=== PATIENT | male | born 1945 | race Asian ===

== ENCOUNTER → 2016-10-04 | Outpatient (CLI) | payer BC ==
[~2016-10-04] MED LIST: LEVO100T PO
== END | disposition home or self-care (01) ==
LOC: C.LABSPEC 12:26
PROVIDERS: ATTEND Urology
DX: R97.20 Elevated prostate specific antigen [PSA] (principal)

== ENCOUNTER → 2016-11-20 | Outpatient (CLI) | payer BC ==
[2016-11-20 10:50] LABS: COMPLETE YES; EOS % 4.5 %; HEMATOCRIT 41.1 % (42-52); IG% 0.2 %; LYMPH % 24.4 %; LYMPH ABS # 1.09 K/uL (1.2-3.4); MEAN CELL VOLUME 78.6 fL (80-100); MEAN CORPUSCULAR HEMOGLOBIN 25.6 pg (25-34); MEAN CORPUSCULAR HGB CONC 32.6 g/dl (32-36); MEAN PLATELET VOLUME 9.7 fL (7.4-10.4); MONO % 7.8 %; NEUT % 63.1 %; PLATELET COUNT 228 K/uL (130-400); RED BLOOD COUNT 5.23 M/uL (4.7-6.1); WHITE BLOOD COUNT 4.47 K/uL (4.8-10.8)
[2016-11-20 11:37] LABS: ALB/GLOB RATIO 1.3 (0.9-2); ALKALINE PHOSPHATASE 62 U/L (45-117); ALT/SGPT 27 U/L (12-78); AST/SGOT 13 U/L (15-37); BLOOD UREA NITROGEN 10 mg/dl (7-18); BUN/CREATININE RATIO 9.2 (10-20); CALCIUM 9.2 mg/dl (8.5-10.1); CARBON DIOXIDE 28 mmol/L (21-32); CHLORIDE 101 mmol/L (98-107); CHOLESTEROL 173 mg/dl (0-200); GLUCOSE 95 mg/dl (70-99); POTASSIUM 4.4 mmol/L (3.5-5.1); SODIUM 136 mmol/L (136-145)
[2016-11-20 11:51] LABS: CHOLESTEROL/HDL RATIO 3.2; HDL CHOLESTEROL 54 mg/dl; LDL CHOLESTEROL CALCULATED 105 mg/dl; THYROID STIMULATING HORMONE 0.821 uIu/ml (0.300-4.500); TRIGLYCERIDES 71 mg/dl (0-150); VERY LOW DENSITY LIPOPROT CALC 14 mg/dl
== END ==
LOC: C.LABBC 08:28
PROVIDERS: ATTEND Physician Assistant
DX: D64.9 Anemia, unspecified (principal); E78.5 Hyperlipidemia, unspecified; E03.9 Hypothyroidism, unspecified

== ENCOUNTER → 2017-08-07 | Outpatient (CLI) | payer OTHER | END | disposition home or self-care (01) | LOC: C.LAB 11:32 | PROVIDERS: ATTEND Urology | DX: R97.20 Elevated prostate specific antigen [PSA] (principal) ==

== ENCOUNTER 2022-11-08 20:44 | Inpatient (IN) ==
[2022-11-08] MEDS ORDERED: CLOPIDOGREL BISULFATE 300 MG TAB PO STA (20:53)
[2022-11-08] MEDS ORDERED: Heparin IV Adult Wt-Based Low-Dose WITH Bolus Protocol STA ×2 (20:53→21:09)
[2022-11-08] MEDS ORDERED: ATROPINE SO4 1 MG/ML 1ML VIAL ONE (20:58)
[2022-11-08] MEDS ORDERED: SODIUM CHLORIDE 0.9% 500 ML IV SCH (21:00)
--- NOTE | 2022-11-08 21:00 | Emergency Department Note ---
Impression & Plan ST elevation (STEMI) myocardial infarction ED Provider Note NAME: GORDON VERAS AGE: 77 SEX: M : 1945 ARRIVES VIA: Ambulance INFORMANT: Patient, ED PROVIDER(S): Haresh Wilkinson MD CHIEF COMPLAINT: Jaw pain MEDICAL DECISION MAKING: Patient presents due to concern for jaw pain which is exertional in nature with concerning dynamic EKG changes via EMS. Given this concern I did initiate a heart alert upon entering the patient's room. Patient was ordered IV heparin, Plavix 300 mg p.o. as the patient had already received aspirin. Given concern for possible inferior UT nitro was held and the patient does not have active chest pains. IV was established blood work was initiated. The patient was bradycardic in the 40s and 50s with pacer pads were placed. The patient's blood work shows a normal white count hemoglobin of 12 mild anemia. Platelet count is unremarkable. Patient's anemia is chronic and stable from comparison. Kidney function is unremarkable. Lab glucose 172. Electrolytes are unremarkable. COVID-negative. Chest x-ray is unremarkable. Dr. Brooks did evaluate the patient at the bedside. We did discuss the patient's care and the patient was immediately taken to [facility]. I did speak the on- call hospitalist service Dr. Winters for admission post catheterization. Troponin of 11. 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 Critical Care: I have personally spent 45 minutes of critical care time in direct management of this patient. This includes bedside care, interpretation of diagnostic studies, and testing, discussion with consultants, patient, and family members, and other require inpatient management activities. This 45 minutes is in excess of all separately billable procedures. Prior /Outside records reviewed: I did review the patient's nephrology visit with Dr. Tovar from September 28, 2022. Differential diagnosis: Cardiac ischemia, aortic dissection, pulmonary embolism, pneumothorax, pneumonia, pericarditis, myocarditis, esophageal rupture, GERD, cholecystitis, pancreatitis, musculoskeletal, as well as other pathologies. Diagnostics, as interpreted by me: ECG: EMS EKG #1 sinus bradycardia with first-degree AV block, rate of 41, normal QRS normal axis no obvious ST elevations possible slight depressions in the lateral leads. Second EMS EKG interpreted by me Sinus, rate of 68, normal QRS, normal axis, T wave inversion in the high lateral leads no obvious ST elevation. Repeat EMS EKG #3 interpreted by me Sinus rhythm with second-degree AV block, rate of 47, normal QRS duration, normal axis, ST depressions anteriorly and laterally deeper depressions in the high lateral leads. Cardiac monitoring: An order was placed for continuous cardiac monitoring. The monitor shows a rate of 44 with 2-1 heart block rhythm. Patient was placed on pulse oximetry Medical decision rules: None Imaging studies: See below I did inform the interpreted the patient's chest x-ray which shows no obvious pneumonia or pneumothorax. HPI: Patient presents via EMS due to concern for jaw pain. Patient states that he developed symptoms earlier in the afternoon and noticed that the left side of his jaw and neck. Patient denies any chest pains or shortness of breath no leg swelling or calf pain. Patient denies any cough or fevers. The patient does have a known history of hypertension and hyperlipidemia. The patient does take medications and takes them regularly. Patient denies any falls or trauma. The patient did try a baby aspirin as well as a Pepcid which she thought may be mildly improved his symptoms. The patient did notice that he had exertional jaw pain today. EMS did receive the patient they did send EKGs. Patient did receive full dose aspirin in route but no nitro. PAST MEDICAL HISTORY: See Below PAST SURGICAL HISTORY: See Below SOCIAL HISTORY: See Below HOME MEDICATIONS: See Below ALLERGIES: See Below VITALS: See Below PHYSICAL EXAMINATION: GENERAL: NAD, wearing a mask, non-toxic. EYE EXAM: Normal conjunctiva. PERRL, no anisocoria and EOM's grossly intact w/o pain. NECK: Supple, no nuchal rigidity, no adenopathy, non-tender. No signs of meningismus. FROM of the neck with good chin to chest and neck extension. No stridor. LUNGS: Clear to auscultation. Normal chest wall mechanics. HEART: Bradycardic, no MRG. ABDOMEN: Abdomen soft, non-tender, no masses, no rebound or guarding. BACK: No CVA TTP. SKIN: No rashes and no bruising. UPPER EXTREMITIES: Upper extremities are grossly normal. LOWER EXTREMITIES: Grossly normal, no edema. Negative Homans' sign bilaterally NEURO EXAM: A&O x3, cranial nerves II-XII grossly intact, normal speech, moves all 4 extremities. Past Med/Surg History Medical History Anemia Benign prostatic hyperplasia with urinary obstruction Hyperlipidemia Hypertension Hypothyroidism Nephrolithiasis Non Hodgkin's lymphoma Surgical History History of colonoscopy History of lithotripsy History of lymph node biopsy lymphadenectomy History of repair of rotator cuff History of tonsillectomy Status post biopsy of skin excisional node biopsy left neck area Status post cataract extraction Family History Father , age 70 Stroke syndrome Stroke Mother , age 55 Hypertension Family history of cervical cancer Ovarian cancer Sister Hypertension Aunt Breast cancer Other Cancer Heart disease Denies family history of Prostate cancer Myocardial infarction Lung cancer Colorectal cancer Social History Smoking Status: Never smoker Second Hand Exposure: No; Do You Dip or Chew Tobacco: No; Hx Alcohol Use: No Hx Substance Use: No Preferred Language: Samoan Communication Ability: Effective Visual Impairment: Limited Hearing Ability: Normal Per Diem Nurse Required: No Beliefs That Will Affect Care: None marital status: Current Living Situation: Spouse Current Living Situation Comment: home with current occupational status: employed 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 [employer] How many Children do You have: 1 Other Information That Helps Us Care for You: No Feels Safe at Home: Yes Safety Concerns: Feels Safe At This Time Childhood Exposure to Second-Hand Smoke: Yes (father smoked ) caffeine: Yes (drinks 2-3 cups coffee daily ) Dental Care, Regularly: Yes Physical Activity Frequency: 5-6 Times per Week Seatbelt Use: always Sunscreen Use: No Assistive Devices: None Allergies Allergies Allergy/AdvReac Type Severity Reaction Status Date / Time No Known Allergies Allergy Unknown Verified 11/08/22 21:15 Home Meds Home Medications Medication Instructions Recorded Confirmed biotin 5 mg capsule 5 mg PO DAILY 11/10/19 11/08/22 cholecalciferol (vitamin D3) 125 125 mcg PO DAILY 11/10/19 11/08/22 mcg (5,000 unit) capsule krill oil 500 mg capsule 500 mg PO DAILY 02/17/21 11/08/22 multivitamin 1 tab PO DAILY 11/08/22 11/08/22 Previous Rx's Medication Instructions Recorded lisinopril 10 mg tablet 10 mg PO DAILY #90 tabs 01/23/22 pravastatin 20 mg tablet 20 mg PO DAILY #90 tabs 01/23/22 levothyroxine 75 mcg tablet 75 mcg PO DAILY #90 tabs 08/03/22 Results & Data (ED) Vital Signs Vital Signs - 24 hr 11/08/22 20:47 11/08/22 20:47 11/08/22 20:47 Temperature 36.5 C 36.5 C Temperature Source Oral Pulse Rate 46 L 43 L Pulse Rate from SpO2 Sensor Pulse Rhythm Regular Pulse Strength Normal Respiratory Rate 20 20 20 Respiratory Effort / Characteristics Non-Labored Spontaneous Non-Labored Spontaneous Respiratory Depth Normal Normal Respiratory Pattern Regular Blood Pressure 116/58 L Blood Pressure [Right Arm] 120/55 L Blood Pressure Mean 77 Blood Pressure Mean [Right Arm] 76 Pulse Oximetry 100 98 99 Oxygen Delivery Method Room Air Room Air Room Air Sepsis Recent Fever Within 48 Hours No Sepsis New/Unexplained Change in Mental Status No Sepsis Action Taken by Nursing No Action Required 11/08/22 20:49 11/08/22 20:53 11/08/22 20:53 Temperature Temperature Source Pulse Rate 51 L Pulse Rate from SpO2 Sensor Pulse Rhythm Pulse Strength Respiratory Rate Respiratory Effort / Characteristics Respiratory Depth Respiratory Pattern Blood Pressure Blood Pressure [Right Arm] Blood Pressure Mean Blood Pressure Mean [Right Arm] Pulse Oximetry 98 98 Oxygen Delivery Method Room Air Room Air Sepsis Recent Fever Within 48 Hours Sepsis New/Unexplained Change in Mental Status Sepsis Action Taken by Nursing 11/08/22 20:50 11/08/22 20:54 11/08/22 20:54 Temperature Temperature Source Pulse Rate 50 L 42 L Pulse Rate from SpO2 Sensor 49 L Pulse Rhythm Pulse Strength Respiratory Rate 21 22 Respiratory Effort / Characteristics Respiratory Depth Respiratory Pattern Blood Pressure 116/58 L 120/55 L Blood Pressure [Right Arm] Blood Pressure Mean 77 76 Blood Pressure Mean [Right Arm] Pulse Oximetry 97 Oxygen Delivery Method Sepsis Recent Fever Within 48 Hours Sepsis New/Unexplained Change in Mental Status Sepsis Action Taken by Nursing 11/08/22 20:55 11/08/22 21:00 11/08/22 21:00 Temperature Temperature Source Pulse Rate 44 L 48 L Pulse Rate from SpO2 Sensor 41 L 46 L Pulse Rhythm Pulse Strength Respiratory Rate 22 24 Respiratory Effort / Characteristics Respiratory Depth Respiratory Pattern Blood Pressure 128/60 Blood Pressure [Right Arm] Blood Pressure Mean 82 Blood Pressure Mean [Right Arm] Pulse Oximetry 98 97 Oxygen Delivery Method Sepsis Recent Fever Within 48 Hours Sepsis New/Unexplained Change in Mental Status Sepsis Action Taken by Nursing 11/08/22 22:34 11/08/22 22:35 11/08/22 22:35 Temperature Temperature Source Pulse Rate 100 H 98 H Pulse Rate from SpO2 Sensor 100 H Pulse Rhythm Pulse Strength Respiratory Rate 18 17 Respiratory Effort / Characteristics Respiratory Depth Respiratory Pattern Blood Pressure 120/73 Blood Pressure [Right Arm] Blood Pressure Mean 78 Blood Pressure Mean [Right Arm] Pulse Oximetry 97 Oxygen Delivery Method Sepsis Recent Fever Within 48 Hours Sepsis New/Unexplained Change in Mental Status Sepsis Action Taken by Prison Medications Current Medication List: was personally reviewed by me Laboratory Data Attestation: I reviewed the patient's lab results. 11/08/22 20:55 11/08/22 20:55 Lab Results 11/08/22 11/08/22 11/08/22 Range/Units 20:50 20:55 20:55 WBC 7.88 (4.8-10.8) K/ul RBC 4.38 L (4.70-6.10) M/uL Hgb 12.0 L (14.0-18.0) g/dl POC Hgb (14.0-18.0) g/dl Hct 36.3 L (42.0-52.0) % POC Hct (42-52) % MCV 82.9 (80.0-100.0) fL MCH 27.4 (25.0-34.0) pg MCHC 33.1 (32.0-36.0) g/dL RDW Std Deviation 36.0 L (36.4-46.3) fL RDW Coeff of John 11.9 (11.5-14.5) % Plt Count 239 (130-400) K/uL MPV 10.0 (9.4-12.4) fL Immature Gran % (Auto) 0.4 % Neut % (Auto) 55.8 % Lymph % (Auto) 32.4 % [place] % (Auto) 7.5 % Eos % (Auto) 3.6 % Baso % (Auto) 0.3 % Neut # (Auto) 4.41 (1.40-6.50) K/uL Lymph # (Auto) 2.55 (1.2-3.4) K/uL [place] # (Auto) 0.59 (0.11-0.59) K/uL Eos # (Auto) 0.28 (0-0.50) K/uL Baso # (Auto) 0.02 (0-0.2) K/uL Immature Gran # (Auto) 0.03 (0.01-0.20) K/uL PT 10.6 (9.0-12.0) Seconds INR 1.0 (0.9-1.1) APTT 25.6 (21.0-31.0) Seconds PTT Ratio 0.9 Activ Coag Time Kaolin (94-140) SECONDS POC Sodium (135-144) mmol/L Sodium (136-145) mmol/L POC Potassium (3.3-5.0) mmol/L Potassium (3.5-5.1) mmol/L POC Chloride (101-112) mmol/L Chloride (98-107) mmol/L Carbon Dioxide (21-32) mmol/L POC Total CO2 (24-31) mmol/L Anion Gap (3-11) POC Anion Gap (16-25) mmol/L POC BUN (7-18) mg/dl BUN (6-23) mg/dl Creatinine (0.6-1.4) mg/dl POC Creatinine (0.6-1.3) mg/dl Est Cr Clr Drug Dosing ml/min Est GFR ( Amer) ml/min Est GFR (Non-Af Amer) ml/min BUN/Creatinine Ratio (10-20) Glucose (70-99(Fasting)) mg/dl POC Glucose (other) (70-99) mg/dl Calcium (8.6-10.3) mg/dl POC Ioniz Calcium Mandy (1.12-1.32) mmol/l Magnesium (1.7-2.4) mg/dl Total Bilirubin (0.2-1.0) mg/dl AST (13-39) U/L ALT (7-52) U/L Alkaline Phosphatase (34-104) U/L Total Creatine Kinase (30-223) U/L Troponin I High Sens (0-20) pg/ml B-Natriuretic Peptide (0-100) pg/ml Total Protein (6.0-8.3) gm/dl Albumin (3.4-5.0) gm/dl Globulin (2.5-4.0) gm/dl Albumin/Globulin Ratio (0.9-2) Lipase (11-82) U/L TSH (0.300-4.500) uIu/ml SARS-CoV-2, RNA, NAAT NEGATIVE (NEGATIVE) 11/08/22 11/08/22 11/08/22 Range/Units 20:55 20:55 20:55 WBC (4.8-10.8) K/ul RBC (4.70-6.10) M/uL Hgb (14.0-18.0) g/dl POC Hgb (14.0-18.0) g/dl Hct (42.0-52.0) % POC Hct (42-52) % MCV (80.0-100.0) fL MCH (25.0-34.0) pg MCHC (32.0-36.0) g/dL RDW Std Deviation (36.4-46.3) fL RDW Coeff of John (11.5-14.5) % Plt Count (130-400) K/uL MPV (9.4-12.4) fL Immature Gran % (Auto) % Neut % (Auto) % Lymph % (Auto) % [place] % (Auto) % Eos % (Auto) % Baso % (Auto) % Neut # (Auto) (1.40-6.50) K/uL Lymph # (Auto) (1.2-3.4) K/uL [place] # (Auto) (0.11-0.59) K/uL Eos # (Auto) (0-0.50) K/uL Baso # (Auto) (0-0.2) K/uL Immature Gran # (Auto) (0.01-0.20) K/uL PT (9.0-12.0) Seconds INR (0.9-1.1) APTT (21.0-31.0) Seconds PTT Ratio Activ Coag Time Kaolin (94-140) SECONDS POC Sodium (135-144) mmol/L Sodium 137 (136-145) mmol/L POC Potassium (3.3-5.0) mmol/L Potassium 3.9 (3.5-5.1) mmol/L POC Chloride (101-112) mmol/L Chloride 104 (98-107) mmol/L Carbon Dioxide 28 (21-32) mmol/L POC Total CO2 (24-31) mmol/L Anion Gap 5 (3-11) POC Anion Gap (16-25) mmol/L POC BUN (7-18) mg/dl BUN 16 (6-23) mg/dl Creatinine 1.12 (0.6-1.4) mg/dl POC Creatinine (0.6-1.3) mg/dl Est Cr Clr Drug Dosing 55.3 ml/min Est GFR ( Amer) 72.5 ml/min Est GFR (Non-Af Amer) 62.6 ml/min BUN/Creatinine Ratio 14.3 (10-20) Glucose 172 H (70-99(Fasting)) mg/dl POC Glucose (other) (70-99) mg/dl Calcium 9.1 (8.6-10.3) mg/dl POC Ioniz Calcium Mandy (1.12-1.32) mmol/l Magnesium 1.9 (1.7-2.4) mg/dl Total Bilirubin 0.3 (0.2-1.0) mg/dl AST 15 (13-39) U/L ALT 15 (7-52) U/L Alkaline Phosphatase 56 (34-104) U/L Total Creatine Kinase 71 (30-223) U/L Troponin I High Sens 11.7 (0-20) pg/ml B-Natriuretic Peptide 23 (0-100) pg/ml Total Protein 6.2 (6.0-8.3) gm/dl Albumin 4.1 (3.4-5.0) gm/dl Globulin 2.1 L (2.5-4.0) gm/dl Albumin/Globulin Ratio 2.0 (0.9-2) Lipase 31 (11-82) U/L TSH 1.583 (0.300-4.500) uIu/ml SARS-CoV-2, RNA, NAAT (NEGATIVE) 11/08/22 11/08/22 Range/Units 21:02 21:53 WBC (4.8-10.8) K/ul RBC (4.70-6.10) M/uL Hgb (14.0-18.0) g/dl POC Hgb 12.2 L (14.0-18.0) g/dl Hct (42.0-52.0) % POC Hct 36 L (42-52) % MCV (80.0-100.0) fL MCH (25.0-34.0) pg MCHC (32.0-36.0) g/dL RDW Std Deviation (36.4-46.3) fL RDW Coeff of John (11.5-14.5) % Plt Count (130-400) K/uL MPV (9.4-12.4) fL Immature Gran % (Auto) % Neut % (Auto) % Lymph % (Auto) % [place] % (Auto) % Eos % (Auto) % Baso % (Auto) % Neut # (Auto) (1.40-6.50) K/uL Lymph # (Auto) (1.2-3.4) K/uL [place] # (Auto) (0.11-0.59) K/uL Eos # (Auto) (0-0.50) K/uL Baso # (Auto) (0-0.2) K/uL Immature Gran # (Auto) (0.01-0.20) K/uL PT (9.0-12.0) Seconds INR (0.9-1.1) APTT (21.0-31.0) Seconds PTT Ratio Activ Coag Time Kaolin 299 H (94-140) SECONDS POC Sodium 139 (135-144) mmol/L Sodium (136-145) mmol/L POC Potassium 3.7 (3.3-5.0) mmol/L Potassium (3.5-5.1) mmol/L POC Chloride 101 (101-112) mmol/L Chloride (98-107) mmol/L Carbon Dioxide (21-32) mmol/L POC Total CO2 25 (24-31) mmol/L Anion Gap (3-11) POC Anion Gap 17.0 (16-25) mmol/L POC BUN 15 (7-18) mg/dl BUN (6-23) mg/dl Creatinine (0.6-1.4) mg/dl POC Creatinine 1.2 (0.6-1.3) mg/dl Est Cr Clr Drug Dosing ml/min Est GFR ( Amer) ml/min Est GFR (Non-Af Amer) ml/min BUN/Creatinine Ratio (10-20) Glucose (70-99(Fasting)) mg/dl POC Glucose (other) 164 H (70-99) mg/dl Calcium (8.6-10.3) mg/dl POC Ioniz Calcium Mandy 1.22 (1.12-1.32) mmol/l Magnesium (1.7-2.4) mg/dl Total Bilirubin (0.2-1.0) mg/dl AST (13-39) U/L ALT (7-52) U/L Alkaline Phosphatase (34-104) U/L Total Creatine Kinase (30-223) U/L Troponin I High Sens (0-20) pg/ml B-Natriuretic Peptide (0-100) pg/ml Total Protein (6.0-8.3) gm/dl Albumin (3.4-5.0) gm/dl Globulin (2.5-4.0) gm/dl Albumin/Globulin Ratio (0.9-2) Lipase (11-82) U/L TSH (0.300-4.500) uIu/ml SARS-CoV-2, RNA, NAAT (NEGATIVE) Administered Medications Sodium Chloride (Nss 1000ml) 1,000 mls @ 100 mls/hr IV .Q10H NAHUM Stop: 11/09/22 03:44 Last Admin: 11/08/22 23:09 Dose: 100 mls/hr Documented By: TIGIST Discontinued Medications Atropine Sulfate (Atropine So4 1 Mg/Ml 1ml Vial) Confirm Administered Dose 1 mg .ROUTE .STK-MED ONE Stop: 11/08/22 20:59 Last Admin: 11/08/22 21:54 Dose: 1 mg Documented By: JAYLA Clopidogrel Bisulfate (Clopidogrel Bisulfate 300 Mg Tab) 300 mg PO NOW STA Stop: 11/08/22 20:54 Last Admin: 11/08/22 20:59 Dose: 300 mg Documented By: HUMBERTO Dopamine HCl/Dextrose (Dopamine 400mg / 250ml D5w ([facility] Use Only)) Confirm Administered Dose 400 mg IV .STK-MED ONE Stop: 11/08/22 21:47 Last Admin: 11/08/22 21:56 Dose: 5 mcg Documented By: JAYLA Fentanyl Citrate (Fentanyl Citrate Pf 100 Mcg/2 Ml Vial) Confirm Administered Dose 100 mcg .ROUTE .STK-MED ONE Stop: 11/08/22 21:09 Last Increment: 11/08/22 22:05 Dose: 50 mcg Documented By: JAYLA Heparin Sodium (Porcine) (Heparin (Porcine) 1000 Unit/Ml 10 Ml ([facility] Use Only)) Confirm Administered Dose 10,000 units .ROUTE .STK-MED ONE Stop: 11/08/22 21:08 Last Admin: 11/08/22 22:05 Dose: 5,000 units Documented By: JAYLA Heparin Sodium (Porcine) (Heparin Sod (Porcine) 1000 Unit/Ml) Confirm Administered Dose 1,000 units .ROUTE .STK-MED ONE Stop: 11/08/22 21:19 Last Admin: 11/08/22 21:22 Dose: 4,000 units Documented By: MICK Co-signed By: HUMBERTO Heparin Sodium/Dextrose (Heparin 29678 Unit/500 Ml D5w) Confirm Administered Dose 25,000 units IV .STK-MED ONE Stop: 11/08/22 21:14 Last Admin: 11/08/22 21:24 Dose: 3,000 units Documented By: MICK Co-signed By: MATTIE Heparin Sodium/Sodium Chloride (Heparin In Nss Infusion 1000 Unit/500 Ml (2 U/Ml ) Bag) Confirm Administered Dose 3,000 units IV .STK-MED ONE Stop: 11/08/22 21:09 Last Admin: 11/08/22 23:08 Dose: Not Given Documented By: TIGIST Sodium Chloride (Nss) 500 mls @ 999 mls/hr IV .Q31M [facility] Stop: 11/08/22 21:30 Last Infusion: 11/08/22 23:10 Dose: 0 mls/hr Documented By: Admin: 11/08/22 21:00 Dose: 999 mls/hr Documented By: HUMBERTO Midazolam HCl (Midazolam Hcl 1 Mg/Ml 2ml Vial) Confirm Administered Dose 2 mg .ROUTE .STK-MED ONE Stop: 11/08/22 21:08 Last Admin: 11/08/22 21:54 Dose: 2 mg Documented By: JAYLA Nicardipine HCl (Nicardipine Hcl Inj 2.5 Mg/Ml 10 Ml Amp) Confirm Administered Dose 25 mg .ROUTE .STK-MED ONE Stop: 11/08/22 21:08 Last Admin: 11/08/22 21:54 Dose: 25 mg Documented By: GABBY Nitroglycerin/Dextrose (Nitroglycerin/D5w 100mcg/Ml 20ml Syr) Confirm Administered Dose 2,000 mcg .ROUTE .STK-MED ONE Stop: 11/08/22 21:09 Last Admin: 11/08/22 21:55 Dose: 2,000 mcg Documented By: GABBY Ondansetron HCl (Ondansetron Inj 2 Mg/Ml 2 Ml Vial) Confirm Administered Dose 4 mg .ROUTE .STK-MED ONE Stop: 11/08/22 21:31 Last Admin: 11/08/22 23:08 Dose: Not Given Documented By: TIGIST Imaging Data Radiologist's Impression: Chest X-Ray 11/08/22 20:53 SINGLE VIEW CHEST CLINICAL HISTORY: Atypical chest pain. FINDINGS: An AP, portable, upright chest radiograph is compared to chest x-ray and chest CT dated 01/08/2016. The cardiomediastinal silhouette is unremarkable. Chronic interstitial thickening is similar to previous. The lungs and pleural spaces are clear. No pneumothorax is seen. The skeletal structures are osteopenic. The bony thorax is grossly intact. IMPRESSION: No active disease in the chest. ACT 112: Negative or not required by law. Electronically signed by: Kevin Jiménez M.D. 11/08/2022 9:17 PM Discharge Plan Visit Data Chief Complaint: Cardiac Assessment Stated Complaint: Jaw Pain, Diaphoresis, Dizziness ED Provider: Haresh Wilkinson Discharge Problem: ST elevation (STEMI) myocardial infarction Patient Disposition: Admitted As Inpatient Discharge Instructions Interventions: ED Discharge Assessment Last Done: 11/08/22 21:24
[2022-11-08] MEDS ORDERED: niCARdipine HCL INJ 2.5 MG/ML 10 ML AMP ONE (21:07)
[2022-11-08] MEDS ORDERED: MIDAZOLAM HCL 1 MG/ML 2ML VIAL ONE (21:07)
[2022-11-08] MEDS ORDERED: HEPARIN (PORCINE) 1000 UNIT/ML 10 ML (CATH LAB USE ONLY) ONE (21:07)
[2022-11-08] MEDS ORDERED: NITROGLYCERIN/D5W 100MCG/ML 20ML SYR ONE (21:08)
[2022-11-08] MEDS ORDERED: fentaNYL citrate PF 100 MCG/2 ML VIAL ONE (21:08)
[2022-11-08 21:10] LABS: Basophils # (auto) 0.02 K/uL (0-0.2); Basophils % (auto) 0.3 %; Eosinophils # (auto) 0.28 K/uL (0-0.50); Eosinophils % (auto) 3.6 %; Hematocrit (blood only) 36.3 % (42.0-52.0); Immature Granulocytes # (auto) 0.03 K/uL (0.01-0.20); Immature Granulocytes % (auto) 0.4 %; Lymphocytes # (auto) 2.55 K/uL (1.2-3.4); Lymphocytes % (auto) 32.4 %; Mean Corpuscular Hemoglobin 27.4 pg (25.0-34.0); Mean Corpuscular Hgb Conc 33.1 g/dL (32.0-36.0); Mean Corpuscular Volume 82.9 fL (80.0-100.0); Monocytes # (auto) 0.59 K/uL (0.11-0.59); Monocytes % (auto) 7.5 %; Neutrophils # (auto) 4.41 K/uL (1.40-6.50); Neutrophils % (auto) 55.8 %; Platelet Count 239 K/uL (130-400); RDW Coefficient of Variation 11.9 % (11.5-14.5); Red Blood Count 4.38 M/uL (4.70-6.10); White Blood Count 7.88 K/ul (4.8-10.8)
[2022-11-08] MEDS ORDERED: HEPARIN 25000 UNIT/500 ML D5W IV ONE (21:13)
[2022-11-08 21:16] LABS: iSTAT Creatinine 1.2 mg/dl (0.6-1.3); iSTAT Hemoglobin 12.2 g/dl (14.0-18.0); iSTAT Ionized Calcium 1.22 mmol/l (1.12-1.32); iSTAT Potassium 3.7 mmol/L (3.3-5.0)
[2022-11-08] MEDS ORDERED: HEPARIN SOD (PORCINE) 1000 UNIT/ML ONE (21:18)
--- NOTE | 2022-11-08 21:19 | XRay Report ---
SINGLE VIEW CHEST CLINICAL HISTORY: Atypical chest pain. FINDINGS: An AP, portable, upright chest radiograph is compared to chest x-ray and chest CT dated 12/28. The cardiomediastinal silhouette is unremarkable. Chronic interstitial thickening is similar to previous. The lungs and pleural spaces are clear. No pneumothorax is seen. The skeletal structures are osteopenic. The bony thorax is grossly intact. IMPRESSION: No active disease in the chest. ACT 112: Negative or not required by law. Electronically signed by: Kevin Jiménez M.D. 11/08/2022 9:17 PM
--- NOTE | 2022-11-08 21:28 | Pre Anesthesia Assessment ---
Date of Service November 08, 2022 Pre Sedation Assessment Vital Signs Temp Pulse Resp BP BP Pulse Ox O2 Del Method 11/08/22 21:00 48 L 24 97 11/08/22 21:00 128/60 11/08/22 20:55 44 L 22 98 11/08/22 20:54 120/55 L 11/08/22 20:54 42 L 22 11/08/22 20:50 50 L 21 116/58 L 97 11/08/22 20:53 98 Room Air 11/08/22 20:53 98 Room Air 11/08/22 20:49 51 L 11/08/22 20:47 20 120/55 L 99 Room Air 11/08/22 20:47 97.7 F 43 L 20 98 Room Air 11/08/22 20:47 97.7 F 46 L 20 116/58 L 100 Room Air Cardiovascular RRR, no murmur, no edema Respiratory normal respiratory effort, lungs clear to auscultation Pre-Sedation Airway Assessment Smoking Status: Never smoker Thyromental Distance: > or= 3.5 Finger Breadths Oral Cavity: + WNL Mallampati Class: III Procedure Planning Contraindications for Sedation: none Current Medications Reviewed: Yes Notes The planned sedation has been discussed with the patient. Informed Consent was obtained. I have identified the patient, determined the appropriateness of sedation and have assessed the patient immediately prior to the procedure. All medicine(s) and interventions are by my order.
[2022-11-08] MEDS ORDERED: ONDANSETRON INJ 2 MG/ML 2 ML VIAL ONE (21:30)
--- NOTE | 2022-11-08 21:33 | Cardiology Consultation ---
Date of Consultation November 08, 2022 Assessment & Plan (1) STEMI (ST elevation myocardial infarction): Plan Presentation consistent with inferior STEMI and recommend proceeding with emergent cardiac catheterization and likely primary PCI. No apparent contraindications to procedure. Discussed risks, benefits, alternatives of procedure with patient and they are willing to proceed. Given IV heparin and clopidogrel 300 mg in the ED. Further recommendations pending findings of coronary angiography. History of Present Illness History of Present Illness 77-year-old man here with acute chest pain and ECG concerning for acute UT. Patient seen emergently in the ED after heart alert activated on arrival. No prior cardiac history. Cardiac risk factors include hypertension, dyslipidemia. 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 Recurrent jaw/neck discomfort and minimal chest pain later this evening while out at dinner. Took aspirin, Pepcid without significant relief. EMS contacted At time of arrival still with 4 out of 10 jaw/neck discomfort and nausea. Bradycardic to 40s with 2-1 AV block. Serial ECGs showed transient inferior ST elevations. 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 Allergies Allergy/AdvReac Type Severity Reaction Status Date / Time No Known Allergies Allergy Unknown Verified 11/08/22 21:15 Home Medications Medication Instructions Recorded Confirmed Type biotin 5 mg capsule 5 mg PO DAILY 11/10/19 11/08/22 History cholecalciferol (vitamin D3) 125 125 mcg PO DAILY 11/10/19 11/08/22 History mcg (5,000 unit) capsule krill oil 500 mg capsule 500 mg PO DAILY 02/17/21 11/08/22 History lisinopril 10 mg tablet 10 mg PO DAILY #90 tabs 01/23/22 11/08/22 Rx pravastatin 20 mg tablet 20 mg PO DAILY #90 tabs 01/23/22 11/08/22 Rx levothyroxine 75 mcg tablet 75 mcg PO DAILY #90 tabs 08/03/22 11/08/22 Rx multivitamin 1 tab PO DAILY 11/08/22 11/08/22 History Patient History Medical History Anemia Benign prostatic hyperplasia with urinary obstruction Hyperlipidemia Hypertension Hypothyroidism Nephrolithiasis Non Hodgkin's lymphoma Surgical History History of colonoscopy History of lithotripsy History of lymph node biopsy History of repair of rotator cuff History of tonsillectomy Status post biopsy of skin Status post cataract extraction Family History Father Stroke syndrome Stroke Mother Hypertension Family history of cervical cancer Ovarian cancer Sister Hypertension Aunt Breast cancer Other Cancer Heart disease Denies family history of Prostate cancer Myocardial infarction Lung cancer Colorectal cancer Social History Smoking Status: Never smoker Second Hand Exposure: No; Hx Alcohol Use: Yes Alcohol type: wine and hard liquor Alcohol type Comment: maybe gin Alcohol Intake Frequency: Monthly or Less Hx Substance Use: No Preferred Language: Hebrew Communication Ability: Effective Visual Impairment: Limited Hearing Ability: Normal Flight Communications Operator Required: No marital status: Current Living Situation: Spouse current occupational status: employed 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 [employer] How many Children do You have: 1 Feels Safe at Home: Yes Childhood Exposure to Second-Hand Smoke: Yes (father smoked ) caffeine: Yes (drinks 2-3 cups coffee daily ) Dental Care, Regularly: Yes Physical Activity Frequency: 5-6 Times per Week Seatbelt Use: always Sunscreen Use: No Review of Systems Review of Systems: Not completed in the setting of emergent situation Physical Exam Physical Exam: General: Uncomfortable HEENT: Sclerae anicteric Lungs: Clear anteriorly Cardiac: Bradycardic, regular Vascular: 2+ radial Abdomen: Soft, nontender Extremities: Well perfused, no peripheral edema Neuro: Nonfocal Psych: Alert orient x3, normal affect and mood Results & Data Vital Signs (Past 12 Hours) Vital Signs Temp Pulse Resp BP BP Pulse Ox O2 Del Method 11/08/22 21:00 48 L 24 97 11/08/22 21:00 128/60 11/08/22 20:55 44 L 22 98 11/08/22 20:54 120/55 L 11/08/22 20:54 42 L 22 11/08/22 20:50 50 L 21 116/58 L 97 11/08/22 20:53 98 Room Air 04/12/23 20:53 98 Room Air 11/08/22 20:49 51 L 11/08/22 20:47 20 120/55 L 99 Room Air 11/08/22 20:47 97.7 F 43 L 20 98 Room Air 11/08/22 20:47 97.7 F 46 L 20 116/58 L 100 Room Air PG Care Time/CCT Total # of Minutes Spent Total Time Spent with Patient: Total time spent is greater than 50% in coordination of care (as documented) at patient's floor/unit and/or counseling patient: Coding Level of Care Code 80007 ER DEPT VISIT MOD LVL 4 Diagnoses STEMI (ST elevation myocardial infarction) I21.3
[2022-11-08 21:39] LABS: Albumin Level 4.1 gm/dl (3.4-5.0); BUN Creatinine Ratio 14.3 (10-20); Bilirubin,Total 0.3 mg/dl (0.2-1.0); Calcium 9.1 mg/dl (8.6-10.3); Creatinine Clr Calc Pharmacy 55.3 ml/min; Est GFR (African American) 72.5 ml/min; Est GFR (Non-African American) 62.6 ml/min; Globulin 2.1 gm/dl (2.5-4.0); Magnesium 1.9 mg/dl (1.7-2.4); Potassium 3.9 mmol/L (3.5-5.1); Total Protein 6.2 gm/dl (6.0-8.3)
[2022-11-08] MEDS ORDERED: DOPamine 400MG / 250ML D5W (Cath Lab Use ONLY) IV ONE (21:46)
[2022-11-08 21:49] LABS: Partial Thromboplastin Ratio 0.9; Partial Thromboplastin Time 25.6 Seconds (21.0-31.0); Prothrombin Time 10.6 Seconds (9.0-12.0)
[2022-11-08 22:12] LABS: Troponin I High Sensitivity 11.7 pg/ml (0-20)
[2022-11-08] MEDS ORDERED: ACETAMINOPHEN 325 MG TAB PO PRN (22:32)
[2022-11-08] MEDS ORDERED: ONDANSETRON INJ 2 MG/ML 2 ML VIAL IV PRN (22:32)
[2022-11-08] MEDS ORDERED: SODIUM CHLORIDE 0.9% 1000ML 1,000 ML IV SCH (22:45)
--- NOTE | 2022-11-08 23:00 | Cardiac Catheterization ---
[facility] Data: Java Mobile Developer Cardiac Status Clinical evaluation leading to the procedure CAD Presenation: STEMI Anginal Classification: CCS IV Diagnostic Physicians Name: Chirag Brooks MD Closure Device Recommendations: PCI without planned CABG Cardiac Cath Procedure Full Procedure Date November 08, 2022 Pre-Procedure Diagnosis Pre-Procedure Diagnosis: STEMI AUC Score AUC Score: 9 Post-Procedure Diagnosis Post-Procedure Diagnosis: Severe CAD, Successful PCI and Elevated Intracardiac Pressures Procedure(s) Performed Procedure(s) Performed: Coronary Angiography, Left Heart Cath, Drug Eluting Stent and IVUS Train Operations Manager Chirag Brooks MD Cut Off Saw Operator(s) Gricel Estimated Blood Loss Estimated Blood Loss: 10 Medication(s) Medication(s): Clopidogrel, Fentanyl, Heparin, Lidocaine 1%, Nicardipine, Nitroglycerin and Versed Summary of Findings Indication: STEMI/Heart Alert Access: 6 Fr right radial artery Catheters: [place], JR4 guide, pigtail Findings: LM -normal caliber, 20% distal LAD -medium caliber vessel, 90% ostial, angulated proximal segment with diffuse 70 to 80% extending into mid segment. Remainder of vessel without significant disease. Small to medium D1 40% ostial Circumflex -medium caliber, 20 to 30% proximal stenosis, 95% focal mid segment. OM1, left PLB without significant disease. RCA -dominant, large caliber, 100% acute mid occlusion. After flow reestablished 30 to 40% distal stenosis prior to PDA. LVEDP -18 -- PCI -- Antithrombotic therapy: Heparin, clopidogrel Procedure: RCA cannulated with JR4 guide BMW wire passed across lesion into distal vessel Mid RCA lesion predilated with 2.5 compliant balloon [place] IVUS catheter placed into latemid RCA. Pullback revealed severe, diffuse disease extending back to proximal segment. Vessel with circumferential calcium at site of initial occlusion. Dilated lesion stented with 3.5 x 38 mm [place] drug-eluting stent Stent post-dilated with 4.0 noncompliant balloon IC vasodilators administered for spasm Repeat IVUS revealed well-expanded, well apposed stent with no apparent edge complications. Post procedure CHARLY 3 flow, stent well expanded with minimal residual stenosis and no apparent cardiac complications. Intraprocedure course complicated by bradycardia and hypotension following flow being reestablished in RCA. Responded to IV fluids, atropine and dopamine. Dopamine weaned off prior to completion of procedure. Arterial Closure: TR band Summary: 1. Inferior STEMI/acute 100% mid RCA occlusion 2. Severe non-culprit coronary artery disease -90% ostial/75% proximal to mid LAD Focal 95% mid circumflex 3. Borderline intracardiac filling pressure 4. Successful PCI of proximal to mid RCA with single drug-eluting stent (3.5 x 38 mm [place]; postdilated with 4.0 NC). Recommendations: Admit to ICU for continued monitoring Loaded with clopidogrel 600 mg in Java Mobile Developer Continue dual-antiplatelet therapy for at least 1 year. Trend troponins until peak, Check Echo Uptitrate beta-heena/RONALD as BP allows High-dose statin Consult cardiac Rehab Further discuss revascularization options of residual LAD, circumflex disease in morning. Hemodynamics Rest Ao:: 124/63/86 Final Ao: 110/50/75 LV: 114/18 Recommendations Recommendations: PCI without planned CABG Specimens Specimens: None Radiation Exposure (mGy) 679 Contrast (mls) 65 Anesthesia Moderate 3013-1781 Procedural Complication(s) None Disposition ICU I attest to the content of the Intraoperative Record and any orders documented therein. Any exceptions are noted below. [facility] Card Cath Procedure Codes Cardiac Catheterization Procedure 1: Cardiovascular Cath Procedures: 44944 Coronaries and LHC (+/-LV) Therapeutic Services & Ancillary Procedure 1: Cardiovascular Tx and Anc Procedures: 84194 IV Ultrasound (Coronary or Graft) Moderate Sedation Procedure 1: Sedation/Anesthesia: 57468 Mod Sedation by the same physician;Init15 Min Child Age 5 & Up Procedure 2: Sedation/Anesthesia: 99154 Mod Sedation by the same physician; Ea [id number] Minutes Stenting Procedure 1: Cardiovascular Stent Procedures: 94536 Perc transluminal revascularization of acute sub/total occl, aMI PG Care Time/CCT Total # of Minutes Spent Total Time Spent with Patient: Total time spent is greater than 50% in coordination of care (as documented) at patient's floor/unit and/or counseling patient:
--- NOTE | 2022-11-08 23:14 | Critical Care Consultation ---
Date of Consultation November 08, 2022 Assessment & Plan (1) STEMI (ST elevation myocardial infarction): Patient with inferior ST elevation on EKG on initial presentation and heart alert was initiated. In the ER patient was given IV heparin and 300 Plavix. He now presents to the ICU status post PCI with VICTOR HUGO x1 to the RCA. No further ST elevation on repeat EKG. NSR on monitor. Future plan for patient to undergo additional stent to the LAD. -Trend troponin for peak - Follow-up echo in a.m. - Maximize electrolytes and monitor with routine BMP - Continue ASA, Brilinta, MTP, lisinopril, Statin -Strict I's and O's, daily weights -Heart healthy diet - Continuous monitoring on telemetry (2) Hypothyroidism: Continue Synthroid (3) Hyperlipidemia: Follow-up lipid panel, continue statin (4) Hypertension: Continue lisinopril, MTP added to patient's home regimen History of Present Illness Attending Physician: Chirag Brooks MD History of Present Illness Patient is a 77-year-old male with past medical history of hypertension, hyperlipidemia, and hypothyroidism who presented to the emergency department with complaints of jaw plane, diaphoresis, and nausea. Patient was noted to have ECG changes in route via EMS and heart alert was initiated. On arrival to the emergency department patient was noted to be in second-degree AV block with bradycardia and transient ST elevation. Patient was taken to the Electrical Intern, The patient was found to have 100% stenosis of the RCA and significant stenosis of the LAD. He received 1 VICTOR HUGO to the RCA with plans for future intervention to the LAD. Patient is now admitted to the ICU for further management at this time. On arrival to the ICU the patient is alert and oriented and without acute distress. He is hemodynamically stable and maintaining oxygen saturations on room air. Patient reports previous jaw pain, nausea, and diaphoresis earlier this afternoon which is now subsided. He denies any recent illness, fevers, cough or congestion, headache or dizziness, shortness of breath, chest pain or palpitations, abdominal pain, vomiting or diarrhea, swelling in hands or feet, or changes in gait. Patient denies any previous history of DC or cardiac disease. Allergies Allergy/AdvReac Type Severity Reaction Status Date / Time No Known Allergies Allergy Unknown Verified 11/08/22 21:15 Home Medications Medication Instructions Recorded Confirmed Type biotin 5 mg capsule 5 mg PO DAILY 11/10/19 11/08/22 History cholecalciferol (vitamin D3) 125 125 mcg PO DAILY 11/10/19 11/08/22 History mcg (5,000 unit) capsule krill oil 500 mg capsule 500 mg PO DAILY 02/17/21 11/08/22 History lisinopril 10 mg tablet 10 mg PO DAILY #90 tabs 01/23/22 11/08/22 Rx pravastatin 20 mg tablet 20 mg PO DAILY #90 tabs 01/23/22 11/08/22 Rx levothyroxine 75 mcg tablet 75 mcg PO DAILY #90 tabs 08/03/22 11/08/22 Rx multivitamin 1 tab PO DAILY 11/08/22 11/08/22 History Patient History Medical History Anemia Benign prostatic hyperplasia with urinary obstruction Hyperlipidemia Hypertension Hypothyroidism Nephrolithiasis Non Hodgkin's lymphoma Surgical History History of colonoscopy History of lithotripsy History of lymph node biopsy lymphadenectomy History of repair of rotator cuff History of tonsillectomy Status post biopsy of skin excisional node biopsy left neck area Status post cataract extraction Family History Father , age 70 Stroke syndrome Stroke Mother , age 55 Hypertension Family history of cervical cancer Ovarian cancer Sister Hypertension Aunt Breast cancer Other Cancer Heart disease Denies family history of Prostate cancer Myocardial infarction Lung cancer Colorectal cancer Social History Smoking Status: Never smoker Second Hand Exposure: No; Do You Dip or Chew Tobacco: No; Hx Alcohol Use: No Hx Substance Use: No Preferred Language: Lao Communication Ability: Effective Visual Impairment: Limited Hearing Ability: Normal Program Review Director Required: No Beliefs That Will Affect Care: None marital status: Current Living Situation: Spouse Current Living Situation Comment: home with current occupational status: employed 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 How many Children do You have: 1 Other Information That Helps Us Care for You: No Feels Safe at Home: Yes Safety Concerns: Feels Safe At This Time Childhood Exposure to Second-Hand Smoke: Yes (father smoked ) caffeine: Yes (drinks 2-3 cups coffee daily ) Dental Care, Regularly: Yes Physical Activity Frequency: 5-6 Times per Week Seatbelt Use: always Sunscreen Use: No Assistive Devices: None Review of Systems Review of Systems: All systems reviewed & are unremarkable except as noted in HPI & below Physical Exam Constitutional: cooperative and comfortable; no acute distress Eyes: PERRL, conjunctivae normal, anicteric sclerae ENMT: external ear and nose normal, oropharynx normal Neck: trachea midline, no thyromegaly Respiratory: normal respiratory effort, lungs clear to auscultation Cardiovascular: RRR, no murmur, no edema Heart Sounds: normal S1 and normal S2 Vessels: no JVD Extremities: no edema Gastrointestinal (Abdomen): normal bowel sounds, soft, nontender, no hepatosplenomegaly Musculoskeletal: no cyanosis or clubbing, extremities motor strength 5/5 Skin: no rashes, warm and dry Neurologic: PERRL, EOMI, accommodation nl, no face palsy, no dysarthria Psychiatric: A+Ox3, euthymic affect Results & Data Results & Data Vital Signs (Past 12 Hours) Vital Signs Temp Pulse Resp BP BP Pulse Ox O2 Del Method 11/08/22 21:00 48 L 24 97 11/08/22 21:00 128/60 11/08/22 20:55 44 L 22 98 11/08/22 20:54 120/55 L 11/08/22 20:54 42 L 22 11/08/22 20:50 50 L 21 116/58 L 97 11/08/22 20:53 98 Room Air 11/08/22 20:53 98 Room Air 11/08/22 20:49 51 L 11/08/22 20:47 20 120/55 L 99 Room Air 11/08/22 20:47 36.5 C 43 L 20 98 Room Air 11/08/22 20:47 36.5 C 46 L 20 116/58 L 100 Room Air Coding Level of Care Code 80442 IN/OBS CONSULT LVL 2,35M Diagnoses STEMI (ST elevation myocardial infarction) I21.3 Hypothyroidism E03.9 Hyperlipidemia E78.5 Hypertension I10 Time Spent (min) 35
--- NOTE | 2022-11-09 04:42 | History & Physical Report ---
Date of Service November 09, 2022 The patient was seen and examined on 11/08/2022 Assessment & Plan (1) STEMI (ST elevation myocardial infarction): (2) Hypothyroidism: (3) Non Hodgkin's lymphoma: (4) Hyperlipidemia: (5) Benign prostatic hyperplasia with urinary obstruction: (6) Hypertension: Plan STEMI/hypertension- Heart alert taken to the cardiac catheterization lab with interventions as noted per Dr. Brooks note All cardiology orders per Dr. Brooks Consults to Dr. Winn, administrative support assoc team Hyperlipidemia- If tolerated, will change pravastatin 20 mg daily to high-dose atorvastatin Check a fasting lipid panel Hold krill oil for Hypothyroidism- Continue levothyroxine 75 mcg daily Admission and Anticipated Discharge Date Admission Date: November 08, 2022 History of Present Illness Chief Complaint: The patient presented to the emergency department with complaint of jaw pain that occurred with exertion, with initial EKG showing an acute STEMI, and patient was placed on a heart alert protocol in the ED. The patient has already received aspirin in route, and was immediately started on heparin IV and gave her Plavix 200 mg loading dose Primary Care Provider: Ellis Martell MD The patient is a 77-year-old male with a past medical history including hyperlipidemia, hypertension, hypothyroidism and vitamin D deficiency, who presented to the emergency department with signs and symptoms suggestive of an inferior STEMI. He was placed in a heart alert protocol, and was immediately taken to cardiac catheterization lab by Dr. Chirag Brooks. He was then admitted to the ICU for follow-up care Allergies Allergy/AdvReac Type Severity Reaction Status Date / Time No Known Allergies Allergy Unknown Verified 11/08/22 21:15 Home Medications Medication Instructions Recorded Confirmed Type biotin 5 mg capsule 5 mg PO DAILY 11/10/19 11/08/22 History cholecalciferol (vitamin D3) 125 125 mcg PO DAILY 11/10/19 11/08/22 History mcg (5,000 unit) capsule krill oil 500 mg capsule 500 mg PO DAILY 02/17/21 11/08/22 History lisinopril 10 mg tablet 10 mg PO DAILY #90 tabs 01/23/22 11/08/22 Rx pravastatin 20 mg tablet 20 mg PO DAILY #90 tabs 01/23/22 11/08/22 Rx levothyroxine 75 mcg tablet 75 mcg PO DAILY #90 tabs 08/03/22 11/08/22 Rx multivitamin 1 tab PO DAILY 11/08/22 11/08/22 History Past Med/Surg History Medical History Anemia Benign prostatic hyperplasia with urinary obstruction Hyperlipidemia Hypertension Hypothyroidism Nephrolithiasis Non Hodgkin's lymphoma Surgical History History of colonoscopy History of lithotripsy History of lymph node biopsy lymphadenectomy History of repair of rotator cuff History of tonsillectomy Status post biopsy of skin excisional node biopsy left neck area Status post cataract extraction Family History Father , age 70 Stroke syndrome Stroke Mother , age 55 Hypertension Family history of cervical cancer Ovarian cancer Sister Hypertension Aunt Breast cancer Other Cancer Heart disease Denies family history of Prostate cancer Myocardial infarction Lung cancer Colorectal cancer Social History Smoking Status: Never smoker Second Hand Exposure: No; Do You Dip or Chew Tobacco: No; Hx Alcohol Use: No Hx Substance Use: No Preferred Language: Danish Communication Ability: Effective Visual Impairment: Limited Hearing Ability: Normal [employer] Professional Required: No Beliefs That Will Affect Care: None marital status: Current Living Situation: Spouse Current Living Situation Comment: home with current occupational status: employed 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 [employer] How many Children do You have: 1 Other Information That Helps Us Care for You: No Feels Safe at Home: Yes Safety Concerns: Feels Safe At This Time Childhood Exposure to Second-Hand Smoke: Yes (father smoked ) caffeine: Yes (drinks 2-3 cups coffee daily ) Dental Care, Regularly: Yes Physical Activity Frequency: 5-6 Times per Week Seatbelt Use: always Sunscreen Use: No Assistive Devices: None Review of Systems Review of Systems: The patient denies chest pain, palpitations, cough, lower extremity swelling, sore throat, fevers, chills, sweats, weight change, fatigue, nausea, vomiting, diarrhea , constipation, abdominal pain, pelvic pain, blood in urine or stool, dysuria, urinary frequency or urgency, lightheadedness, dizziness, headache, memory loss, loss of consciousness, rash, abnormal bruising or bleeding, imbalance, focal or generalized weakness, numbness or tingling in arms or legs, generalized arthralgias or myalgias, or night sweats. The review of systems is otherwise negative other than for that already noted above, and at least 10 systems have been reviewed. Physical Exam Physical Exam: The patient is awake, alert and oriented 3, well developed and well nourished, normocephalic and atraumatic, lying in bed and in no acute distress. HEENT--PERRL, EOMI, mucous membranes and oropharynx normal Neck--supple. No JVD. No bruits. Thyroid normal, trachea midline, no adenopathy. Heart--bradycardia, otherwise normal S1 and S2. No murmurs, rubs or gallops. Lungs--clear bilaterally, no respiratory distress, no accessory muscle use. Abdomen--normal bowel sounds and soft. Nontender. Nondistended, no hernias or masses, no organomegaly. Extremities--no cyanosis or clubbing. No edema. There are good distal pulses b/l. Dermatologic--normal skin turgor, normal color, no abnormal lymph nodes, no rash. Neurologic--cranial nerves II through XII grossly intact. Rheumatologic--normal range of motion. Psychiatric--normal affect. Results & Data Results & Data Vital Signs (Past 12 Hours) Vital Signs Temp Pulse Pulse Resp BP BP Pulse Ox 11/09/22 03:30 72 13 99 11/09/22 03:30 123/66 11/09/22 03:15 67 16 100 11/09/22 03:15 131/62 11/09/22 03:00 71 15 99 11/09/22 03:00 114/66 11/09/22 02:45 77 17 99 11/09/22 02:45 127/65 11/09/22 02:30 70 11 L 99 11/09/22 02:30 124/72 11/09/22 02:15 68 15 99 11/09/22 02:15 115/59 L 11/09/22 02:00 69 15 98 11/09/22 02:00 122/64 11/09/22 01:45 75 15 98 11/09/22 01:45 118/61 11/09/22 01:30 80 12 98 11/09/22 01:30 114/65 11/09/22 01:15 71 12 99 11/09/22 01:15 102/60 11/09/22 01:00 71 12 99 11/09/22 01:00 106/53 L 11/09/22 00:45 72 15 98 11/09/22 00:45 107/59 L 11/09/22 00:30 77 14 100 11/09/22 00:30 120/58 L 11/09/22 00:16 89 12 11/09/22 00:16 121/79 11/09/22 00:15 97 H 19 97 11/09/22 00:00 77 14 98 11/09/22 00:00 118/67 11/08/22 23:45 80 21 97 11/08/22 23:45 122/67 11/08/22 23:30 85 14 99 11/08/22 23:30 117/83 11/08/22 23:15 88 17 98 11/08/22 23:15 114/67 11/08/22 23:05 116/69 11/08/22 23:05 91 H 17 99 11/09/22 00:00 99 H 11/08/22 22:38 99 H 11/08/22 23:00 95 H 21 98 11/08/22 23:00 116/66 11/08/22 22:55 121/69 11/08/22 22:55 94 H 22 11/08/22 22:45 102 H 17 96 11/08/22 22:35 98 H 17 97 11/08/22 22:35 120/73 11/08/22 22:34 100 H 18 11/08/22 23:03 36.4 C 96 H 16 116/66 99 11/08/22 22:38 97 H 16 116/66 98 11/08/22 21:00 48 L 24 97 11/08/22 21:00 128/60 11/08/22 20:55 44 L 22 98 11/08/22 20:54 120/55 L 11/08/22 20:54 42 L 22 11/08/22 20:50 50 L 21 116/58 L 97 11/08/22 20:53 98 11/08/22 20:53 98 11/08/22 20:49 51 L 11/08/22 20:47 20 120/55 L 99 11/08/22 20:47 36.5 C 43 L 20 98 11/08/22 20:47 36.5 C 46 L 20 116/58 L 100 O2 Del Method 11/09/22 03:30 11/09/22 03:30 11/09/22 03:15 11/09/22 03:15 11/09/22 03:00 11/09/22 03:00 11/09/22 02:45 11/09/22 02:45 11/09/22 02:30 11/09/22 02:30 11/09/22 02:15 11/09/22 02:15 11/09/22 02:00 11/09/22 02:00 11/09/22 01:45 11/09/22 01:45 11/09/22 01:30 11/09/22 01:30 11/09/22 01:15 11/09/22 01:15 11/09/22 01:00 11/09/22 01:00 11/09/22 00:45 11/09/22 00:45 11/09/22 00:30 11/09/22 00:30 11/09/22 00:16 11/09/22 00:16 11/09/22 00:15 11/09/22 00:00 11/09/22 00:00 11/08/22 23:45 11/08/22 23:45 11/08/22 23:30 11/08/22 23:30 11/08/22 23:15 11/08/22 23:15 11/08/22 23:05 11/08/22 23:05 11/09/22 00:00 11/08/22 22:38 11/08/22 23:00 11/08/22 23:00 11/08/22 22:55 11/08/22 22:55 11/08/22 22:45 11/08/22 22:35 11/08/22 22:35 11/08/22 22:34 11/08/22 23:03 Room Air 11/08/22 22:38 Room Air 11/08/22 21:00 11/08/22 21:00 11/08/22 20:55 11/08/22 20:54 11/08/22 20:54 11/08/22 20:50 11/08/22 20:53 Room Air 11/08/22 20:53 Room Air 11/08/22 20:49 11/08/22 20:47 Room Air 11/08/22 20:47 Room Air 11/08/22 20:47 Room Air Laboratory Results Laboratory Results WBC 7.88 K/ul (4.8-10.8) 11/08/22 20:55 RBC 4.38 M/uL (4.70-6.10) L 11/08/22 20:55 Hgb 12.0 g/dl (14.0-18.0) L 11/08/22 20:55 POC Hgb 12.2 g/dl (14.0-18.0) L 11/08/22 21:02 Hct 36.3 % (42.0-52.0) L 11/08/22 20: POC Hct 36 % (42-52) L 11/08/22 21:02 MCV 82.9 fL (80.0-100.0) 11/08/22 20:55 MCH 27.4 pg (25.0-34.0) 11/08/22 20: MCHC 33.1 g/dL (32.0-36.0) 11/08/22 20:55 RDW Std Deviation 36.0 fL (36.4-46.3) L 11/08/22 20:55 RDW Coeff of John 11.9 % (11.5-14.5) 11/08/22 20:55 Plt Count 239 K/uL (130-400) 11/08/22 20:55 MPV 10.0 fL (9.4-12.4) 11/08/22 20:55 Immature Gran % (Auto) 0.4 % 11/08/22 20:55 Neut % (Auto) 55.8 % 11/08/22 20:55 Lymph % (Auto) 32.4 % 11/08/22 20:55 Foard % (Auto) 7.5 % 11/08/22 20:55 Eos % (Auto) 3.6 % 11/08/22 20:55 Baso % (Auto) 0.3 % 11/08/22 20:55 Neut # (Auto) 4.41 K/uL (1.40-6.50) 11/08/22 20:55 Lymph # (Auto) 2.55 K/uL (1.2-3.4) 11/08/22 20:55 Foard # (Auto) 0.59 K/uL (0.11-0.59) 11/08/22 20:55 Eos # (Auto) 0.28 K/uL (0-0.50) 11/08/22 20:55 Baso # (Auto) 0.02 K/uL (0-0.2) 11/08/22 20:55 Immature Gran # (Auto) 0.03 K/uL (0.01-0.20) 11/08/22 20:55 PT 10.6 Seconds (9.0-12.0) 11/08/22 20:55 INR 1.0 (0.9-1.1) 11/08/22 20:55 APTT 25.6 Seconds (21.0-31.0) 11/08/22 20:55 PTT Ratio 0.9 11/08/22 20:55 Activ Coag Time Kaolin 299 SECONDS (94-140) H 11/08/22 21:53 POC Sodium 139 mmol/L (135-144) 11/08/22 21:02 Sodium 137 mmol/L (136-145) 11/08/22 20:55 POC Potassium 3.7 mmol/L (3.3-5.0) 11/08/22 21:02 Potassium 3.9 mmol/L (3.5-5.1) 11/08/22 20:55 POC Chloride 101 mmol/L (101-112) 11/08/22 21:02 Chloride 104 mmol/L (98-107) 11/08/22 20:55 Carbon Dioxide 28 mmol/L (21-32) 11/08/22 20:55 POC Total CO2 25 mmol/L (24-31) 11/08/22 21:02 Anion Gap 5 (3-11) 11/08/22 20:55 POC Anion Gap 17.0 mmol/L (16-25) 11/08/22 21:02 POC BUN 15 mg/dl (7-18) 11/08/22 21:02 BUN 16 mg/dl (6-23) 11/08/22 20:55 Creatinine 1.12 mg/dl (0.6-1.4) 11/08/22 20:55 POC Creatinine 1.2 mg/dl (0.6-1.3) 11/08/22 21:02 Est Cr Clr Drug Dosing 55.3 ml/min 11/08/22 20:55 Est GFR ( Amer) 72.5 ml/min 11/08/22 20:55 Est GFR (Non-Af Amer) 62.6 ml/min 11/08/22 20:55 BUN/Creatinine Ratio 14.3 (10-20) 11/08/22 20:55 Glucose 172 mg/dl (70-99(Fasting)) H 11/08/22 20:55 POC Glucose (other) 164 mg/dl (70-99) H 11/08/22 21:02 Calcium 9.1 mg/dl (8.6-10.3) 11/08/22 20:55 POC Ioniz Calcium Mandy 1.22 mmol/l (1.12-1.32) 11/08/22 21:02 Magnesium 1.9 mg/dl (1.7-2.4) 11/08/22 20:55 Total Bilirubin 0.3 mg/dl (0.2-1.0) 11/08/22 20:55 AST 15 U/L (13-39) 11/08/22 20:55 ALT 15 U/L (7-52) 11/08/22 20:55 Alkaline Phosphatase 56 U/L (34-104) 11/08/22 20:55 Total Creatine Kinase 71 U/L (30-223) 11/08/22 20:55 Troponin I High Sens 11.7 pg/ml (0-20) 11/08/22 20:55 B-Natriuretic Peptide 23 pg/ml (0-100) 11/08/22 20:55 Total Protein 6.2 gm/dl (6.0-8.3) 11/08/22 20:55 Albumin 4.1 gm/dl (3.4-5.0) 11/08/22 20:55 Globulin 2.1 gm/dl (2.5-4.0) L 11/08/22 20:55 Albumin/Globulin Ratio 2.0 (0.9-2) 11/08/22 20:55 Lipase 31 U/L (11-82) 11/08/22 20:55 TSH 1.583 uIu/ml (0.300-4.500) 11/08/22 20:55 Nasal Screen MRSA (PCR) Negative (Negative) 11/08/22 22:48 SARS-CoV-2, RNA, NAAT NEGATIVE (NEGATIVE) 11/08/22 20:50 Impressions Chest X-Ray 11/08/22 20:53 SINGLE VIEW CHEST CLINICAL HISTORY: Atypical chest pain. FINDINGS: An AP, portable, upright chest radiograph is compared to chest x-ray and chest CT dated 01/08/2016. The cardiomediastinal silhouette is unremarkable. Chronic interstitial thickening is similar to previous. The lungs and pleural s paces are clear. No pneumothorax is seen. The skeletal structures are osteopenic. The bony thorax is grossly intact. IMPRESSION: No active disease in the chest. ACT 112: Negative or not required by law. Electronically signed by: Kevin Jiménez M.D. 11/08/2022 9:17 PM Code Status & VTE Plan Code Status Full code VTE Prophylaxis Plan VTE Prophylaxis will be ordered: Yes PG Care Time/CCT Total # of Minutes Spent Total Time Spent with Patient: Total time spent is greater than 50% in coordination of care (as documented) at patient's floor/unit and/or counseling patient: Coding Level of Care Code 80837 INT INP/OBS CARE 3/75MIN Diagnoses STEMI (ST elevation myocardial infarction) I21.3 Hypothyroidism E03.9 Non Hodgkin's lymphoma C85.90 Hyperlipidemia E78.5 Benign prostatic hyperplasia with urinary obstruction N40.1; N13.8 Hypertension I10
[2022-11-09 05:04] LABS: Calcium 8.6 mg/dl (8.6-10.3); Chol HDL Ratio 4.2 (0-5); Creatinine Clr Calc Pharmacy 60.6 ml/min; Est GFR (African American) 89.6 ml/min; Est GFR (Non-African American) 77.3 ml/min; Magnesium 1.9 mg/dl (1.7-2.4); Phosphorus 3.2 mg/dl (2.5-4.9); Potassium 4.3 mmol/L (3.5-5.1)
[2022-11-09 05:10] LABS: Basophils # (auto) 0.02 K/uL (0-0.2); Basophils % (auto) 0.2 %; Eosinophils # (auto) 0.08 K/uL (0-0.50); Eosinophils % (auto) 0.8 %; Hematocrit (blood only) 35.8 % (42.0-52.0); Hemoglobin 11.7 g/dl (14.0-18.0); Immature Granulocytes # (auto) 0.04 K/uL (0.01-0.20); Immature Granulocytes % (auto) 0.4 %; Lymphocytes # (auto) 1.78 K/uL (1.2-3.4); Lymphocytes % (auto) 18.3 %; Mean Corpuscular Hemoglobin 26.6 pg (25.0-34.0); Mean Corpuscular Hgb Conc 32.7 g/dL (32.0-36.0); Mean Corpuscular Volume 81.4 fL (80.0-100.0); Mean Platelet Volume 10.1 fL (9.4-12.4); Monocytes # (auto) 0.62 K/uL (0.11-0.59); Monocytes % (auto) 6.4 %; Neutrophils # (auto) 7.21 K/uL (1.40-6.50); Neutrophils % (auto) 73.9 %; Platelet Count 223 K/uL (130-400); RDW Coefficient of Variation 11.9 % (11.5-14.5); RDW Standard Deviation 34.9 fL (36.4-46.3); White Blood Count 9.75 K/ul (4.8-10.8)
--- NOTE | 2022-11-09 07:26 | Critical Care Progress Note ---
Date of Service November 09, 2022 Assessment & Plan (1) STEMI (ST elevation myocardial infarction): (2) Hypothyroidism: (3) Hyperlipidemia: (4) Hypertension: Plan -- STEMI Inferior ST elevation on EKG on initial presentation Status post PCI with VICTOR HUGO x1 to the RCA. No further ST elevation on repeat EKG. NSR on monitor. Future plan for patient to undergo additional stent to the LAD. -Trend troponin for peak - Continue ASA, Brilinta, MTP, lisinopril, Statin -Heart healthy diet -- HTN Continue lisinopril, MTP added to patient's home regimen -- DLP continue statin -- Hypothyroidism Continue Synthroid TSH 1.58 -- Prophylaxis VTE: IPC GI: Pantoprazole Lines: Peripheral Diet: NPO Plan: In/Out: + 1 L. No good urine measurement Trops in the 34K post cath. Will discuss with cardiology regarding plans of another cath for LAD disease. Keep NPO for the time being. Trend EKG and troponin Please note the above document was generated using voice recognition software. It may contain grammatical, syntax or spelling errors.Any formal questions or concerns about the content, text or information contained within the body of this dictation should be directly addressed to the provider for clarification. Admission and Anticipated Discharge Date Admission Date: November 08, 2022 Subjective Patient seen and examined at bedside. NAD Feeling better. No CP, No SOB, No DALE or dizziness. Sinus rhythm on the monitor. Saturating well on RA. No N or V. Review of Systems Review of Systems: All systems reviewed & are unremarkable except as noted in Subjective Physical Exam Physical Exam: Constitutional: No acute distress HEENT: EOMI, PERRLA Respiratory system: Good air entry bilaterally, no wheeze, no rhonchi, no crackles CVS: S1-S2 positive, no murmurs or gallops Abdomen: Soft, nontender, nondistended, positive bowel sounds x4 Extremities: +2 pulses bilaterally radialis/ dorsalis pedis, no cyanosis, no edema Neuro: Awake alert oriented x3 Psych: Normal mood and affect G/U: No Brunson Skin: no rashes, warm and dry Lymphatic: no cervical or axillary lymphadenopathy Results & Data Results & Data Vital Signs (Past 12 Hours) Vital Signs Temp Pulse Pulse Resp BP BP Pulse Ox 11/09/22 06:15 130/63 11/09/22 06:15 66 18 99 11/09/22 06:00 70 22 100 11/09/22 06:00 135/72 11/09/22 05:30 86 13 11/09/22 05:15 130/68 11/09/22 05:15 79 20 99 11/09/22 05:00 66 18 98 11/09/22 05:00 123/67 11/09/22 04:45 66 16 98 11/09/22 04:45 121/65 11/09/22 04:30 70 18 100 11/09/22 04:30 127/67 11/09/22 04:15 79 14 98 11/09/22 04:15 124/69 11/09/22 04:00 76 21 100 11/09/22 04:00 123/73 11/09/22 03:45 131/72 11/09/22 03:45 73 15 99 11/09/22 03:30 72 13 99 11/09/22 03:30 123/66 11/09/22 03:15 67 16 100 11/09/22 03:15 131/62 11/09/22 03:00 71 15 99 11/09/22 03:00 114/66 11/09/22 02:45 77 17 99 11/09/22 02:45 127/65 11/09/22 02:30 70 11 L 99 11/09/22 02:30 124/72 11/09/22 02:15 68 15 99 11/09/22 02:15 115/59 L 11/09/22 02:00 69 15 98 11/09/22 02:00 122/64 11/09/22 01:45 75 15 98 11/09/22 01:45 118/61 11/09/22 01:30 80 12 98 11/09/22 01:30 114/65 11/09/22 01:15 71 12 99 11/09/22 01:15 102/60 11/09/22 01:00 71 12 99 11/09/22 01:00 106/53 L 11/09/22 00:45 72 15 98 11/09/22 00:45 107/59 L 11/09/22 00:30 77 14 100 11/09/22 00:30 120/58 L 11/09/22 00:16 89 12 11/09/22 00:16 121/79 0413/23 00:15 97 H 19 97 11/09/22 00:00 77 14 98 11/09/22 00:00 118/67 11/08/22 23:45 80 21 97 11/08/22 23:45 122/67 11/08/22 23:30 85 14 99 11/08/22 23:30 117/83 11/08/22 23:15 88 17 98 11/08/22 23:15 114/67 11/08/22 23:05 116/69 11/08/22 23:05 91 H 17 99 11/09/22 00:00 99 H 11/08/22 22:38 99 H 11/08/22 23:00 95 H 21 98 11/08/22 23:00 116/66 11/08/22 22:55 121/69 11/08/22 22:55 94 H 22 11/08/22 22:45 102 H 17 96 11/08/22 22:35 98 H 17 97 11/08/22 22:35 120/73 11/08/22 22:34 100 H 18 11/08/22 23:03 36.4 C 96 H 16 116/66 99 11/08/22 22:38 97 H 16 116/66 98 11/08/22 21:00 48 L 24 97 11/08/22 21:00 128/60 11/08/22 20:55 44 L 22 98 11/08/22 20:54 120/55 L 11/08/22 20:54 42 L 22 11/08/22 20:50 50 L 21 116/58 L 97 11/08/22 20:53 98 11/08/22 20:53 98 11/08/22 20:49 51 L 11/08/22 20:47 20 120/55 L 99 11/08/22 20:47 36.5 C 43 L 20 98 11/08/22 20:47 36.5 C 46 L 20 116/58 L 100 O2 Del Method 11/09/22 06:15 11/09/22 06:15 11/09/22 06:00 11/09/22 06:00 11/09/22 05:30 11/09/22 05:15 11/09/22 05:15 11/09/22 05:00 11/09/22 05:00 11/09/22 04:45 11/09/22 04:45 11/09/22 04:30 11/09/22 04:30 11/09/22 04:15 11/09/22 04:15 11/09/22 04:00 11/09/22 04:00 11/09/22 03:45 11/09/22 03:45 11/09/22 03:30 11/09/22 03:30 11/09/22 03:15 11/09/22 03:15 11/09/22 03:00 11/09/22 03:00 11/09/22 02:45 11/09/22 02:45 11/09/22 02:30 11/09/22 02:30 11/09/22 02:15 11/09/22 02:15 11/09/22 02:00 11/09/22 02:00 11/09/22 01:45 11/09/22 01:45 11/09/22 01:30 11/09/22 01:30 11/09/22 01:15 11/09/22 01:15 11/09/22 01:00 11/09/22 01:00 11/09/22 00:45 11/09/22 00:45 11/09/22 00:30 11/09/22 00:30 11/09/22 00:16 11/09/22 00:16 11/09/22 00:15 11/09/22 00:00 11/09/22 00:00 11/08/22 23:45 11/08/22 23:45 11/08/22 23:30 11/08/22 23:30 11/08/22 23:15 11/08/22 23:15 11/08/22 23:05 11/08/22 23:05 11/09/22 00:00 11/08/22 22:38 11/08/22 23:00 11/08/22 23:00 11/08/22 22:55 11/08/22 22:55 11/08/22 22:45 11/08/22 22:35 11/08/22 22:35 11/08/22 22:34 11/08/22 23:03 Room Air 11/08/22 22:38 Room Air 11/08/22 21:00 11/08/22 21:00 11/08/22 20:55 11/08/22 20:54 11/08/22 20:54 11/08/22 20:50 11/08/22 20:53 Room Air 11/08/22 20:53 Room Air 11/08/22 20:49 11/08/22 20:47 Room Air 11/08/22 20:47 Room Air 11/08/22 20:47 Room Air Laboratory Results 11/09/22 04:36 11/09/22 04:36 Coding Level of Care Code 17966 SUB INP/OBS CARE 3/50MIN Diagnoses STEMI (ST elevation myocardial infarction) I21.3 Hypothyroidism E03.9 Hyperlipidemia E78.5 Hypertension I10
[2022-11-09] MEDS: ICU Protocol for HYPERglycemia SCH ×4 (07:32→20:38)
[2022-11-09] MEDS ORDERED: TICAGRELOR 90 MG TAB PO ONE (09:00)
[2022-11-09] MEDS: PANTOprazole 40 MG TAB PO SCH (09:02)
[2022-11-09] MEDS: ASPIRIN 81 MG ECTAB PO SCH (09:02)
[2022-11-09] MEDS: lisinopril 5 MG TAB PO SCH (09:02)
[2022-11-09] MEDS: METOPROLOL TARTRATE 25 MG TAB PO SCH ×2 (09:02→20:23)
[2022-11-09] MEDS: ATORVASTATIN 40 MG TAB PO SCH (09:02)
[2022-11-09 09:37] LABS: Estimated Average Glucose 128 mg/dl; Hemoglobin A1C 6.1 % (4.5-5.6)
[2022-11-09] MEDS: LEVOTHYROXINE SODIUM 75 MCG TABLET PO SCH (10:47)
--- NOTE | 2022-11-09 11:38 | Cardiology Progress Note ---
Date of Service November 09, 2022 Assessment & Plan (1) STEMI (ST elevation myocardial infarction): Plan: Post PCI with VICTOR HUGO to mid RCA 2. Severe nonculprit artery CAD90% LAD, 95% small distal circumflex 3. Preserved LV functionEF 50% with inferior wall motion abnormality 4. Mild MR, mild AI 5. Anemia 6. Dyslipidemia 7. Hypertension Patient chest pain-free. Hemodynamically and electrically stable. Overall LV function preserved on echo. No signs of heart failure. No access site complications. Discussion today with patient and family regarding revascularization options. We talked about staged PCI of LAD/circumflex versus outpatient referral for C ABG. We discussed risk, benefits of both approaches. At this point preference is for PCI. In nondiabetic with preserved LV function feel this is reasonable approach. Tentatively plan on staged PCI tomorrow morning. -- Trend trop until peak Continue DAPT with aspirin, ticagrelor Continue current RONALD, beta-heena. Continue statin From a cardiac standpoint okay to transition to telemetry today. NPO past midnight. Admission and Anticipated Discharge Date Admission Date: November 08, 2022 Subjective Feeling well this morning. No additional chest, neck/jaw pain. Telemetry reviewedno events Review of Systems Review of Systems: All systems reviewed & are unremarkable except as noted in HPI & below Physical Exam Physical Exam: General: Comfortable HEENT: Sclerae anicteric Lungs: Clear anteriorly Cardiac: Regular Vascular: 2+ radial Abdomen: Soft, nontender Extremities: Well perfused, no peripheral edema Neuro: Nonfocal Psych: Alert orient x3, normal affect and mood Results & Data Vital Signs (Past 12 Hours) Vital Signs Temp Pulse Resp BP Pulse Ox O2 Del Method 11/09/22 11:29 98.6 F 11/09/22 09:00 63 18 100 11/09/22 09:00 118/59 L 11/09/22 08:45 120/57 L 11/09/22 08:45 64 15 99 11/09/22 08:30 65 27 H 99 11/09/22 08:30 127/61 11/09/22 08:15 69 16 99 11/09/22 08:15 132/65 11/09/22 08:00 71 15 98 11/09/22 08:00 140/68 11/09/22 07:45 127/58 L 11/09/22 07:45 68 19 98 Room Air 11/09/22 07:30 66 18 98 11/09/22 07:30 122/61 11/09/22 07:15 68 22 98 11/09/22 07:15 128/65 11/09/22 07:00 77 20 98 11/09/22 07:00 124/73 11/09/22 06:15 130/63 11/09/22 06:15 66 18 99 11/09/22 06:00 70 22 100 11/09/22 06:00 135/72 11/09/22 05:30 86 13 11/09/22 05:15 130/68 11/09/22 05:15 79 20 99 11/09/22 05:00 66 18 98 11/09/22 05:00 123/67 11/09/22 04:45 66 16 98 11/09/22 04:45 121/65 11/09/22 04:30 70 18 100 11/09/22 04:30 127/67 11/09/22 04:15 79 14 98 11/09/22 04:15 124/69 11/09/22 04:00 76 21 100 11/09/22 04:00 123/73 11/09/22 03:45 131/72 11/09/22 03:45 73 15 99 11/09/22 03:30 72 13 99 11/09/22 03:30 123/66 11/09/22 03:15 67 16 100 11/09/22 03:15 131/62 11/09/22 03:00 71 15 99 11/09/22 03:00 114/66 11/09/22 02:45 77 17 99 11/09/22 02:45 127/65 11/09/22 02:30 70 11 L 99 11/09/22 02:30 124/72 11/09/22 02:15 68 15 99 11/09/22 02:15 115/59 L 11/09/22 02:00 69 15 98 11/09/22 02:00 122/64 11/09/22 01:45 75 15 98 11/09/22 01:45 118/61 11/09/22 01:30 80 12 98 11/09/22 01:30 114/65 11/09/22 01:15 71 12 99 11/09/22 01:15 102/60 11/09/22 01:00 71 12 99 11/09/22 01:00 106/53 L 11/09/22 00:45 72 15 98 11/09/22 00:45 107/59 L 11/09/22 00:30 77 14 100 11/09/22 00:30 120/58 L 11/09/22 00:16 89 12 11/09/22 00:16 121/79 11/09/22 00:15 97 H 19 97 11/09/22 00:00 77 14 98 11/09/22 00:00 118/67 11/08/22 23:45 80 21 97 11/08/22 23:45 122/67 11/08/22 23:30 85 14 99 11/08/22 23:30 117/83 11/09/22 00:00 99 H PG Care Time/CCT Total # of Minutes Spent Total Time Spent with Patient: Total time spent is greater than 50% in coordination of care (as documented) at patient's floor/unit and/or counseling patient: Coding Level of Care Code 01529 SUB INP/OBS CARE 3/50MIN Diagnoses STEMI (ST elevation myocardial infarction) I21.3
--- NOTE | 2022-11-09 17:56 | XCELERA ---
[id number] \\[id number]\[id number]
[2022-11-09] MEDS: TICAGRELOR 90 MG TAB PO SCH (20:23)
[2022-11-10] MEDS: LEVOTHYROXINE SODIUM 75 MCG TABLET PO SCH (06:31)
[2022-11-10] MEDS: ICU Protocol for HYPERglycemia SCH ×3 (07:53→18:18)
[2022-11-10 08:25] LABS: Basophils # (auto) 0.02 K/uL (0-0.2); Basophils % (auto) 0.3 %; Eosinophils # (auto) 0.18 K/uL (0-0.50); Eosinophils % (auto) 2.6 %; Hematocrit (blood only) 35.5 % (42.0-52.0); Immature Granulocytes # (auto) 0.02 K/uL (0.01-0.20); Immature Granulocytes % (auto) 0.3 %; Lymphocytes # (auto) 1.44 K/uL (1.2-3.4); Lymphocytes % (auto) 20.5 %; Mean Corpuscular Hemoglobin 26.8 pg (25.0-34.0); Mean Corpuscular Hgb Conc 33.8 g/dL (32.0-36.0); Mean Corpuscular Volume 79.2 fL (80.0-100.0); Monocytes % (auto) 8.5 %; Neutrophils # (auto) 4.78 K/uL (1.40-6.50); Neutrophils % (auto) 67.8 %; Platelet Count 205 K/uL (130-400); RDW Coefficient of Variation 11.8 % (11.5-14.5); RDW Standard Deviation 33.8 fL (36.4-46.3); Red Blood Count 4.48 M/uL (4.70-6.10); White Blood Count 7.04 K/ul (4.8-10.8)
[2022-11-10 08:41] LABS: BUN Creatinine Ratio 14.3 (10-20); Calcium 8.8 mg/dl (8.6-10.3); Creatinine Clr Calc Pharmacy 54.3 ml/min; Est GFR (African American) 85.2 ml/min; Est GFR (Non-African American) 73.6 ml/min
[2022-11-10] MEDS: PANTOprazole 40 MG TAB PO SCH (08:49)
[2022-11-10] MEDS: lisinopril 5 MG TAB PO SCH (08:49)
[2022-11-10] MEDS: ATORVASTATIN 40 MG TAB PO SCH (08:50)
[2022-11-10] MEDS: TICAGRELOR 90 MG TAB PO SCH ×2 (08:50→21:04)
[2022-11-10] MEDS: METOPROLOL TARTRATE 25 MG TAB PO SCH ×2 (08:50→20:43)
[2022-11-10] MEDS: ASPIRIN 81 MG ECTAB PO SCH (08:50)
[2022-11-10] MEDS ORDERED: SODIUM CHLORIDE 0.9% 1000ML 1,000 ML IV SCH (10:30)
[2022-11-10 11:06] LABS: Ferritin 135.8 ng/ml (8-388)
[2022-11-10 11:10] LABS: Vitamin B12 > 1500 pg/ml (180-914)
[2022-11-10] MEDS ORDERED: niCARdipine HCL INJ 2.5 MG/ML 10 ML AMP ONE (11:24)
[2022-11-10] MEDS ORDERED: HEPARIN (PORCINE) 1000 UNIT/ML 10 ML (CATH LAB USE ONLY) ONE (11:24)
[2022-11-10] MEDS ORDERED: MIDAZOLAM HCL 1 MG/ML 2ML VIAL ONE (11:25)
[2022-11-10] MEDS ORDERED: fentaNYL citrate PF 100 MCG/2 ML VIAL ONE (11:25)
[2022-11-10] MEDS ORDERED: NITROGLYCERIN/D5W 100MCG/ML 20ML SYR ONE ×2 (11:25→12:13)
--- NOTE | 2022-11-10 12:54 | Post Anesthesia Assessment ---
Date of Service November 10, 2022 Post Sedation Assessment Vital Signs Temp Pulse Pulse Resp BP BP BP 11/10/22 08:00 69 11/10/22 07:00 98.2 F 65 20 127/55 L 11/10/22 03:07 98.6 F 71 20 113/66 11/09/22 22:54 98.8 F 67 18 106/55 L 11/09/22 19:32 97.9 F 62 20 128/66 11/09/22 15:18 67 11/09/22 15:00 97.9 F 68 18 134/69 11/09/22 14:00 63 19 11/09/22 14:00 120/60 11/09/22 13:00 60 21 11/09/22 13:00 119/58 L Pulse Ox O2 Del Method 11/10/22 08:00 11/10/22 07:00 97 Room Air 11/10/22 03:07 97 Room Air 11/09/22 22:54 95 Room Air 11/09/22 19:32 95 Room Air 11/09/22 15:18 11/09/22 15:00 96 Room Air 11/09/22 14:00 99 Room Air 11/09/22 14:00 11/09/22 13:00 97 11/09/22 13:00 Recovery Score Activity: Moves 4 extremities Respiration: Deep Breath/Cough Circulation: +/-20% PreAnes Value Consciousness: Fully Awake Oxygen Saturation: O2 needed for >90% Discharge Sedation Level of Care: Fast Track Phase II Post Sedation Plan On clinical assessment, the patient appears to have tolerated the sedation without complications. Patient is recovering as anticipated. Patient will continue to be monitored by nursing and may be discharged when sedation discharge criteria are met per below protocol. Upon Completions of procedure up to 15 minutes continue every 5 minute vital signs and the P.A.R. score; then discharge to a Phase I or Fast Track to Phase II per the following guidelines: * Discharge Patient to appropriate Phase II area if PAR is 8 or greater or return to pre- procedure baseline. The post - procedure orders will be as directed. * If PAR score is less than 8 or not return to pre-procedure baseline then patient will follow Phase I monitoring till PAR is reached for Phase II. The Phase I may be done in procedure room or may call to secure a Phase I area. * If naloxone or flumazenil are used for reversal, hold in Phase I for continued monitoring from when last reversal dose was given for a minimum of 60 minutes or longer pending the nurse and/or physician discretion of patient condition before discharge to Phase II. Please call the Sedation Physician to re-evaluate and complete post-note for discharge to Phase II area. Do NOT discharge from procedure sedation or Phase 1 until post- sedation evaluation note is complete by procedure /sedation MD Sedation Discharge Instructions to be given to the patient at discharge to home.
--- NOTE | 2022-11-10 13:16 | Cardiac Catheterization ---
[facility] Data: Guest Experience Captain Cardiac Status Clinical evaluation leading to the procedure CAD Presenation: STEMI Diagnostic Physicians Name: Chirag Brooks MD Closure Device Recommendations: PCI without planned CABG Cardiac Cath Procedure Full Procedure Date November 10, 2022 Pre-Procedure Diagnosis Pre-Procedure Diagnosis: CAD AUC Score AUC Score: 7 Post-Procedure Diagnosis Post-Procedure Diagnosis: Severe CAD and Normal Intracardiac Pressures Procedure(s) Performed Procedure(s) Performed: Coronary Angiography, Left Heart Cath, Drug Eluting Stent and IVUS Dental Treatment Coordinator Chirag Brooks MD Principal Developer(s) Vonnie Estimated Blood Loss Estimated Blood Loss: 10 Medication(s) Medication(s): Fentanyl, Heparin, Lidocaine 1%, Nicardipine, Nitroglycerin and Versed Summary of Findings Indication: Coronary artery disease - Previously underwent Primary PCI of mid RCA with single VICTOR HUGO for Inferior MO 11/08/2022. Here today for further evaluation of LMCA and consideration of staged PCI. Access: 6 Fr right radial artery Catheters: EBU 3.5 guide, pigtail Findings: LM -normal caliber, 40-50% distal (IVUS - calcified distal segment at bifurcation with 55-60% stenosis (MLA 4.9 mm2) LAD -medium caliber vessel, 90% ostial, angulated proximal segment with diffuse 70 to 80% extending into mid segment. Remainder of vessel without significant disease. Small to medium D1 40% ostial Circumflex -medium caliber, 30% ostial, 30% proximal stenosis, 95% focal mid segment. OM1, left PLB without significant disease. RCA -Not visualized. LVEDP - 5 -- IVUS of LM -- Antithrombotic therapy: Heparin Procedure: Left main cannulated with EBU 3.5 guide Speech And Hearing Director 50 wire navigated into OM 1 Perkins IVUS catheter placed to proximal circumflex Pullback revealed 20-30% ostial stenosis and calcified distal circumflex at bifurcation (MLA 4.9 mm). Eccentric mild calcium in proximal aspect of left main. Wire and catheter removed, no apparent complications. Arterial Closure: TR band Summary: 1. Multivessel coronary artery disease Calcified, moderate to severe distal left main disease (55-60%, MLA 4.9 mm by IVUS). -90% ostial/75% proximal to mid LAD Focal 95% mid circumflex 2. Normal intracardiac filling pressure Recommendations: With calcified, distal left main disease recommend outpatient CABG evaluation. In the interim continue DAPT and current ASCVD risk factor modification. Hemodynamics Rest Ao:: 129/75/99 Final Ao: 122/69/93 LV: 104/5 Recommendations Recommendations: PCI without planned CABG Specimens Specimens: None Radiation Exposure (mGy) 398 Contrast (mls) 30 Anesthesia Moderate [id number] Procedural Complication(s) None Disposition PCU I attest to the content of the Intraoperative Record and any orders documented therein. Any exceptions are noted below. [facility] Card Cath Procedure Codes Cardiac Catheterization Procedure 1: Cardiovascular Cath Procedures: 79027 Left Heart Cath (+/-LV) Therapeutic Services & Ancillary Procedure 1: Cardiovascular Tx and Anc Procedures: 44715 IV Ultrasound (Coronary or Graft) Moderate Sedation Procedure 1: Sedation/Anesthesia: 62305 Mod Sedation by the same physician;Init15 Min Child Age 5 & Up PG Care Time/CCT Total # of Minutes Spent Total Time Spent with Patient: Total time spent is greater than 50% in coordination of care (as documented) at patient's floor/unit and/or counseling patient:
--- NOTE | 2022-11-10 13:35 | Cardiology Progress Note ---
Date of Service November 10, 2022 Assessment & Plan (1) STEMI (ST elevation myocardial infarction): Plan: Post PCI with VICTOR HUGO to mid RCA 2. Severe nonculprit artery CAD90% LAD, 95% small distal circumflex --> 50% calcified distal LM 3. Preserved LV functionEF 50% with inferior wall motion abnormality 4. Mild MR, mild AI 5. Anemia 6. Dyslipidemia 7. Hypertension Patient underwent repeat coronary angiography today with IVUS of left main. He has calcified moderate to severe distal left main disease in addition to his ostial/proximal LAD and circumflex disease. With left main disease staged PCI deferred and recommend outpatient evaluation for CABG. Him and his family will discuss options, considering [facility]. In the interim continue to monitor today and overnight. Likely home tomorrow. Continue DAPT with aspirin, ticagrelor Increase metoprolol to 25 mg twice daily. Home on Toprol XL 50 mg Continue current lisinopril, statin. Admission and Anticipated Discharge Date Admission Date: November 08, 2022 Subjective Feeling well this morning. No additional chest, neck/jaw pain. Telemetry reviewedno events Review of Systems Review of Systems: All systems reviewed & are unremarkable except as noted in HPI & below Physical Exam Physical Exam: General: Comfortable HEENT: Sclerae anicteric Lungs: Clear anteriorly Cardiac: Regular Vascular: 2+ radial Abdomen: Soft, nontender Extremities: Well perfused, no peripheral edema Neuro: Nonfocal Psych: Alert orient x3, normal affect and mood Results & Data Vital Signs (Past 12 Hours) Vital Signs Temp Pulse Pulse Resp BP BP Pulse Ox 11/10/22 13:08 97.9 F 72 20 138/74 97 11/10/22 08:00 69 11/10/22 07:00 98.2 F 65 20 127/55 L 97 11/10/22 03:07 98.6 F 71 20 113/66 97 O2 Del Method 11/10/22 13:08 Room Air 11/10/22 08:00 11/10/22 07:00 Room Air 11/10/22 03:07 Room Air PG Care Time/CCT Total # of Minutes Spent Total Time Spent with Patient: Total time spent is greater than 50% in coordination of care (as documented) at patient's floor/unit and/or counseling patient: Coding Level of Care Code 61395 SUB INP/OBS CARE 3/50MIN Diagnoses STEMI (ST elevation myocardial infarction) I21.3
--- NOTE | 2022-11-10 19:15 | Electrocardiogram Report ---
Test Reason : Blood Pressure : / mmHG Vent. Rate : 047 BPM Atrial Rate : 075 BPM P-R Int : 000 ms QRS Dur : 092 ms QT Int : 426 ms P-R-T Axes : 027 045 089 degrees QTc Int : 377 ms Poor data quality, interpretation may be adversely affected Sinus rhythm with 2nd degree A-V block (Mobitz I) Abnormal ECG When compared with ECG of 08-JAN-2016 11:37, Sinus rhythm is now with 2nd degree A-V block (Mobitz I) Vent. rate has decreased BY [address] now depressed in Anterolateral leads T wave inversion now evident in Anterolateral leads Confirmed by Tayo Edgar ([id number]) on 11/10/2022 7:14:59 PM Referred By: REFERRED SELF Confirmed By:Tayo Edgar
--- NOTE | 2022-11-10 19:17 | Electrocardiogram Report ---
Test Reason : Blood Pressure : / mmHG Vent. Rate : 096 BPM Atrial Rate : 096 BPM P-R Int : 188 ms QRS Dur : 092 ms QT Int : 366 ms P-R-T Axes : 044 030 069 degrees QTc Int : 462 ms Normal sinus rhythm Nonspecific ST abnormality Abnormal ECG When compared with ECG of 08-NOV-2022 20:50, Sinus rhythm is no longer with 2nd degree A-V block (Mobitz I) Vent. rate has increased BY 49 BPM T wave inversion no longer evident in Anterolateral leads Confirmed by Tayo Edgar ([id number]) on 11/10/2022 7:17:28 PM Referred By: REFERRED SELF Confirmed By:Tayo Edgar
[2022-11-10] MEDS ORDERED: Nursing to Pharmacy Communication SCH (19:45)
--- NOTE | 2022-11-10 21:36 | Electrocardiogram Report ---
Test Reason : Blood Pressure : / mmHG Vent. Rate : 065 BPM Atrial Rate : 065 BPM P-R Int : 168 ms QRS Dur : 092 ms QT Int : 390 ms P-R-T Axes : 061 020 060 degrees QTc Int : 405 ms Sinus rhythm with Premature atrial complexes Otherwise normal ECG When compared with ECG of 08-NOV-2022 22:37, Premature atrial complexes are now Present ST no longer depressed in Anterior leads QT has shortened Confirmed by Tayo Edgar ([id number]) on 11/10/2022 9:35:53 PM Referred By: REFERRED SELF Confirmed By:Tayo Edgar
--- NOTE | 2022-11-10 22:30 | Hospitalist Progress Note ---
Date of Service November 10, 2022 Assessment & Plan (1) STEMI (ST elevation myocardial infarction): Plan: presented with inferior STEMI 2nd to 100% occluded RCA s/p heart cath late PM of 11/08/22 with VICTOR HUGO x 1 to the RCA started on Brilenta 90mg BID, asa 81mg daily, lipitor 80mg daily, metoprolol tartrate 12.5mg BID lisinopril dose reduced from 10mg/day to 5mg/day to allow a little more BP room for the metoprolol see #2 below re: today's cath (2) CAD (coronary artery disease): Plan: s/p heart cath 11/08 with occluded RCA s/p VICTOR HUGO x 1 s/p heart cath today to reassess his LAD & L Cx lesions --> Severe nonculprit artery CAD with 90% LAD, 95% small distal circumflex, and 50% calcified distal LM due to Left Main disease Dr Brooks advising referral for consideration of CABG cont meds as listed in #1 above (3) Hypertension: Plan: controlled (4) Hypothyroidism: Plan: TSH 1.5 cont synthroid (5) Non Hodgkin's lymphoma: Plan: initial dx - 2010 treated with Rituxan in remission last office visit with [facility] - 06/2022 (6) Hyperlipidemia: Plan: pravastatin changed to high-dose lipitor 80mg daily lipid parameters - HDL - 39 LDL - 81 trigs - 225 (7) Benign prostatic hyperplasia with urinary obstruction: Plan: not on meds for such (8) Microcytic anemia: Plan: Iron studies wnl Heme/onc documentation from [facility] from late 2021 reference the microcytic anemia and states this is chronic and "not due to Fe deficiency" suspect he has thalaseemia I asked him if he was ever told he had such and he is not aware of having thalaseemia either way the H/H are acceptable (9) Hyponatremia: Plan: Na 134 today this issue is chronic dating back several years low-grade SIADH? reset osmostat? other? not on meds that would cause such simply cont usual surveillance for stability Plan updated at bedside hopefully home tomorrow on 11/11 care d/w Dr Brooks Admission and Anticipated Discharge Date Admission Date: November 08, 2022 Subjective telemetry overnight wnl I saw patient post-cath #2 today he is aware of findings and the recommendation from Dr Brooks for outpatient eval for potential CABG he is resting comfortably denies any chest pain, dyspnea or orthopnea some minor bleeding from his right radial artery with TR band in place at bedside Review of Systems Review of Systems: gen - feels well, eating normally cv - no orthopnea; no chest pain pulm - no FOOTE GI - no abd pain/nausea/emesis Physical Exam Physical Exam: gen - NAD, pleasant, laying flat in bed comfortably neck - no JVD mouth - MMM heart - RRR, s1 s2, no murmur lungs - CTA B/l abd - soft NT ND BS+ ext - no edema, foot pulses 2+ b/l vascular - right radial region - TR band in place, still minor bleeding from artery -- nursing made aware and adjustments to band made psych - a/o x 3 Results & Data Results & Data Vital Signs (Past 12 Hours) Vital Signs Temp Pulse Pulse Resp BP Pulse Ox O2 Del Method 11/10/22 19:19 36.6 C 73 18 120/66 96 Room Air 11/10/22 17:20 36.6 C 77 18 133/75 98 Room Air 11/10/22 16:16 36.7 C 71 18 125/71 98 Room Air 11/10/22 15:50 36.4 C L 73 18 110/68 95 Room Air 11/10/22 15:11 37.1 C 68 18 122/78 97 Room Air 11/10/22 15:21 80 11/10/22 14:30 74 18 118/65 11/10/22 14:11 36.8 C 71 16 138/76 94 Room Air 11/10/22 13:47 76 18 156/80 H 97 Room Air 11/10/22 13:25 65 18 142/72 H 98 Room Air 11/10/22 13:08 36.6 C 72 20 138/74 97 Room Air Laboratory Results Laboratory Results - last 24 hr 11/10/22 11/10/22 11/10/22 08:01 08:01 09:59 WBC 7.04 RBC 4.48 L Hgb 12.0 L Hct 35.5 L MCV 79.2 L MCH 26.8 MCHC 33.8 RDW Std Deviation 33.8 L RDW Coeff of John 11.8 Plt Count 205 MPV 10.0 Immature Gran % (Auto) 0.3 Neut % (Auto) 67.8 Lymph % (Auto) 20.5 [place] % (Auto) 8.5 Eos % (Auto) 2.6 Baso % (Auto) 0.3 Neut # (Auto) 4.78 Lymph # (Auto) 1.44 [place] # (Auto) 0.60 H Eos # (Auto) 0.18 Baso # (Auto) 0.02 Immature Gran # (Auto) 0.02 Sodium 134 L Potassium 4.0 Chloride 103 Carbon Dioxide 25 Anion Gap 6 BUN 14 Creatinine 0.98 Est Cr Clr Drug Dosing 54.3 Est GFR ( Amer) 85.2 Est GFR (Non-Af Amer) 73.6 BUN/Creatinine Ratio 14.3 Glucose 101 H Calcium 8.8 Iron 101 TIBC 257 Unsaturated IBC 156 Transferrin % Sat 39 Ferritin 135.8 Vitamin B12 Folate 11/10/22 09:59 WBC RBC Hgb Hct MCV MCH MCHC RDW Std Deviation RDW Coeff of John Plt Count MPV Immature Gran % (Auto) Neut % (Auto) Lymph % (Auto) [place] % (Auto) Eos % (Auto) Baso % (Auto) Neut # (Auto) Lymph # (Auto) [place] # (Auto) Eos # (Auto) Baso # (Auto) Immature Gran # (Auto) Sodium Potassium Chloride Carbon Dioxide Anion Gap BUN Creatinine Est Cr Clr Drug Dosing Est GFR ( Amer) Est GFR (Non-Af Amer) BUN/Creatinine Ratio Glucose Calcium Iron TIBC Unsaturated IBC Transferrin % Sat Ferritin Vitamin B12 > 1500 H Folate > 22.30 PG Care Time/CCT Total # of Minutes Spent Total Time Spent with Patient: Total time spent is greater than 50% in coordination of care (as documented) at patient's floor/unit and/or counseling patient: Coding Level of Care Code 31519 SUB INP/OBS CARE 235MIN Diagnoses STEMI (ST elevation myocardial infarction) I21.3 CAD (coronary artery disease) I25.10 Hypertension I10 Hypothyroidism E03.9 Non Hodgkin's lymphoma C85.90 Hyperlipidemia E78.5 Benign prostatic hyperplasia with urinary obstruction N40.1; N13.8 Microcytic anemia D50.9 Hyponatremia E87.1
[2022-11-11] MEDS: LEVOTHYROXINE SODIUM 75 MCG TABLET PO SCH (06:40)
[2022-11-11 07:40] LABS: Hematocrit (blood only) 34.6 % (42.0-52.0); Hemoglobin 11.8 g/dl (14.0-18.0); Mean Corpuscular Hemoglobin 26.7 pg (25.0-34.0); Mean Corpuscular Hgb Conc 34.1 g/dL (32.0-36.0); Mean Corpuscular Volume 78.3 fL (80.0-100.0); Mean Platelet Volume 9.8 fL (9.4-12.4); Platelet Count 195 K/uL (130-400); RDW Coefficient of Variation 11.8 % (11.5-14.5); RDW Standard Deviation 33.2 fL (36.4-46.3); Red Blood Count 4.42 M/uL (4.70-6.10)
[2022-11-11 07:58] LABS: BUN Creatinine Ratio 13.9 (10-20); Calcium 8.7 mg/dl (8.6-10.3); Creatinine Clr Calc Pharmacy 54.8 ml/min; Est GFR (African American) 82.2 ml/min; Est GFR (Non-African American) 70.9 ml/min
[2022-11-11] MEDS: ASPIRIN 81 MG ECTAB PO SCH (08:25)
[2022-11-11] MEDS: lisinopril 5 MG TAB PO SCH (08:25)
[2022-11-11] MEDS: PANTOprazole 40 MG TAB PO SCH (08:25)
[2022-11-11] MEDS: ATORVASTATIN 40 MG TAB PO SCH (08:25)
[2022-11-11] MEDS: METOPROLOL TARTRATE 25 MG TAB PO SCH (08:25)
[2022-11-11] MEDS: TICAGRELOR 90 MG TAB PO SCH (08:31)
--- NOTE | 2022-11-11 10:02 | Cardiology Progress Note ---
Date of Service November 11, 2022 Assessment & Plan (1) STEMI (ST elevation myocardial infarction): Plan: Post PCI with VICTOR HUGO to mid RCA 2. Severe nonculprit artery CAD90% LAD, 95% small distal circumflex --> 50% calcified distal LM 3. Preserved LV functionEF 50% with inferior wall motion abnormality 4. Mild MR, mild AI 5. Anemia 6. Dyslipidemia 7. Hypertension Stable from a cardiac standpoint okay for discharge today. Family has made an appointment for him to have CABG/complex PCI evaluation at [facility] on DAPT with aspirin, ticagrelor, Toprol-XL, lisinopril and current statin. Follow-up with me in 1 to 2 weeks. Admission and Anticipated Discharge Date Admission Date: November 08, 2022 Subjective Feeling well. No chest pain. No new concerns. Telemetry reviewed -- no events. Review of Systems Review of Systems: All systems reviewed & are unremarkable except as noted in HPI & below Physical Exam Physical Exam: General: Comfortable HEENT: Sclerae anicteric Lungs: Clear anteriorly Cardiac: Regular Vascular: 2+ radial Abdomen: Soft, nontender Extremities: Well perfused, no peripheral edema Neuro: Nonfocal Psych: Alert orient x3, normal affect and mood Results & Data Vital Signs (Past 12 Hours) Vital Signs Temp Pulse Pulse Resp BP Pulse Ox O2 Del Method 11/11/22 08:26 97.9 F 71 18 116/69 97 Room Air 11/11/22 08:00 93 H 11/11/22 03:00 98.4 F 75 21 132/69 97 Room Air PG Care Time/CCT Total # of Minutes Spent Total Time Spent with Patient: Total time spent is greater than 50% in coordination of care (as documented) at patient's floor/unit and/or counseling patient: Coding Level of Care Code 89627 SUB INP/OBS CARE 2/35MIN Diagnoses STEMI (ST elevation myocardial infarction) I21.3
--- NOTE | 2022-11-11 12:48 | Discharge Summary ---
Date of Service November 11, 2022 Admission HPI Per Admitting Provider The patient is a 77-year-old male with a past medical history including hyperlipidemia, hypertension, hypothyroidism and vitamin D deficiency, who presented to the emergency department with signs and symptoms suggestive of an inferior STEMI. He was placed in a heart alert protocol, and was immediately taken to cardiac catheterization lab by Dr. Chirag Brooks. He was then admitted to the ICU for follow-up care Discharge Exam gen - NAD, pleasant, laying flat in bed comfortably neck - no JVD mouth - MMM heart - RRR, s1 s2, no murmur lungs - CTA B/l abd - soft NT ND BS+ ext - no edema, foot pulses 2+ b/l vascular - right radial region - TR band in place, still minor bleeding from artery -- nursing made aware and adjustments to band made psych - a/o x 3 Discharge Data Allergies Allergy/AdvReac Type Severity Reaction Status Date / Time No Known Allergies Allergy Unknown Verified 11/08/22 21:15 Consultations 11/08/22 21:03 ED Decision to Admit Stat 11/08/22 22:37 Consult Cardiac Rehabilitation Routine 11/08/22 22:38 Consult Marine Equipment Test Engineer Routine Procedures Performed Operation Date: 11/10/22 13:00 Actual Procedures s Cineradiography w/Routine Exam - Neftali Brooks MD s IVUS Coronary Single Vessel - Neftali Brooks MD p Cath, Left with Cors and Vent - Neftali Brooks MD Ordered Studies 11/08/22 21:06 CL Cath Imgs for PACS use only Stat 11/08/22 22:23 CL IVUS Coronary Single Vessel Stat 11/10/22 06:41 CL Cath Imgs for PACS use only Routine 11/10/22 13:01 CL IVUS Coronary Single Vessel Routine Hospital Course (1) STEMI (ST elevation myocardial infarction): presented with inferior STEMI 2nd to 100% occluded RCA s/p heart cath late PM of 11/08/22 with VICTOR HUGO x 1 to the RCA started on Brilenta 90mg BID, asa 81mg daily, lipitor 80mg daily, metoprolol tartrate 12.5mg BID lisinopril dose reduced from 10mg/day to 5mg/day to allow a little more BP room for the metoprolol see #2 below re: today's cath (2) CAD (coronary artery disease): s/p heart cath 11/08 with occluded RCA s/p VICTOR HUGO x 1 s/p heart cath today to reassess his LAD & L Cx lesions --> Severe nonculprit artery CAD with 90% LAD, 95% small distal circumflex, and 50% calcified distal LM due to Left Main disease Dr Brooks advising referral for consideration of CABG cont meds as listed in #1 above (3) Hypertension: controlled (4) Hypothyroidism: TSH 1.5 cont synthroid (5) Non Hodgkin's lymphoma: initial dx - 2010 treated with Rituxan in remission [place] [facility] [place] (6) Hyperlipidemia: pravastatin changed to high-dose lipitor 80mg daily lipid parameters - HDL - 39 LDL - 81 trigs - 225 (7) Benign prostatic hyperplasia with urinary obstruction: not on meds for such (8) Microcytic anemia: Iron studies wnl Heme[place]onc [place] [facility] [place] reference the microcytic anemia and states this is chronic and "not due to Fe deficiency" suspect he has thalaseemia I asked him if he was ever told he had such and he is not aware of having thalaseemia either way the H/H are acceptable (9) Hyponatremia: Na 134 today this issue is chronic dating back several years low-grade SIADH? reset osmostat? other? not on meds that would cause such simply cont usual surveillance for stability Plan updated at bedside hopefully home tomorrow on 11/11 care d/w Dr Brooks Discharge Plan Discharge Items Patient Disposition: Home - Self-Care Reason For Visit: STEMI Discharge Diagnosis: 1. Acute myocardial infarction with placement of stent by Dr Chirag Brooks in the right coronary artery (RCA) 2. Severe coronary artery disease 3. Hyperlipidemia (high cholesterol) 4. Hypertension 5. Hypothyroidism 6. Prediabetes with hemoglobin a1c of 6.1% Activity: Per Instructions section Sexual Activity: Wait until after follow-up appointment Exercise/Sports: Wait until after follow-up appointment Driving/Machine Use: Resume 3 days after discharge Non-emergency contact: Primary Care Provider and Histology Assistant Call non-emergency contact if: you have any medication questions, your symptoms worsen, your pain is not controlled and your pain is worsening Follow-up/Referrals: Ellis Martell MD [Primary Care Provider] - (1 week) Neftali Brooks MD [Physician] - (2 weeks) Diet: Heart Healthy [facility] Attending Provider Instructions: Dr Bowser, You were hospitalized after having had a heart attack. Dr Chirag Brooks took you immediately to the cardiac catheterization lab and found that your right coronary artery was 100% blocked. He placed a stent into this artery to open up the blockage. On 11/10/22 he performed a 2nd heart catheterization. Following this procedure he determined that it would be best for you to see a cardiothoracic surgeon for consideration of open heart surgery to fix the remaining blockages in the other coronary arteries. You have remained stable throughout your stay with normal vital signs and stable lab studies. Your echocardiogram (heart ultrasound) showed that your heart is still strong despite the heart attack. The heart pumping ability, also known as "ejection fraction," was 50-55%. Down to ~50% is considered normal. The ejection fraction may improve into the 60s with heart medicines, time, and fixing the other blocked arteries. You have been started on typical heart medications for your heart and for your stent. These medications are as follows - * aspirin 81mg daily * Brilinta 90mg twice daily (to keep your stent open) * metoprolol 12.5mg twice daily * lisinopril 5mg daily * note that you were previously taking 10mg of lisinopril * lipitor (atorvastatin) 80mg once daily -- this is your cholesterol medication * common side effect - muscle aches * this medication takes the place of your pravastatin We have also provided you a bottle of nitroglycerin tablets. These are for emergency purposes. If you ever have chest pain or any other symptom that is similar to what you had with your heart attack please take a nitroglycerin by placing it under your tongue. You can take up to 3 tablets in 15 minutes for persistent symptoms. If you have to take any number of nitroglycerin tablets please seek medical attention right away. Finally, we checked a hemoglobin a1c test which is a screening test for diabetes. Your a1c was 6.1% which places you in the "pre-diabetic" range. There is nothing to do for this at this moment except to have it followed by Dr Martell over time. Please see handouts on the "hemoglobin a1c test" and "prediabetes." Follow-up - * Dr Brooks in 2 weeks * Dr Martell in 1 week * Cardiothoracic surgery - [facility] or the institution of your choosing - as soon as possible to determine if you are a candidate for open heart surgery [facility] if - * you have any concerns about your catheterization site on your right wrist * you have recurrent chest pains * you have to take nitroglycerin tablets * you have shortness of breath * any other concerns It was our pleasure to care for you! -Dr Dylan Toledotl [employer]ke Production Heater Provider Instructions: Home Care: * Take your medications exactly as directed. Don't skip doses. * Remember that recovery after a heart attack takes time. Plan to rest for at lease 4-8 weeks while you recover. Then return to normal activity when your doctor says it's okay. * Ask your doctor about joining a heart rehabilitation program. * Tell your doctor if you are feeling depressed. Feelings of sadness are common after a heart attack, but it is important that you speak to someone if you are feeling overwhelmed by these feelings. * If you are having chest pain, call 911 for an ambulance. Do NOT drive yourself to the hospital. * Ask your family members to learn CPR. * Learn to take your own blood pressure and pulse. Keep a record of your results. Ask your doctor when you should seek emergency medical attention. He or she will tell you which blood pressure reading is dangerous. Lifestyle Changes: * Maintain a healthy weight. Get help to lose any extra pounds. * Cut back on salt. Limit salt to no more than 2000mg in a 24 hour period. * Limit canned, dried, packaged, and fast foods. * Don't add salt to your food. * Season foods with herbs instead of salt when you cook. * Break the smoking habit. Enroll in a stop-smoking program to improve your chances of success. * Limit fatty foods. * Ask your doctor about having your lipid levels checked regularly. * Build up your activity according to your doctor's recommendation. * Ask your doctor when it's okay to resume sexual activity. * Tell your doctor about any erectile dysfunction (ED) medication you are taking. Some ED medications are not safe if you take certain heart medications. * Try to manage stress. Instructions following your heart catheterization - ACTIVITY RECOMMENDATIONS: * Do not drive or operate any motorized equipment for the next three days. * Limit stair usage (2 or 3 trips a day only) for the next three days. * Do not lift anything heavier than 10 pounds for the next three days especially with your right arm. * Do not engage in vigorous exercise or any sports unless Dr Brooks gives you clearance to do so. * You may shower at this time, but do not immerse the RIGHT WRIST area for three days. In other words - do not take a bath or wash dishes for 3 days. Cleanse the site gently with soap and water. SPECIAL CARE INSTRUCTIONS: * You may replace the pressure dressing on your right wrist TOMORROW afternoon, 11/12/22. * After your procedure, it is normal to have a small bruise or small lump at the site. Examine your site daily for any change in the bruise or lump, redness, swelling, drainage or numbness. Notify your doctor if any change. BLEEDING: * If there is a small amount of bleeding at the site, lie down and apply firm pressure with a clean cloth for ten minutes. When the bleeding stops, lie quietly keeping the procedure limb straight for six hours. Notify your doctor as soon as possible. * If the bleeding does not stop after ten minutes or if there is a large amount of bleeding or spurting, call 911 immediately. Continue to lie down and hold firm pressure until help arrives. SKIN IRRITATION: * You may experience some redness and/or swelling in the area where radiation was administered. If any skin irritation occurs, please contact your family physician. Pending Studies at Discharge: No Stand-Alone Forms: My [facility] [place], Smoking Cessation Medications and DC Order Prescriptions: New Brilinta 90 mg Tablet 90 mg PO BID Qty: 60 2RF atorvastatin [Lipitor] 80 mg tablet 80 mg PO DAILY Qty: 30 2RF aspirin 81 mg Tablet,Delayed Release (Dr/Ec) 81 mg PO QAM Qty: 30 5RF Rx Instructions: purchase [id number] metoprolol tartrate 25 mg Tablet 12.5 mg PO BID Qty: 60 2RF nitroglycerin 0.4 mg tablet, sublingual 0.4 mg sublingual Q5M PRN (Reason: chest pain) Qty: 1 0RF Rx Instructions: maximum 3 doses in 15 minutes. Continued levothyroxine 75 mcg tablet 75 mcg PO DAILY Qty: 90 3RF biotin 5 mg capsule 5 mg PO DAILY cholecalciferol (vitamin D3) 125 mcg (5,000 unit) capsule 125 mcg PO DAILY krill oil 500 mg capsule 500 mg PO DAILY multivitamin Tablet 1 tab PO DAILY Changed lisinopril 5 mg tablet 5 mg PO DAILY Qty: 30 2RF Discontinued pravastatin 20 mg tablet 20 mg PO DAILY Qty: 90 3RF Discharge Orders: Discharge Order (Routine); Ordered 11/11/22 Ordered By: Emmanuel Lagunas/Other Patient Handouts: A1C, Prediabetes, CAD Admission Data Admit Date/Time: 11/08/22 22:38 Attending Provider: Emmanuel Richardson Admit Provider: Neftali Brooks Primary Care Provider: Ellis Martell Other Providers: Emigdio Wright ; Dionna Winn Coding Diagnoses STEMI (ST elevation myocardial infarction) I21.3 CAD (coronary artery disease) I25.10 Hypertension I10 Hypothyroidism E03.9 Non Hodgkin's lymphoma C85.90 Hyperlipidemia E78.5 Benign prostatic hyperplasia with urinary obstruction N40.1; N13.8 Microcytic anemia D50.9 Hyponatremia E87.1
== END 2022-11-11 13:45 | disposition home or self-care (01) | DRG 247 ==
LOC: ED 20:44 → CC 21:24 → SUATTDRO 22:38 → 1E 22:38 → 2S 11-09 14:37

== ENCOUNTER 2024-05-18 19:09 | Inpatient (IN) ==
[2024-05-18 20:31] LABS: Basophils # (auto) 0.01 K/uL (0.00-0.20); Basophils % (auto) 0.1 %; Eosinophils # (auto) 0.05 K/uL (0.00-0.50); Eosinophils % (auto) 0.7 %; Hematocrit (blood only) 37.5 % (42.0-52.0); Hemoglobin 13.1 g/dl (14.0-18.0); Immature Granulocytes # (auto) 0.03 K/uL (0.01-0.20); Immature Granulocytes % (auto) 0.4 %; Lymphocytes # (auto) 1.66 K/uL (1.20-3.40); Lymphocytes % (auto) 21.9 %; Mean Corpuscular Hemoglobin 26.3 pg (25.0-34.0); Mean Corpuscular Hgb Conc 34.9 g/dL (32.0-36.0); Mean Corpuscular Volume 75.3 fL (80.0-100.0); Mean Platelet Volume 9.2 fL (9.4-12.4); Monocytes # (auto) 0.79 K/uL (0.11-0.59); Monocytes % (auto) 10.4 %; Neutrophils # (auto) 5.05 K/uL (1.40-6.50); Neutrophils % (auto) 66.5 %; Platelet Count 232 K/uL (130-400); RDW Coefficient of Variation 11.9 % (11.5-14.5); RDW Standard Deviation 32.4 fL (36.4-46.3); Red Blood Count 4.98 M/uL (4.70-6.10); White Blood Count 7.59 K/ul (4.8-10.8)
[2024-05-18 21:09] LABS: Influenza A virus by PCR Negative (Neg); Influenza B virus by PCR Negative (Neg); RSV by PCR Negative (Neg); SARS CoV2 RNA(COVID-19) Ceph NEGATIVE (Negative)
[2024-05-18 21:11] LABS: Partial Thromboplastin Ratio 1.1; Partial Thromboplastin Time 30 Seconds (21-31); Prothrombin Time 10.8 Seconds (9.0-12.0)
[2024-05-18 21:25] LABS: Albumin Globulin Ratio 1.8 (0.9-2); Albumin Level 4.4 gm/dl (3.4-5.0); BUN Creatinine Ratio 20.3 (10-20); Bilirubin,Total 0.9 mg/dl (0.2-1.0); Calcium 8.6 mg/dl (8.6-10.3); Creatinine Clr Calc Pharmacy 69.7 ml/min; Globulin 2.4 gm/dl (2.5-4.0); Total Protein 6.8 gm/dl (6.0-8.3)
--- NOTE | 2024-05-18 21:52 | Emergency Department Note ---
Impression & Plan Hyponatremia, Herpes zoster virus infection of face and ear nerves ED Provider Note Provider: Patrick Boyle MD DATE OF SERVICE: 05/18/2024 CHIEF COMPLAINT: Weak, nauseous, shingles HISTORY OF PRESENT ILLNESS: Patient is a 79-year-old gentleman history of CAD, hypothyroidism, BPH, and glaucoma presenting here today with . Has had 6 days of what appears to be shingles according to them. Initially thought it might have an ear infection had some left ear pain. Seen in primary care and put on high-dose amoxicillin. Patient became nauseous with this and then developed a rash overlying the left upper face eye nose back towards the temporal region. This has begun to scab over. No history of shingles in the past. Did see their eye doctor by report and started prednisone drops. Does have a history of glaucoma continues with those. Patient did become nauseous experience pain. Unable to really keep down the Tylenol at home. Patient was started on valacyclovir by report. states he has not had much to eat or drink and she did try to give him some Zofran for nausea. This evidently made him sleep for more than a day and is quite fatigued. Patient planing some headache and pain in the neck. No other rashes. No other falls. No other fevers. Denies difficulty swallowing or pain with swallowing. Patient does states he may have a bit discomfort with swallowing a day or 2 ago. No abdominal pain specifically reported. Denies acute visual issue. 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 PAST MEDICAL HISTORY: As noted above MEDICATIONS: Reviewed home medication list SOCIAL HISTORY: PHYSICAL EXAM: GENERAL: alert and oriented in no acute distress on stretcher generally weak however, at bedside Head: Patient with vesicular type rash partially scabbed over extending from left temporal region from the ear to the left forehead left eye and to the left part of the nose. Does not extend to the left jawline. No severe confluent erythema in these area. EYES: No mild injection but no significant discharge or icterus of the eyes. PERRL, EOMI. NECK: Trachea midline. Supple. ENT: Mucous membranes pink however appear tacky and dry. No vesicles noted in the oropharynx. Pharynx without erythema or exudate. Left TM clear and intact. No clear vesicles here. LUNGS: Airway patent. No retractions or tachypnea HEART: Regular rate and rhythm. ABDOMEN: Soft and non-tender, without guarding or rebound. SKIN: Acyanotic, warm, dry, without rashes EXTREMITIES: Without swelling, tenderness or deformity NEUROLOGICAL: No focal deficits. No aphasia. No facial droop or slurred speech. EK bpm normal sinus rhythm. No PVC or PAC. No acute ST segment elevation or depression with QTc of 431. CONTINUOUS CARDIAC MONITORING: was ordered and showed a heart rate of 50s to 60s bpm in normal sinus rhythm to sinus bradycardia Patient's laboratory studies and imaging reviewed. Differential includes Infection/shingles, encephalitis, meningitis,, dehydration, metabolic abnormality, hypo/hyperglycemia, electrolyte disturbance, anemia, hypoxia, cardiac sources, neurologic, as well as other pathologies. IMPRESSION/MEDICAL DECISION MAKING: Patient with what appears to be scabbing over shingles. No evidence of otitis media or obvious mastoiditis. Patient does not appear meningitic or encephalopathic. Able to move his neck and did not appear meningitic and does not have a fever or leukocytosis. Blood work obtained here. Benign abdomen dye significant GI symptoms. Has been on valacyclovir although difficult to say how much she has been able to keep down. Given the decreased intake appears to have suffered significant hyponatremia. Sodium 116 on blood work today. Chronic hyponatremia in the 130s but now significantly worse. No other severe electrolyte abnormality noted. EKG without severe abnormality. Will start gentle hydration discussed with hospitalist with normal saline. DuoNeb given avoid quick overcorrection. Will give some small mount of Zofran given prior reaction as well as some Tylenol to help with symptoms. Given his significant hyponatremia and his weakness and dehydration we will bring into the hospital. Discussion with pharmacy IV dose of acyclovir for antiviral effect ordered. Luckily no acute renal dysfunction. Urine sample pending collection. DIAGNOSIS: Acute hyponatremia, ophthalmic shingles, nausea, weakness DISPOSITION: Hospitalist will evaluate Patient was agreeable with this plan. Past Med/Surg History Problem List (Updated 05/18/24 @ 23:47 by Patrick Boyle M.D.) Herpes zoster virus infection of face and ear nerves (Acute) Erectile dysfunction Prediabetes Microcytic anemia CAD (coronary artery disease) Hyponatremia (Acute) Chronic prostatitis BPH (benign prostatic hyperplasia) Hypothyroidism (Acute) Non Hodgkin's lymphoma (Chronic) Nephrolithiasis (Chronic) Hyperlipidemia (Chronic) Benign prostatic hyperplasia with urinary obstruction (Chronic) Hypertension (Chronic) Anemia (Chronic) Elevated prostate specific antigen (PSA) (Chronic) Glaucoma (Chronic) Leukopenia (Chronic) Multiple nevi (Chronic) Medical History Gross hematuria Cloudy urine ST elevation (STEMI) myocardial infarction STEMI (ST elevation myocardial infarction) Surgical History Status post cataract extraction History of tonsillectomy History of repair of rotator cuff History of lithotripsy History of colonoscopy Status post biopsy of skin History of lymph node biopsy Family History Father Stroke syndrome Stroke Mother Hypertension Family history of cervical cancer Ovarian cancer Sister Hypertension Aunt Breast cancer Other Cancer Heart disease Denies family history of Prostate cancer Myocardial infarction Lung cancer Colorectal cancer Social History Smoking Status: Never smoker Second Hand Exposure: No; Do You Dip or Chew Tobacco: No; Hx Alcohol Use: Yes Alcohol type: wine Alcohol type Comment: maybe gin Alcohol Intake Frequency: Monthly or Less Hx Substance Use: No Preferred Language: Tajik Communication Ability: Effective Visual Impairment: Limited Hearing Ability: Normal Recreational Therapy Technician Required: No Beliefs That Will Affect Care: None marital status: Current Living Situation: Spouse Current Living Situation Comment: home with 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 Children do You have: 1 Feels Safe at Home: Yes Childhood Exposure to Second-Hand Smoke: Yes (father smoked ) caffeine: Yes (drinks 2-3 cups coffee daily ) Dental Care, Regularly: Yes Physical Activity Frequency: 5-6 Times per Week Seatbelt Use: always Sunscreen Use: No Assistive Devices: None Allergies Allergies Allergy/AdvReac Type Severity Reaction Status Date / Time No Known Allergies Allergy Unknown Verified 05/16/24 14:20 Home Meds Home Medications Medication Instructions Recorded Confirmed biotin 5 mg capsule 5 mg PO DAILY 11/10/19 05/18/24 cholecalciferol (vitamin D3) 125 125 mcg PO DAILY 11/10/19 05/18/24 mcg (5,000 unit) capsule multivitamin 1 tab PO DAILY 11/08/22 05/18/24 bimatoprost 0.03 % eye drops 1 drp OPL HS 05/18/24 05/18/24 levothyroxine 75 mcg tablet 75 mcg PO DAILYBB 05/18/24 05/18/24 prednisolone acetate 1 % eye 1 drp OPL QID 05/18/24 05/18/24 drops,suspension timolol maleate 0.5 % eye drops 1 drp OPL QAM 05/18/24 05/18/24 Previous Rx's Medication Instructions Recorded aspirin 81 mg tablet,delayed 81 mg PO QAM #30 tabs 11/11/22 release nitroglycerin 0.4 mg sublingual 0.4 mg sublingual Q5M PRN chest 11/11/22 tablet pain #1 btl lisinopril 10 mg tablet 10 mg PO DAILY #90 tabs 06/12/23 clopidogrel 75 mg tablet 75 mg PO DAILY #90 tabs 11/27/23 tadalafil 20 mg tablet (Cialis) 20 mg PO DAILY PRN sexual activity 12/13/23 #30 tabs rosuvastatin 20 mg tablet 20 mg PO DAILY #90 tabs 12/25/23 Results & Data (ED) Vital Signs Vital Signs - 24 hr 05/18/24 19:13 05/18/24 19:46 05/18/24 19:47 Temperature 36.5 C Temperature Source Temporal Artery Scan Pulse Rate 67 Pulse Rate [Apical] 63 Pulse Rate from SpO2 Sensor Respiratory Rate 18 18 Respiratory Effort / Characteristics Non-Labored Non-Labored Spontaneous Respiratory Depth Normal Normal Respiratory Pattern Regular Regular Blood Pressure 204/88 H 169/89 H Blood Pressure [Left Arm] 169/89 H Blood Pressure Mean 126 125 Blood Pressure Mean [Left Arm] 115 Pulse Oximetry 97 97 Oxygen Delivery Method Room Air Sepsis Recent Fever Within 48 Hours No Sepsis New/Unexplained Change in Mental Status N/A Sepsis Action Taken by Nursing No Action Required 05/18/24 19:48 05/18/24 19:57 05/18/24 20:00 Temperature Temperature Source Pulse Rate 62 62 Pulse Rate [Apical] Pulse Rate from SpO2 Sensor 62 62 Respiratory Rate 16 20 Respiratory Effort / Characteristics Respiratory Depth Respiratory Pattern Blood Pressure 167/90 H Blood Pressure [Left Arm] Blood Pressure Mean 131 Blood Pressure Mean [Left Arm] Pulse Oximetry 97 97 Oxygen Delivery Method Sepsis Recent Fever Within 48 Hours Sepsis New/Unexplained Change in Mental Status Sepsis Action Taken by Nursing 05/18/24 20:03 05/18/24 20:14 05/18/24 20:18 Temperature Temperature Source Pulse Rate 62 63 Pulse Rate [Apical] Pulse Rate from SpO2 Sensor 62 63 Respiratory Rate 25 H 19 Respiratory Effort / Characteristics Respiratory Depth Respiratory Pattern Blood Pressure 174/89 H Blood Pressure [Left Arm] Blood Pressure Mean 104 Blood Pressure Mean [Left Arm] Pulse Oximetry 97 98 Oxygen Delivery Method Sepsis Recent Fever Within 48 Hours Sepsis New/Unexplained Change in Mental Status Sepsis Action Taken by Nursing 05/18/24 20:30 05/18/24 20:30 05/18/24 20:42 Temperature Temperature Source Pulse Rate 60 61 Pulse Rate [Apical] Pulse Rate from SpO2 Sensor 59 L 61 Respiratory Rate 17 19 Respiratory Effort / Characteristics Respiratory Depth Respiratory Pattern Blood Pressure 161/83 H Blood Pressure [Left Arm] Blood Pressure Mean 105 Blood Pressure Mean [Left Arm] Pulse Oximetry 97 98 Oxygen Delivery Method Sepsis Recent Fever Within 48 Hours Sepsis New/Unexplained Change in Mental Status Sepsis Action Taken by Nursing 05/18/24 20:51 05/18/24 21:00 05/18/24 21:03 Temperature Temperature Source Pulse Rate 64 Pulse Rate [Apical] 66 Pulse Rate from SpO2 Sensor 63 Respiratory Rate 14 19 Respiratory Effort / Characteristics Non-Labored Spontaneous Respiratory Depth Normal Respiratory Pattern Regular Blood Pressure 175/89 H Blood Pressure [Left Arm] 175/89 H Blood Pressure Mean 106 Blood Pressure Mean [Left Arm] 117 Pulse Oximetry 96 97 Oxygen Delivery Method Room Air Sepsis Recent Fever Within 48 Hours Sepsis New/Unexplained Change in Mental Status Sepsis Action Taken by Nursing 05/18/24 21:06 05/18/24 21:21 05/18/24 21:30 Temperature Temperature Source Pulse Rate 97 H 61 Pulse Rate [Apical] Pulse Rate from SpO2 Sensor 86 61 Respiratory Rate 15 17 Respiratory Effort / Characteristics Respiratory Depth Respiratory Pattern Blood Pressure 168/82 H Blood Pressure [Left Arm] Blood Pressure Mean 128 Blood Pressure Mean [Left Arm] Pulse Oximetry 97 97 Oxygen Delivery Method Sepsis Recent Fever Within 48 Hours Sepsis New/Unexplained Change in Mental Status Sepsis Action Taken by Nursing 05/18/24 21:30 05/18/24 21:51 05/18/24 22:00 Temperature Temperature Source Pulse Rate 64 61 62 Pulse Rate [Apical] Pulse Rate from SpO2 Sensor 65 61 60 Respiratory Rate 16 15 22 Respiratory Effort / Characteristics Respiratory Depth Respiratory Pattern Blood Pressure Blood Pressure [Left Arm] Blood Pressure Mean Blood Pressure Mean [Left Arm] Pulse Oximetry 98 97 98 Oxygen Delivery Method Sepsis Recent Fever Within 48 Hours Sepsis New/Unexplained Change in Mental Status Sepsis Action Taken by Nursing 05/18/24 22:00 Temperature Temperature Source Pulse Rate Pulse Rate [Apical] Pulse Rate from SpO2 Sensor Respiratory Rate Respiratory Effort / Characteristics Respiratory Depth Respiratory Pattern Blood Pressure 188/97 H Blood Pressure [Left Arm] Blood Pressure Mean 150 Blood Pressure Mean [Left Arm] Pulse Oximetry Oxygen Delivery Method Sepsis Recent Fever Within 48 Hours Sepsis New/Unexplained Change in Mental Status Sepsis Action Taken by Nursing Laboratory Data 05/18/24 20:18 05/18/24 20:18 Lab Results 05/18/24 05/18/24 Range/Units 20:10 20:18 WBC 7.59 (4.8-10.8) K/ul RBC 4.98 (4.70-6.10) M/uL Hgb 13.1 L (14.0-18.0) g/dl Hct 37.5 L (42.0-52.0) % MCV 75.3 L (80.0-100.0) fL MCH 26.3 (25.0-34.0) pg MCHC 34.9 (32.0-36.0) g/dL RDW Std Deviation 32.4 L (36.4-46.3) fL RDW Coeff of John 11.9 (11.5-14.5) % Plt Count 232 (130-400) K/uL MPV 9.2 L (9.4-12.4) fL Immature Gran % (Auto) 0.4 % Neut % (Auto) 66.5 % Lymph % (Auto) 21.9 % [place] % (Auto) 10.4 % Eos % (Auto) 0.7 % Baso % (Auto) 0.1 % Neut # (Auto) 5.05 (1.40-6.50) K/uL Lymph # (Auto) 1.66 (1.20-3.40) K/uL [place] # (Auto) 0.79 H (0.11-0.59) K/uL Eos # (Auto) 0.05 (0.00-0.50) K/uL Baso # (Auto) 0.01 (0.00-0.20) K/uL Immature Gran # (Auto) 0.03 (0.01-0.20) K/uL PT 10.8 (9.0-12.0) Seconds INR 1.0 (0.9-1.1) APTT 30 (21-31) Seconds PTT Ratio 1.1 Sodium 116 L* (136-145) mmol/L Potassium 4.0 (3.5-5.1) mmol/L Chloride 84 L (98-107) mmol/L Carbon Dioxide 24 (21-32) mmol/L Anion Gap 8 (3-11) BUN 16 (6-23) mg/dl Creatinine 0.79 (0.6-1.4) mg/dl Est Cr Clr Drug Dosing 69.7 ml/min eGFR 89.81 BUN/Creatinine Ratio 20.3 H (10-20) Glucose 126 H (70-99(Fasting)) mg/dl Osmolality 247 L (280-300) mOsm/kg Calcium 8.6 (8.6-10.3) mg/dl Magnesium 1.8 (1.7-2.4) mg/dl Total Bilirubin 0.9 (0.2-1.0) mg/dl AST 18 (13-39) U/L ALT 16 (7-52) U/L Alkaline Phosphatase 55 (34-104) U/L Total Protein 6.8 (6.0-8.3) gm/dl Albumin 4.4 (3.4-5.0) gm/dl Globulin 2.4 L (2.5-4.0) gm/dl Albumin/Globulin Ratio 1.8 (0.9-2) TSH 0.357 (0.300-4.500) uIu/ml SARS-CoV-2 (PCR) NEGATIVE (Negative) Influenza Type A (PCR) Negative (Neg) Influenza Type B (PCR) Negative (Neg) RSV (RT-PCR) Negative (Neg) Administered Medications Sodium Chloride (Nss) 500 mls @ 80 mls/hr IV .[id number] [facility] Stop: 05/19/24 04:14 Last Admin: 05/18/24 22:02 Dose: 80 mls/hr Documented By: [facility] Discontinued Medications Acetaminophen (Ofirmev) 1,000 mg in 100 mls @ 400 mls/hr IV NOW STA Stop: 05/18/24 22:05 Last Infusion: 05/18/24 22:30 Dose: Infused Documented By: Admin: 05/18/24 22:03 Dose: 400 mls/hr Documented By: OFELIA Acyclovir Sodium 700 mg/ (Dextrose) 264 mls @ 250 mls/hr IV NOW ONE; Protocol Stop: 05/18/24 22:55 Last Admin: 05/18/24 22:30 Dose: 250 mls/hr Documented By: OFELIA Sodium Chloride (Hypertonic Saline 3%) 100 mls @ 600 mls/hr IV .Q10M ONE; Protocol Stop: 05/18/24 22:57 Last Admin: 05/18/24 23:30 Dose: 600 mls/hr Documented By: DONNA Co-signed By: SHIRA Pantoprazole Sodium (Protonix) 40 mg in 10 mls @ 5 mls/min IV NOW STA Stop: 05/18/24 22:57 Last Admin: 05/18/24 23:30 Dose: 5 mls/min Documented By: DONNA Ondansetron HCl (Ondansetron Inj 2 Mg/Ml 2 Ml Vial) 2 mg IV NOW STA Stop: 05/18/24 21:53 Last Admin: 05/18/24 22:03 Dose: 2 mg Documented By: OFELIA Discharge Plan Visit Data Chief Complaint: Illness Stated Complaint: SHINGLES ED Provider: Patrick Boyle Discharge Problem: Hyponatremia, Herpes zoster virus infection of face and ear nerves Patient Disposition: Being Evaluated by Hospitalist Forms Stand Alone Forms: My [facility] Prescriptions Prescriptions: No Action lisinopril 10 mg tablet 10 mg PO DAILY Qty: 90 3RF rosuvastatin 20 mg tablet 20 mg PO DAILY Qty: 90 3RF clopidogrel 75 mg tablet 75 mg PO DAILY Qty: 90 3RF biotin 5 mg capsule 5 mg PO DAILY cholecalciferol (vitamin D3) 125 mcg (5,000 unit) capsule 125 mcg PO DAILY tadalafil [Cialis] 20 mg tablet 20 mg PO DAILY PRN (Reason: sexual activity) Qty: 30 0RF Rx Instructions: administer approximately 30min before sexual activity; do not use more than 1 dose per 24hrs multivitamin Tablet 1 tab PO DAILY aspirin 81 mg Tablet,Delayed Release (Dr/Ec) 81 mg PO QAM Qty: 30 5RF Rx Instructions: purchase [id number] nitroglycerin 0.4 mg tablet, sublingual 0.4 mg sublingual Q5M PRN (Reason: chest pain) Qty: 1 0RF Rx Instructions: maximum 3 doses in 15 minutes. levothyroxine 75 mcg tablet 75 mcg PO DAILYBB bimatoprost 0.03 % drops 1 drp OPL HS prednisolone acetate 1 % Drops,Suspension 1 drp OPL QID timolol maleate 0.5 % drops 1 drp OPL QAM Referrals Referrals: Julita Crawford CRNP [Nurse Practitioner] -
[2024-05-18] MEDS: SODIUM CHLORIDE 0.9% 500 ML IV SCH (22:02)
[2024-05-18] MEDS: ONDANSETRON INJ 2 MG/ML 2 ML VIAL IV STA (22:03)
[2024-05-18] MEDS: ACETAMINOPHEN 1,000 MG/100 ML VIAL IV STA (22:03)
[2024-05-18 22:12] LABS: Magnesium 1.8 mg/dl (1.7-2.4)
[2024-05-18] MEDS: ACYCLOVIR SOD 700 MG in DEXTROSE 5% 250 ML IV ONE (22:30)
[2024-05-18 22:31] LABS: Thyroid Stimulating Hormone 0.357 uIu/ml (0.300-4.500)
[2024-05-18] MEDS ORDERED: STAT IV/IM STA (22:48)
--- NOTE | 2024-05-18 23:02 | History & Physical Report ---
Date of Service May 18, 2024 Assessment & Plan (1) Herpes zoster virus infection of face and ear nerves: (2) CAD (coronary artery disease): (3) Hyponatremia: (4) Hypothyroidism: (5) Benign prostatic hyperplasia with urinary obstruction: (6) Glaucoma: (7) Hyperlipidemia: Plan Herpes zoster left V1 distribution- Patient with such severe pain that he is nauseous limiting oral intake Acyclovir 700 mg IV every 8 hours Acetaminophen 1 g IV every 8 hours as needed for mild pain or fever Toradol 10 mg IV every 6 hours as needed for moderate pain. Of note, patient and request no use of narcotics Zofran 2 mg IV every 4 hours as needed Pantoprazole 40 mg IV now and every morning NSS at 80 mL/h Ophthalmologic- Patient will continue to use glaucoma eyedrops as directed: Timolol maleate and Lumigan He has been prescribed prednisolone acetate 1% drops in left eye 4 times daily Will add trifluridine 1 drop in left eye every 4 hours while awake Acute on chronic hyponatremia- Sodium 116 on admission, with serum and urine osmolality pending Patient with dehydration due to decreased oral intake and nausea/vomiting over the past 3 days Give 100 mL of 3% hypertonic saline now NSS at 80 mL/h BMP every 4 hours, with further treatment as labs direct CAD/hypertension- Continue aspirin, and clopidogrel Hold lisinopril History of Present Illness Chief Complaint: The patient presents to the emergency department with complaint of 6 days of persistent shingles type rash over his left forehead and temporal area, with lesion on tip of his nose, and complaint of left ear pain. His symptoms began with left ear pain 6 days ago, and was then placed on amoxicillin by his PCP. A few days later he developed a painful rash over his left eye, forehead and cheondoism area. The patient was seen by his eye doctor and was placed on Pred forte drops 4 times daily in the left eye. He has become more nauseous due to the pain, causing decreased oral intake over the past 3 days, and thus decreased bowel movements and urine output as well. Patient was then started on Valtrex 1 g by mouth 3 times daily, and told use Tylenol as needed, but had such severe nausea due to the pain that he is unable to keep the pills down. The last meal he was able to keep down was 3 days ago. He thus presents to the ED for assessment. Primary Care Provider: Michael Vasquez DO The patient is an 79-year-old male with a past medical history including CAD, hyponatremia, BPH with LUTS, hypothyroidism, non-Hodgkin's lymphoma, hyperlipidemia, hypertension, and glaucoma. He presents to the emergency department with main complaint of severe nausea secondary to a painful rash over his left frontal and temporal area, above his left eye as noted above. Significant laboratory abnormalities including sodium of 116, with most recent on 02/18/2024 of 130. COVID, flu and RSV testing are negative Allergies Allergy/AdvReac Type Severity Reaction Status Date / Time No Known Allergies Allergy Unknown Verified 05/16/24 14:20 Home Medications Medication Instructions Recorded Confirmed Type biotin 5 mg capsule 5 mg PO DAILY 11/10/19 05/18/24 History cholecalciferol (vitamin D3) 125 125 mcg PO DAILY 11/10/19 05/18/24 History mcg (5,000 unit) capsule multivitamin 1 tab PO DAILY 11/08/22 05/18/24 History aspirin 81 mg tablet,delayed 81 mg PO QAM #30 tabs 11/11/22 05/18/24 Rx release nitroglycerin 0.4 mg sublingual 0.4 mg sublingual Q5M PRN chest 11/11/22 05/18/24 Rx tablet pain #1 btl lisinopril 10 mg tablet 10 mg PO DAILY #90 tabs 06/12/23 05/18/24 Rx clopidogrel 75 mg tablet 75 mg PO DAILY #90 tabs 11/27/23 05/18/24 Rx tadalafil 20 mg tablet (Cialis) 20 mg PO DAILY PRN sexual activity 12/13/23 05/18/24 Rx #30 tabs rosuvastatin 20 mg tablet 20 mg PO DAILY #90 tabs 12/25/23 05/18/24 Rx bimatoprost 0.03 % eye drops 1 drp OPL HS 05/18/24 05/18/24 History levothyroxine 75 mcg tablet 75 mcg PO DAILYBB 05/18/24 05/18/24 History prednisolone acetate 1 % eye 1 drp OPL QID 05/18/24 05/18/24 History drops,suspension timolol maleate 0.5 % eye drops 1 drp OPL QAM 05/18/24 05/18/24 History Past Med/Surg History Problem List (Updated 05/18/24 @ 23:47 by Patrick Boyle M.D.) Herpes zoster virus infection of face and ear nerves (Acute) Erectile dysfunction Prediabetes Microcytic anemia CAD (coronary artery disease) Hyponatremia (Acute) Chronic prostatitis BPH (benign prostatic hyperplasia) Hypothyroidism (Acute) Non Hodgkin's lymphoma (Chronic) Nephrolithiasis (Chronic) Hyperlipidemia (Chronic) Benign prostatic hyperplasia with urinary obstruction (Chronic) Hypertension (Chronic) Anemia (Chronic) Elevated prostate specific antigen (PSA) (Chronic) Glaucoma (Chronic) Leukopenia (Chronic) Multiple nevi (Chronic) Medical History Gross hematuria Cloudy urine ST elevation (STEMI) myocardial infarction STEMI (ST elevation myocardial infarction) Surgical History Status post cataract extraction History of tonsillectomy History of repair of rotator cuff History of lithotripsy History of colonoscopy Status post biopsy of skin History of lymph node biopsy Family History Father Stroke syndrome Stroke Mother Hypertension Family history of cervical cancer Ovarian cancer Sister Hypertension Aunt Breast cancer Other Cancer Heart disease Denies family history of Prostate cancer Myocardial infarction Lung cancer Colorectal cancer Social History Smoking Status: Never smoker Second Hand Exposure: No; Do You Dip or Chew Tobacco: No; Hx Alcohol Use: No Hx Substance Use: No Preferred Language: [place] Citizen Communication Ability: Effective Visual Impairment: Limited Hearing Ability: Normal Sow Farm Manager Required: No Beliefs That Will Affect Care: None marital status: Current Living Situation: Spouse Current Living Situation Comment: home w/ 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 Children do You have: 1 Feels Safe at Home: Yes Childhood Exposure to Second-Hand Smoke: Yes (father smoked ) caffeine: Yes (drinks 2-3 cups coffee daily ) Dental Care, Regularly: Yes Physical Activity Frequency: 5-6 Times per Week Seatbelt Use: always Sunscreen Use: No Assistive Devices: None Review of Systems Review of Systems: The patient denies chest pain, palpitations, shortness of breath, dyspnea on exertion, cough, lower extremity swelling, sore throat, fevers, chills, sweats, diarrhea , constipation, abdominal pain, pelvic pain, blood in urine or stool, dysuria, urinary frequency or urgency, memory loss, loss of consciousness, abnormal bruising or bleeding, imbalance, focal weakness, numbness or tingling in arms or legs, generalized arthralgias or myalgias, back or neck pain, or night sweats. The review of systems is otherwise negative other than for that already noted above, and at least 10 systems have been reviewed. Physical Exam Physical Exam: The patient is awake, alert and oriented 3, and in moderate distress secondary to rash HEENT--PERRL, EOMI, mucous membranes and oropharynx dry. rash with lesions in various stages of irritation and scabbing on left forehead and temporal area, including tip of nose Neck--supple. No JVD. No bruits. Thyroid normal, trachea midline, no adenopathy. Heart--normal S1 and S2. No murmurs, rubs or gallops. Lungs--clear bilaterally, no respiratory distress, no accessory muscle use. Abdomen--normal bowel sounds and soft. Nontender. Nondistended, no hernias or masses, no organomegaly. Extremities--no cyanosis or clubbing. No edema. There are good distal pulses b/l. Dermatologic--rash as noted above. Neurologic--cranial nerves II through XII grossly intact. Rheumatologic--normal range of motion. Psychiatric--normal affect. Results & Data Results & Data Vital Signs (Past 12 Hours) Vital Signs Temp Pulse Pulse Resp BP BP Pulse Ox 05/18/24 22:00 188/97 H 05/18/24 22:00 62 22 98 05/18/24 21:51 61 15 97 05/18/24 21:30 64 16 98 05/18/24 21:30 168/82 H 05/18/24 21:21 61 17 97 05/18/24 21:06 97 H 15 97 05/18/24 21:03 66 19 175/89 H 97 05/18/24 21:00 175/89 H 05/18/24 20:51 64 14 96 05/18/24 20:42 61 19 98 05/18/24 20:30 60 17 97 05/18/24 20:30 161/83 H 05/18/24 20:18 63 19 98 05/18/24 20:14 174/89 H 05/18/24 20:03 62 25 H 97 05/18/24 20:00 167/90 H 05/18/24 19:57 62 20 97 05/18/24 19:48 62 16 97 05/18/24 19:47 169/89 H 05/18/24 19:46 63 18 169/89 H 97 05/18/24 19:13 36.5 C 67 18 204/88 H 97 O2 Del Method 05/18/24 22:00 05/18/24 22:00 05/18/24 21:51 05/18/24 21:30 05/18/24 21:30 05/18/24 21:21 05/18/24 21:06 05/18/24 21:03 Room Air 05/18/24 21:00 05/18/24 20:51 05/18/24 20:42 05/18/24 20:30 05/18/24 20:30 05/18/24 20:18 05/18/24 20:14 05/18/24 20:03 05/18/24 20:00 05/18/24 19:57 05/18/24 19:48 05/18/24 19:47 05/18/24 19:46 05/18/24 19:13 Room Air Laboratory Results Laboratory Results WBC 7.59 K/ul (4.8-10.8) 05/18/24 20:18 RBC 4.98 M/uL (4.70-6.10) 05/18/24 20:18 Hgb 13.1 g/dl (14.0-18.0) L 05/18/24 20:18 Hct 37.5 % (42.0-52.0) L 05/18/24 20:18 MCV 75.3 fL (80.0-100.0) L 05/18/24 20:18 MCH 26.3 pg (25.0-34.0) 05/18/24 20:18 MCHC 34.9 g/dL (32.0-36.0) 05/18/24 20:18 RDW Std Deviation 32.4 fL (36.4-46.3) L 05/18/24 20:18 RDW Coeff of John 11.9 % (11.5-14.5) 05/18/24 20:18 Plt Count 232 K/uL (130-400) 05/18/24 20:18 MPV 9.2 fL (9.4-12.4) L 05/18/24 20:18 Immature Gran % (Auto) 0.4 % 05/18/24 20:18 Neut % (Auto) 66.5 % 05/18/24 20:18 Lymph % (Auto) 21.9 % 05/18/24 20:18 [place] % (Auto) 10.4 % 05/18/24 20:18 Eos % (Auto) 0.7 % 05/18/24 20:18 Baso % (Auto) 0.1 % 05/18/24 20:18 Neut # (Auto) 5.05 K/uL (1.40-6.50) 05/18/24 20:18 Lymph # (Auto) 1.66 K/uL (1.20-3.40) 05/18/24 20:18 [place] # (Auto) 0.79 K/uL (0.11-0.59) H 05/18/24 20:18 Eos # (Auto) 0.05 K/uL (0.00-0.50) 05/18/24 20:18 Baso # (Auto) 0.01 K/uL (0.00-0.20) 05/18/24 20:18 Immature Gran # (Auto) 0.03 K/uL (0.01-0.20) 05/18/24 20:18 PT 10.8 Seconds (9.0-12.0) 05/18/24 20:18 INR 1.0 (0.9-1.1) 05/18/24 20:18 APTT 30 Seconds (21-31) 05/18/24 20:18 PTT Ratio 1.1 05/18/24 20:18 Sodium 119 mmol/L (136-145) L* 05/19/24 01:20 Potassium 3.7 mmol/L (3.5-5.1) 05/19/24 01:20 Chloride 88 mmol/L (98-107) L 05/19/24 01:20 Carbon Dioxide 26 mmol/L (21-32) 05/19/24 01:20 Anion Gap 5 (3-11) 05/19/24 01:20 BUN 15 mg/dl (6-23) 05/19/24 01:20 Creatinine 0.81 mg/dl (0.6-1.4) 05/19/24 01:20 Est Cr Clr Drug Dosing 68.0 ml/min 05/19/24 01:20 eGFR 89.13 05/19/24 01:20 BUN/Creatinine Ratio 18.5 (10-20) 05/19/24 01:20 Glucose 123 mg/dl (70-99(Fasting)) H 05/19/24 01:20 Osmolality 247 mOsm/kg (280-300) L 05/18/24 20:18 Calcium 8.1 mg/dl (8.6-10.3) L 05/19/24 01:20 Magnesium 1.8 mg/dl (1.7-2.4) 05/18/24 20:18 Total Bilirubin 0.9 mg/dl (0.2-1.0) 05/18/24 20:18 AST 18 U/L (13-39) 05/18/24 20:18 ALT 16 U/L (7-52) 05/18/24 20:18 Alkaline Phosphatase 55 U/L (34-104) 05/18/24 20:18 Total Protein 6.8 gm/dl (6.0-8.3) 05/18/24 20:18 Albumin 4.4 gm/dl (3.4-5.0) 05/18/24 20:18 Globulin 2.4 gm/dl (2.5-4.0) L 05/18/24 20:18 Albumin/Globulin Ratio 1.8 (0.9-2) 05/18/24 20:18 TSH 0.357 uIu/ml (0.300-4.500) 05/18/24 20:18 SARS-CoV-2 (PCR) NEGATIVE (Negative) 05/18/24 20:10 Influenza Type A (PCR) Negative (Neg) 05/18/24 20:10 Influenza Type B (PCR) Negative (Neg) 05/18/24 20:10 RSV (RT-PCR) Negative (Neg) 05/18/24 20:10 Code Status & VTE Plan Code Status Full code VTE Prophylaxis Plan VTE Prophylaxis will be ordered: Yes PG Care Time/CCT Total # of Minutes Spent Total Time Spent with Patient: Total time spent is greater than 50% in coordination of care (as documented) at patient's floor/unit and/or counseling patient: Coding Level of Care Code 80480 INT INP/OBS CARE 375MIN Diagnoses Herpes zoster virus infection of face and ear nerves B02.29 CAD (coronary artery disease) I25.10 Hyponatremia E87.1 Hypothyroidism E03.9 Benign prostatic hyperplasia with urinary obstruction N40.1; N13.8 Glaucoma H40.9 Hyperlipidemia E78.5
[2024-05-18] MEDS: SODIUM CHLORIDE 3 % 100 ML IV ONE (23:30)
[2024-05-18] MEDS: PANTOprazole 40 MG/10 ML SYR IV STA (23:30)
[2024-05-19] MEDS ORDERED: NITROGLYCERIN SL 0.4 MG/TAB TAB SL PRN (00:56)
[2024-05-19] MEDS: TRIFLURIDINE 1% 7.5 ML BTL OPL ONE (01:14)
[2024-05-19 02:10] LABS: BUN Creatinine Ratio 18.5 (10-20); Calcium 8.1 mg/dl (8.6-10.3); Potassium 3.7 mmol/L (3.5-5.1)
[2024-05-19] MEDS: KETOROLAC TROMETHAMINE 15 MG/ML VIAL IV PRN (04:13)
[2024-05-19] MEDS: LEVOTHYROXINE SODIUM 75 MCG TABLET PO SCH (05:45)
[2024-05-19] MEDS: ACYCLOVIR SOD 700 MG in DEXTROSE 5% 250 ML IV SCH (05:45)
[2024-05-19 06:21] LABS: Basophils # (auto) 0.01 K/uL (0.00-0.20); Basophils % (auto) 0.2 %; Eosinophils # (auto) 0.06 K/uL (0.00-0.50); Hematocrit (blood only) 36.6 % (42.0-52.0); Hemoglobin 12.7 g/dl (14.0-18.0); Immature Granulocytes # (auto) 0.01 K/uL (0.01-0.20); Immature Granulocytes % (auto) 0.2 %; Lymphocytes # (auto) 1.68 K/uL (1.20-3.40); Mean Corpuscular Hgb Conc 34.7 g/dL (32.0-36.0); Mean Platelet Volume 9.3 fL (9.4-12.4); Monocytes # (auto) 0.87 K/uL (0.11-0.59); Neutrophils % (auto) 57.6 %; Platelet Count 220 K/uL (130-400); RDW Coefficient of Variation 11.9 % (11.5-14.5); RDW Standard Deviation 32.2 fL (36.4-46.3); Red Blood Count 4.88 M/uL (4.70-6.10); White Blood Count 6.23 K/ul (4.8-10.8)
[2024-05-19 06:44] LABS: BUN Creatinine Ratio 17.1 (10-20); Calcium 8.5 mg/dl (8.6-10.3); Creatinine Clr Calc Pharmacy 67.2 ml/min; Potassium 3.8 mmol/L (3.5-5.1)
--- NOTE | 2024-05-19 07:07 | Hospitalist Progress Note ---
Date of Service May 19, 2024 Assessment & Plan (1) Herpes zoster virus infection of face and ear nerves: (2) CAD (coronary artery disease): (3) Hyponatremia: (4) Hypothyroidism: (5) Benign prostatic hyperplasia with urinary obstruction: (6) Glaucoma: (7) Hyperlipidemia: Plan Herpes zoster left V1 distribution- Continue Acyclovir 700 mg IV every 8 hours Acetaminophen 1 g IV every 8 hours as needed for mild pain or fever Toradol 10 mg IV every 6 hours as needed for moderate pain. Of note, patient and request no use of narcotics Zofran 2 mg IV every 4 hours as needed for N/V Pantoprazole 40 mg IV daily Herpes Zoster Ophthalmicus: Pt started on prednisolone acetate 1% drops in left eye QID by outpatient ophthalmology, case discussed with Dr. Stephenson who felt consult was not warranted, recommends follow up with outpatient ophthalmology Dr. Burt on Sunday Continue trifluridine 1 drop in left eye every 4 hours while awake Acute on chronic hyponatremia- Sodium 116 on admission - s/p bolus of hypertonic saline and started on IV NS - subsequent Na 119, 123 IV fluids paused given that sodium increased by 7 points over ~8 hours Continue BMP Q4 hours, with further treatment as labs direct - goal correction max 12 mmol/L per 24 hours CAD/hypertension- Continue aspirin, and clopidogrel Hold lisinopril FEN/GI: HH VTE ppx: Heparin Admission and Anticipated Discharge Date Admission Date: May 18, 2024 Supervising Physician Co-Signing Physician Notes I personally examined the patient and verified all patel points of history and exam, discussed case, and agree with decision making with Dr Rankin eye feeling better appetite coming back some weak vitals noted nad heent nc at mmm L forehead crusted shingles lesions, as well as in medial bridge of nose; L eye conjunctival sl injected no ulceration or cl ouding, pt notes vision intact V1 shingles - IV acyclovir, steroid eye drops hyponatremia - acutely appearing to be due to poor PO intake - which appears to have been due to n/v (which based on hx seems to have been valtrex side effect > side effect of illness). PO intake improving, Na improving - continue to follow closely weakness - hopefully will improve as Na improves. PT/OT eval and treat DVT proph - heparin SQ Subjective Patient seen at bedside - notes current pain level 3/10, ate a small amount for breakfast and has not vomited since admission. Primary site of pain is left eye, denies changes in vision. Denies fevers, chills, myalgias. Patient was seen by outpatient ophtho last Sunday, was started on prednisolone eyedrops. Review of Systems Review of Systems: as per HPI Physical Exam Physical Exam: General: Alert and oriented. No acute distress HEENT: left eye with conjunctival injection, increasing tearing Cardiac: Regular rate and rhythm, no murmurs appreciated Respiratory: Lungs clear to auscultation bilaterally, No increased work of breathing Skin: Left frontal, temporal region and tip of nose with scattered vesicular lesions in various stages of healing Results & Data Results & Data Vital Signs (Past 12 Hours) Vital Signs Temp Pulse Pulse Resp BP BP Pulse Ox 05/19/24 03:39 36.5 C 64 17 171/84 H 98 05/19/24 01:26 82 05/19/24 00:56 36.6 C 60 15 179/81 H 98 05/19/24 00:13 62 20 149/73 H 94 05/19/24 00:00 57 L 16 149/73 H 96 05/18/24 23:56 36.6 C 63 18 183/89 H 97 05/18/24 23:30 60 16 157/77 H 98 05/18/24 23:00 56 L 15 169/77 H 96 05/18/24 22:30 61 14 179/94 H 99 05/18/24 22:00 188/97 H 05/18/24 22:00 188/97 H 05/18/24 22:00 62 22 98 05/18/24 21:51 61 15 97 05/18/24 21:30 64 16 98 05/18/24 21:30 168/82 H 05/18/24 21:21 61 17 97 05/18/24 21:06 97 H 15 97 05/18/24 21:03 66 19 175/89 H 97 05/18/24 21:00 175/89 H 05/18/24 20:51 64 14 96 05/18/24 20:42 61 19 98 05/18/24 20:30 60 17 97 05/18/24 20:30 161/83 H 05/18/24 20:18 63 19 98 05/18/24 20:14 174/89 H 05/18/24 20:03 62 25 H 97 05/18/24 20:00 167/90 H 05/18/24 19:57 62 20 97 05/18/24 19:48 62 16 97 05/18/24 19:47 169/89 H 05/18/24 19:46 63 18 169/89 H 97 05/18/24 19:13 36.5 C 67 18 204/88 H 97 O2 Del Method 05/19/24 03:39 Room Air 05/19/24 01:26 05/19/24 00:56 Room Air 05/19/24 00:13 Room Air 05/19/24 00:00 05/18/24 23:56 Room Air 05/18/24 23:30 05/18/24 23:00 05/18/24 22:30 05/18/24 22:00 05/18/24 22:00 05/18/24 22:00 05/18/24 21:51 05/18/24 21:30 05/18/24 21:30 05/18/24 21:21 05/18/24 21:06 05/18/24 21:03 Room Air 05/18/24 21:00 05/18/24 20:51 05/18/24 20:42 05/18/24 20:30 05/18/24 20:30 05/18/24 20:18 05/18/24 20:14 05/18/24 20:03 05/18/24 20:00 05/18/24 19:57 05/18/24 19:48 05/18/24 19:47 05/18/24 19:46 05/18/24 19:13 Room Air Resident Activity Tracking Resident Involvement: Resident Care Provided Care Provided: Adult Hospital Medicine
[2024-05-19] MEDS: ONDANSETRON INJ 2 MG/ML 2 ML VIAL IV PRN (08:15)
[2024-05-19] MEDS: CHOLECALCIFEROL 125 MCG (5,000 UNITS) TAB PO SCH (08:16)
[2024-05-19] MEDS: MULTIVITAMIN TAB PO SCH (08:17)
[2024-05-19] MEDS: PANTOprazole 40 MG/10 ML SYR IV SCH (08:17)
[2024-05-19] MEDS: CLOPIDOGREL BISULFATE 75 MG TAB PO SCH (08:17)
[2024-05-19] MEDS: ASPIRIN 81 MG ECTAB PO SCH (08:17)
[2024-05-19] MEDS: ROSUVASTATIN CALCIUM 20 MG TAB PO SCH (08:17)
[2024-05-19] MEDS: prednisoLONE acetate 1% OP SUSP 5 ML BTL OPL SCH (08:19)
[2024-05-19] MEDS: TIMOLOL MALEATE 0.5% OP SOLN 5 ML BTL OPL SCH (08:19)
[2024-05-19] MEDS: HEPARIN SOD 5,000 UNIT/0.5 ML VIAL SQ SCH (08:27)
[2024-05-19] MEDS: TRIFLURIDINE 1% 7.5 ML BTL OPL SCH (08:27)
[2024-05-19] MEDS ORDERED: NON-FORMULARY MEDICATION (Biotin 5 mg capsule) PO SCH (09:00)
[2024-05-19 09:29] LABS: BUN Creatinine Ratio 17.4 (10-20); Calcium 8.3 mg/dl (8.6-10.3); Creatinine Clr Calc Pharmacy 64.1 ml/min; Potassium 3.7 mmol/L (3.5-5.1)
[2024-05-19 13:08] LABS: BUN Creatinine Ratio 14.2 (10-20); Calcium 8.5 mg/dl (8.6-10.3); Potassium 3.8 mmol/L (3.5-5.1)
--- NOTE | 2024-05-19 17:23 | Billing Data ---
Date of Service May 19, 2024 Coding Level of Care Code 02966 SUB INP/OBS CARE
[2024-05-19 18:28] LABS: BUN Creatinine Ratio 16.3 (10-20); Calcium 8.4 mg/dl (8.6-10.3); Creatinine Clr Calc Pharmacy 59.9 ml/min; Potassium 3.9 mmol/L (3.5-5.1)
[2024-05-19] MEDS: BIMATOPROST 0.01% OP SOLN 2.5 ML BTL OPL SCH (20:50)
[2024-05-19 22:17] LABS: BUN Creatinine Ratio 17.8 (10-20); Calcium 8.3 mg/dl (8.6-10.3); Creatinine Clr Calc Pharmacy 61.2 ml/min; Potassium 3.7 mmol/L (3.5-5.1)
[2024-05-19] MEDS: SODIUM CHLORIDE 0.9% 500 ML IV SCH (22:54)
[2024-05-19 23:02] LABS: Appearance Urine Clear (Clear); Bacteria Urine Automated None Seen (None Seen); Bilirubin Urine Negative (Negative); Blood Urine 2+ (Negative); Cast Urine Automated 0-2 /lpf (0-2); Color Urine Yellow; Epithelial Cell Urine Auto 0-2 /hpf (0-2); Glucose Urine UA Negative (Negative); Ketones Urine Negative (Negative); Leukocyte Esterase Urine Negative (Negative); Nitrite Urine Negative (Negative); Protein Urine Negative (Negative); RBC Urine Automated >20 /hpf (0-2); Specific Gravity Urine 1.012 (1.000-1.030); Urobilinogen Urine Negative (Negative); WBC Urine Automated 0-5 /hpf (0-5); pH Urine 7.5 (4.5-7.5)
[2024-05-20 02:05] LABS: Basophils # (auto) 0.01 K/uL (0.00-0.20); Basophils % (auto) 0.1 %; Eosinophils # (auto) 0.07 K/uL (0.00-0.50); Eosinophils % (auto) 0.9 %; Hematocrit (blood only) 34.5 % (42.0-52.0); Hemoglobin 12.4 g/dl (14.0-18.0); Immature Granulocytes # (auto) 0.02 K/uL (0.01-0.20); Immature Granulocytes % (auto) 0.3 %; Lymphocytes # (auto) 1.91 K/uL (1.20-3.40); Lymphocytes % (auto) 24.1 %; Mean Corpuscular Hemoglobin 26.8 pg (25.0-34.0); Mean Corpuscular Hgb Conc 35.9 g/dL (32.0-36.0); Mean Corpuscular Volume 74.5 fL (80.0-100.0); Mean Platelet Volume 9.4 fL (9.4-12.4); Monocytes # (auto) 0.97 K/uL (0.11-0.59); Monocytes % (auto) 12.2 %; Neutrophils # (auto) 4.94 K/uL (1.40-6.50); Neutrophils % (auto) 62.4 %; Platelet Count 219 K/uL (130-400); RDW Coefficient of Variation 11.8 % (11.5-14.5); RDW Standard Deviation 31.8 fL (36.4-46.3); Red Blood Count 4.63 M/uL (4.70-6.10); White Blood Count 7.92 K/ul (4.8-10.8)
[2024-05-20 02:26] LABS: BUN Creatinine Ratio 19.8 (10-20); Calcium 8.1 mg/dl (8.6-10.3); Creatinine Clr Calc Pharmacy 64.1 ml/min; Potassium 3.7 mmol/L (3.5-5.1)
[2024-05-20] MEDS ORDERED: STAT IV/IM STA (02:37)
[2024-05-20] MEDS: SODIUM CHLORIDE 3 % 50 ML IV ONE (02:59)
--- NOTE | 2024-05-20 06:44 | Hospitalist Progress Note ---
Date of Service May 20, 2024 Assessment & Plan (1) Herpes zoster virus infection of face and ear nerves: (2) CAD (coronary artery disease): (3) Hyponatremia: (4) Hypothyroidism: (5) Benign prostatic hyperplasia with urinary obstruction: (6) Glaucoma: (7) Hyperlipidemia: Plan Herpes zoster left V1 distribution- Continue Acyclovir 700 mg IV every 8 hours Acetaminophen 1 g IV every 8 hours as needed for mild pain or fever Toradol 10 mg IV every 6 hours as needed for moderate pain. Of note, patient and request no use of narcotics Zofran 2 mg IV every 4 hours as needed for N/V Pantoprazole 40 mg IV daily Herpes Zoster Ophthalmicus: Pt started on prednisolone acetate 1% drops in left eye QID by outpatient ophthalmology, outpatient ophthalmology Dr. Burt on Sunday Continue trifluridine 1 drop in left eye every 4 hours while awake Acute on chronic hyponatremia- Sodium 116 on admission - backtracked overnight despite additional 50mL hypertonic saline and 500mL NS, most recent Na 118 Suspect hypovolemic hyponatremia, will continue NS @100mL/hour with adjustment based on labs Continue BMP Q4 hours, with further treatment as labs direct - goal correction max 12 mmol/L per 24 hours Continue salt tabs 2g daily Generalized Weakness: Likely secondary to hyponatremia, independent at baseline PT/OT evaluation and treatment CAD/hypertension- Continue aspirin, and clopidogrel Hold lisinopril FEN/GI: Regular VTE ppx: Heparin Admission and Anticipated Discharge Date Admission Date: May 18, 2024 Supervising Physician Co-Signing Physician Notes I personally examined the patient and verified all patel points of history and exam, discussed case, and agree with decision making with Dr Rankin overall feeling better did have some eye pain last night but improved, nausea improved - notes he ate well for breakfast. oob better - worked with PT and feels like he did reasonably well. updated pt and and answered all questions to the best of my ability and to their satisfaction vitals noted nad heent nc at mmm L forehead crusted shingles lesions, as well as in medial bridge of nose; L eye conjunctival sl injected no ulceration or clouding, pt notes vision intact V1 shingles - IV acyclovir, steroid eye drops - seems to be improving hyponatremia - acutely appearing to be due to poor PO intake - which appears to have been due to n/v (which based on hx seems to have been valtrex side effect > side effect of illness). PO intake improving, suspect Na still low due to hypovolemia/ADH mediated water retention as well as still being solute down - continue to encourage PO intake, and continue NSS for both volume status and salt loading - reassess BMP Q4hrs still and titrate/etc based on rate of change weakness - hopefully will improve as Na improves. PT/OT eval and treat ongoing, did pretty well with PT today DVT proph - heparin SQ Subjective Patient seen at bedside - mnimal pain, denies N/V, better PO intake today. Denies changes in vision. Patient and confirm that they have outpatient ophtho follow up this Sunday. Review of Systems Review of Systems: as per HPI Physical Exam Physical Exam: General: Alert and oriented. No acute distress HEENT: left eye with conjunctival injection, increasing tearing Cardiac: Regular rate and rhythm, no murmurs appreciated Respiratory: Lungs clear to auscultation bilaterally, No increased work of breathing Skin: Left frontal, temporal region and tip of nose with scattered vesicular lesions in various stages of healing - most crusting over Results & Data Results & Data Vital Signs (Past 12 Hours) Vital Signs Temp Pulse Pulse Resp BP Pulse Ox O2 Del Method 05/20/24 03:37 36.7 C 70 18 172/98 H 97 Room Air 05/20/24 00:00 65 05/19/24 22:30 36.6 C 66 18 161/74 H 97 Room Air 05/19/24 19:35 36.6 C 64 18 173/92 H 96 Room Air Resident Activity Tracking Resident Involvement: Resident Care Provided Care Provided: Adult Hospital Medicine
[2024-05-20 06:54] LABS: BUN Creatinine Ratio 17.2 (10-20); Calcium 8.1 mg/dl (8.6-10.3); Creatinine Clr Calc Pharmacy 63.3 ml/min; Potassium 3.7 mmol/L (3.5-5.1)
[2024-05-20] MEDS: SODIUM CHLORIDE 0.9% 500 ML IV SCH ×3 (08:18→17:39)
[2024-05-20] MEDS: SODIUM CHLORIDE 1 GM TABLET PO SCH (09:42)
[2024-05-20 09:56] LABS: BUN Creatinine Ratio 17.8 (10-20); Calcium 7.9 mg/dl (8.6-10.3); Creatinine Clr Calc Pharmacy 61.2 ml/min; Potassium 3.4 mmol/L (3.5-5.1)
[2024-05-20] MEDS: POTASSIUM CHLORIDE CRTAB 20 MEQ TABCR PO STA (10:55)
--- NOTE | 2024-05-20 12:51 | Billing Data ---
Date of Service May 20, 2024 Coding Level of Care Code 06922 SUB INP/OBS CARE
[2024-05-20 13:06] LABS: BUN Creatinine Ratio 17.3 (10-20); Calcium 8.3 mg/dl (8.6-10.3); Creatinine Clr Calc Pharmacy 56.2 ml/min; Potassium 3.9 mmol/L (3.5-5.1)
[2024-05-20] MEDS: cefTRIAXone SODIUM 2,000 MG/50 ML BAG IV SCH (17:40)
[2024-05-20 18:13] LABS: BUN Creatinine Ratio 14.4 (10-20); Calcium 8.3 mg/dl (8.6-10.3)
[2024-05-20 22:09] LABS: BUN Creatinine Ratio 15.6 (10-20); Calcium 7.9 mg/dl (8.6-10.3); Creatinine Clr Calc Pharmacy 61.2 ml/min; Potassium 3.8 mmol/L (3.5-5.1)
[2024-05-21 01:14] LABS: Basophils # (auto) 0.02 K/uL (0.00-0.20); Basophils % (auto) 0.3 %; Eosinophils # (auto) 0.18 K/uL (0.00-0.50); Eosinophils % (auto) 2.7 %; Hematocrit (blood only) 33.6 % (42.0-52.0); Hemoglobin 11.6 g/dl (14.0-18.0); Immature Granulocytes # (auto) 0.02 K/uL (0.01-0.20); Immature Granulocytes % (auto) 0.3 %; Lymphocytes # (auto) 2.23 K/uL (1.20-3.40); Lymphocytes % (auto) 33.8 %; Mean Corpuscular Hemoglobin 26.2 pg (25.0-34.0); Mean Corpuscular Hgb Conc 34.5 g/dL (32.0-36.0); Mean Corpuscular Volume 75.8 fL (80.0-100.0); Mean Platelet Volume 9.3 fL (9.4-12.4); Monocytes % (auto) 13.7 %; Neutrophils # (auto) 3.24 K/uL (1.40-6.50); Neutrophils % (auto) 49.2 %; Platelet Count 209 K/uL (130-400); RDW Coefficient of Variation 11.9 % (11.5-14.5); RDW Standard Deviation 32.6 fL (36.4-46.3); Red Blood Count 4.43 M/uL (4.70-6.10); White Blood Count 6.59 K/ul (4.8-10.8)
[2024-05-21 01:30] LABS: BUN Creatinine Ratio 12.6 (10-20); Potassium 3.8 mmol/L (3.5-5.1)
[2024-05-21 06:55] LABS: BUN Creatinine Ratio 14.3 (10-20); Calcium 7.9 mg/dl (8.6-10.3); Creatinine Clr Calc Pharmacy 71.5 ml/min; Potassium 3.9 mmol/L (3.5-5.1)
--- NOTE | 2024-05-21 07:30 | Hospitalist Progress Note ---
Date of Service May 21, 2024 Assessment & Plan (1) Herpes zoster virus infection of face and ear nerves: (2) CAD (coronary artery disease): (3) Hyponatremia: (4) Hypothyroidism: (5) Benign prostatic hyperplasia with urinary obstruction: (6) Glaucoma: (7) Hyperlipidemia: Plan Herpes zoster left V1 distribution- Continue Acyclovir 700 mg IV every 8 hours Acetaminophen 1 g IV every 8 hours as needed for mild pain or fever Toradol 10 mg IV every 6 hours as needed for moderate pain. Of note, patient and request no use of narcotics Zofran 2 mg IV every 4 hours as needed for N/V Pantoprazole 40 mg IV daily Herpes Zoster Ophthalmicus: Pt started on prednisolone acetate 1% drops in left eye QID by outpatient ophthalmology, continue - outpatient ophthalmology Dr. Burt on Sunday Continue trifluridine 1 drop in left eye every 4 hours while awake Acute on chronic hyponatremia- Sodium 116 on admission - improved overnight with continuous fluids, most recently 126 Suspect hypovolemic hyponatremia, will continue NS @100mL/hour with adjustment based on labs Continue BMP Q4 hours, with further treatment as labs direct - goal correction max 12 mmol/L per 24 hours Salt tabs discontinued due to nausea Generalized Weakness: Likely secondary to hyponatremia, independent at baseline PT/OT evaluations completed 05/19 with recommendation for home - weakness today concerning for rapid deconditioning, will need to reassess into tomorrow. Continue inpatient PT/OT. CAD/hypertension- Continue aspirin, and clopidogrel Hold lisinopril FEN/GI: Regular VTE ppx: Heparin Admission and Anticipated Discharge Date Admission Date: May 18, 2024 Supervising Physician Co-Signing Physician Notes I personally examined the patient and verified all patel points of history and exam, discussed case, and agree with decision making with Dr Rankin feeling ok - just more weak. vitals noted nad heent nc at mmm L forehead crusted shingles lesions, as well as in medial bridge of nose; L eye conjunctival sl injected no ulceration or clouding - seems more clear than yesterday V1 shingles - IV acyclovir, steroid eye drops - improving hyponatremia - acutely appearing to be due to poor PO intake - which appears to have been due to n/v (which based on hx seems to have been valtrex side effect > side effect of illness). PO intake improving, suspect Na still low due to hypovolemia/ADH mediated water retention as well as still being solute down - continuing to slowly improve weakness - weaker today - suspect deconditioning - encourage activity and PO intake, PT/OT eval and treat DVT proph - heparin SQ Subjective Patient seen at bedside - minimal pain but some irritation towards medial aspect of left eye, denies N/V but notes feeling bloated as he has not had a bowel movement since beginning of sx. PO intake improving but still minimal appetite. Denies changes in vision. Review of Systems Review of Systems: as per HPI Physical Exam Physical Exam: General: Alert and oriented. No acute distress HEENT: left eye with conjunctival injection, increasing tearing Skin: Left frontal, temporal region and tip of nose with scattered vesicular lesions in various stages of healing - most crusting over Results & Data Results & Data Vital Signs (Past 12 Hours) Vital Signs Temp Pulse Pulse Resp BP Pulse Ox O2 Del Method 05/21/24 07:26 36.3 C L 79 18 165/82 H 98 Room Air 05/21/24 03:15 36.9 C 76 18 167/98 H 97 Room Air 05/20/24 22:39 36.7 C 76 20 165/86 H 97 Room Air 05/20/24 21:58 73 05/20/24 20:00 Room Air Resident Activity Tracking Resident Involvement: Resident Care Provided Care Provided: Adult Hospital Medicine
[2024-05-21] MEDS: SODIUM CHLORIDE 0.9% 500 ML IV SCH ×3 (08:54→19:34)
[2024-05-21] MEDS: SODIUM CHLORIDE 1 GM TABLET PO SCH (09:27)
[2024-05-21 09:46] LABS: BUN Creatinine Ratio 12.8 (10-20); Creatinine Clr Calc Pharmacy 64.1 ml/min; Potassium 3.5 mmol/L (3.5-5.1)
[2024-05-21 13:34] LABS: BUN Creatinine Ratio 13.3 (10-20); Calcium 8.2 mg/dl (8.6-10.3); Creatinine Clr Calc Pharmacy 61.2 ml/min; Potassium 3.9 mmol/L (3.5-5.1)
[2024-05-21] MEDS ORDERED: SODIUM CHLORIDE 0.9% 500 ML IV SCH (15:30)
--- NOTE | 2024-05-21 15:42 | Billing Data ---
Date of Service May 21, 2024 Coding Level of Care Code 18835 SUB INP/OBS CARE
[2024-05-21 17:46] LABS: BUN Creatinine Ratio 16.7 (10-20); Calcium 8.2 mg/dl (8.6-10.3); Creatinine Clr Calc Pharmacy 70.6 ml/min; Potassium 3.7 mmol/L (3.5-5.1)
[2024-05-21 22:12] LABS: BUN Creatinine Ratio 15.9 (10-20); Creatinine Clr Calc Pharmacy 62.6 ml/min; Potassium 3.8 mmol/L (3.5-5.1)
[2024-05-21] MEDS: DOCUSATE SODIUM 100 MG CAP PO PRN (22:19)
[2024-05-22 01:31] LABS: BUN Creatinine Ratio 14.6 (10-20); Creatinine Clr Calc Pharmacy 67.2 ml/min; Potassium 3.7 mmol/L (3.5-5.1)
[2024-05-22] MEDS: ACETAMINOPHEN 1,000 MG/100 ML VIAL IV PRN (04:28)
--- NOTE | 2024-05-22 05:14 | Electrocardiogram Report ---
Test Reason : Blood Pressure : */* mmHG Vent. Rate : 63 BPM Atrial Rate : 63 BPM P-R Int : 174 ms QRS Dur : 92 ms QT Int : 422 ms P-R-T Axes : 45 28 58 degrees QTcB Int : 431 ms Normal sinus rhythm Normal ECG When compared with ECG of 09-Nov-2022 05:57, Premature atrial complexes are no longer Present Confirmed by Tayo Edgar ([id number]) on 05/22/2024 5:14:21 AM Referred By: Confirmed By: Tayo Edgar
[2024-05-22 07:10] LABS: BUN Creatinine Ratio 14.3 (10-20); Creatinine Clr Calc Pharmacy 71.5 ml/min; Potassium 3.7 mmol/L (3.5-5.1)
--- NOTE | 2024-05-22 07:30 | Hospitalist Progress Note ---
Date of Service May 22, 2024 Assessment & Plan (1) Herpes zoster virus infection of face and ear nerves: (2) CAD (coronary artery disease): (3) Hyponatremia: (4) Hypothyroidism: (5) Benign prostatic hyperplasia with urinary obstruction: (6) Glaucoma: (7) Hyperlipidemia: Plan Herpes zoster left V1 distribution- Continue Acyclovir 700 mg IV every 8 hours Acetaminophen 1 g IV every 8 hours as needed for mild pain or fever Toradol 10 mg IV every 6 hours as needed for moderate pain. Of note, patient and request no use of narcotics Zofran 2 mg IV every 4 hours as needed for N/V Pantoprazole 40 mg IV daily Herpes Zoster Ophthalmicus: Pt started on prednisolone acetate 1% drops in left eye QID by outpatient ophthalmology, continue - outpatient ophthalmology Dr. Burt on Sunday Continue trifluridine 1 drop in left eye every 4 hours while awake Acute on chronic hyponatremia- Sodium 116 on admission - improved overnight with continuous fluids, most recently 126 Suspect hypovolemic hyponatremia, will continue NS @100mL/hour with adjustment based on labs Continue BMP Q4 hours, with further treatment as labs direct - goal correction max 12 mmol/L per 24 hours Salt tabs discontinued due to nausea Generalized Weakness: Likely secondary to hyponatremia, independent at baseline PT/OT evaluations completed 05/19 with recommendation for home - weakness today concerning for rapid deconditioning, will need to reassess into tomorrow. Continue inpatient PT/OT. CAD/hypertension- Continue aspirin, and clopidogrel Hold lisinopril FEN/GI: Regular VTE ppx: Heparin Admission and Anticipated Discharge Date Admission Date: May 18, 2024 Subjective Patient seen at bedside - minimal pain but some irritation towards medial aspect of left eye, denies N/V but notes feeling bloated as he has not had a bowel movement since beginning of sx. PO intake improving but still minimal appetite. Denies changes in vision. Review of Systems Review of Systems: as per HPI Physical Exam Physical Exam: General: Alert and oriented. No acute distress HEENT: left eye with conjunctival injection, increasing tearing Skin: Left frontal, temporal region and tip of nose with scattered vesicular lesions in various stages of healing - most crusting over Results & Data Results & Data Vital Signs (Past 12 Hours) Vital Signs Temp Pulse Pulse Resp BP Pulse Ox O2 Del Method 05/22/24 03:21 37.0 C 70 16 161/90 H 97 Room Air 05/21/24 22:22 36.6 C 76 18 168/82 H 98 Room Air 05/21/24 21:52 72 05/21/24 19:45 Room Air
[2024-05-22] MEDS: PANTOprazole 40 MG TAB PO SCH (09:08)
[2024-05-22] MEDS: POLYETHYLENE (MIRALAX) 17 GM PACK PO SCH (09:09)
[2024-05-22 10:07] LABS: BUN Creatinine Ratio 12.9 (10-20); Creatinine Clr Calc Pharmacy 64.8 ml/min; Potassium 3.4 mmol/L (3.5-5.1)
[2024-05-22] MEDS: POTASSIUM CHLORIDE CRTAB 20 MEQ TABCR PO STA (11:13)
[2024-05-22] MEDS: CEFDINIR 300 MG CAP PO SCH (11:13)
[2024-05-22] MEDS: SODIUM CHLORIDE 0.9% 500 ML IV SCH (11:14)
[2024-05-22 11:52] VITALS: PULSE 64; RESP 16; TEMP 97.5; O2SAT 97
[2024-05-22 13:05] LABS: BUN Creatinine Ratio 13.3 (10-20); Calcium 8.8 mg/dl (8.6-10.3); Creatinine Clr Calc Pharmacy 61.2 ml/min; Potassium 3.8 mmol/L (3.5-5.1)
[2024-05-22 15:47] VITALS: BP 172/98
--- NOTE | 2024-05-22 16:31 | Discharge Summary ---
Date of Service May 22, 2024 Admission HPI Per Admitting Provider The patient is an 79-year-old male with a past medical history including CAD, hyponatremia, BPH with LUTS, hypothyroidism, non-Hodgkin's lymphoma, hyperlipidemia, hypertension, and glaucoma. He presents to the emergency department with main complaint of severe nausea secondary to a painful rash over his left frontal and temporal area, above his left eye as noted above. Significant laboratory abnormalities including sodium of 116, with most recent on 02/18/2024 of 130. COVID, flu and RSV testing are negative Admission Exam Per Admitting Provider The patient is awake, alert and oriented 3, and in moderate distress secondary to rash HEENT--PERRL, EOMI, mucous membranes and oropharynx dry. rash with lesions in various stages of irritation and scabbing on left forehead and temporal area, including tip of nose Neck--supple. No JVD. No bruits. Thyroid normal, trachea midline, no adenopathy. Heart--normal S1 and S2. No murmurs, rubs or gallops. Lungs--clear bilaterally, no respiratory distress, no accessory muscle use. Abdomen--normal bowel sounds and soft. Nontender. Nondistended, no hernias or masses, no organomegaly. Extremities--no cyanosis or clubbing. No edema. There are good distal pulses b/l. Dermatologic--rash as noted above. Neurologic--cranial nerves II through XII grossly intact. Rheumatologic--normal range of motion. Psychiatric--normal affect. Principal Diagnosis V1 Shingles, Hyponatremia Discharge Exam General: Alert and oriented. No acute distress HEENT: left eye with mild conjunctival injection but without ulceration or clouding Skin: Left frontal, temporal region and tip of nose with scattered vesicular lesions, most crusted over Discharge Data Allergies Allergy/AdvReac Type Severity Reaction Status Date / Time No Known Allergies Allergy Unknown Verified 05/16/24 14:20 Consultations 05/18/24 22:04 ED Decision to Admit Stat Hospital Course (1) Herpes zoster virus infection of face and ear nerves: (2) CAD (coronary artery disease): (3) Hyponatremia: (4) Hypothyroidism: (5) Benign prostatic hyperplasia with urinary obstruction: (6) Glaucoma: (7) Hyperlipidemia: Plan Herpes zoster left V1 distribution- Due to Valtrex intolerance d/t associated N/V, will continue Acyclovir 800mg PO 5 times daily through 05/25 Herpes Zoster Ophthalmicus: Continue prednisolone acetate 1% drops in left eye QID, patient scheduled to follow up with ethernet network architect, Dr. Burt Acute on chronic hyponatremia- Sodium 116 on admission - suspect hypovolemic hyponatremia in the setting of poor PO intake due to N/V associated with Valtrex - gradually improved with near continuous IV NS, up to 126 at time of discharge compared to baseline ~130. Outpatient BMP ordered for 05/26/24, follow results with outpatient PCP. Generalized Weakness: Likely secondary to hyponatremia, independent at baseline PT/OT evaluations completed 05/20 with recommendation for home though some degree of deconditioning apparent. Recommend gradual activity progression as tolerated with walker use as needed. UTI: Urine culture +Morganella morganii, susceptible to Ceftriaxone. Finish PO Cefdinir, BID through 05/26 CAD/hypertension- Home meds Total Time Total Time Spent Total Time Spent (In Minutes): see attending attestation Discharge Plan Discharge Items Patient Disposition: Home - Self-Care Reason For Visit: HYPONATREMIA, SHINGLES LEFT DISTRIB, N/V Discharge Diagnosis: Hyponatremia, V1 shingles Activity: As commented below Activity Comment: Careful progression of activity as tolerated -recommend walker initially Non-emergency contact: Primary Care Provider Call non-emergency contact if: you have any medication questions and your symptoms worsen Follow-up/Referrals: Michael Vasquez, [Primary Care Provider] - 05/30/24 3:00 pm (Hospital follow up scheduled May 30 at 3:00 with Betty Yap at the [facility] location.) Diet: Regular Ambulatory Orders: Basic Metabolic Panel (Routine) Timeframe: 1 Day Location: Determined by Patient Ordered By: Conner Gonzalez Attending Provider Instructions: You were admitted due to shingles affecting the face and eye, as well as for hyponatremia. Following discharge, please continue to do you best to eat and drink adequately, salty foods are encouraged along with goal of consuming at least 60 ounces of water daily. To ensure that your electrolytes are continuing to improve, please have your labs drawn 05/23 - the results will be sent to your PCP. Please be cautious while walking, I would recommend using a walker until you feel a bit more steady on your feet. Please continue to use the steroid eyedrops until you follow up with Dr. Burt Medications: Acyclovir: Please take one 800mg tab 5 times daily through the end of the day on 05/25. Please aim to take 2 more doses today, 05/22 after discharge. Cefdinir: This medication is to treat your urinary tract infection - please take 1 tab twice daily through 05/26, with the first dose starting the evening of 05/22. Pending Studies at Discharge: No Stand-Alone Forms: My [facility], Smoking Cessation Medications and DC Order Prescriptions: New cefdinir 300 mg Capsule 300 mg PO BID Qty: 9 0RF acyclovir 800 mg tablet 800 mg PO 5XD Qty: 17 0RF Rx Instructions: space evenly during waking hours Continued lisinopril 10 mg tablet 10 mg PO DAILY Qty: 90 3RF rosuvastatin 20 mg tablet 20 mg PO DAILY Qty: 90 3RF clopidogrel 75 mg tablet 75 mg PO DAILY Qty: 90 3RF biotin 5 mg capsule 5 mg PO DAILY cholecalciferol (vitamin D3) 125 mcg (5,000 unit) capsule 125 mcg PO DAILY tadalafil [Cialis] 20 mg tablet 20 mg PO DAILY PRN (Reason: sexual activity) Qty: 30 0RF Rx Instructions: administer approximately 30min before sexual activity; do not use more than 1 dose per 24hrs multivitamin Tablet 1 tab PO DAILY aspirin 81 mg Tablet,Delayed Release (Dr/Ec) 81 mg PO QAM Qty: 30 5RF Rx Instructions: purchase [id number] nitroglycerin 0.4 mg tablet, sublingual 0.4 mg sublingual Q5M PRN (Reason: chest pain) Qty: 1 0RF Rx Instructions: maximum 3 doses in 15 minutes. levothyroxine 75 mcg tablet 75 mcg PO DAILYBB bimatoprost 0.03 % drops 1 drp OPL HS prednisolone acetate 1 % Drops,Suspension 1 drp OPL QID timolol maleate 0.5 % drops 1 drp OPL QAM Discharge Orders: Discharge Order (Routine); Ordered 05/22/24 Ordered By: Conner Rankin Admission Data Admit Date/Time: 05/18/24 23:01 Attending Provider: Daniel Welch Admit Provider: Emigdio Wright Primary Care Provider: Michael Vasquez Other Providers: Emigdio Wright Other Interventions: Discharge Summary Assessment (RN) Last Done: 05/22/24 15:45 Supervising Physician Co-Signing Physician Notes I personally examined the patient and verified all patel points of history and exam, discussed case, and agree with decision making with Dr Rankin feeling ok - doing a bit better, feeling up to going home vitals noted nad heent nc at mmm L forehead crusted shingles lesions, as well as in medial bridge of nose; L eye conjunctival sl injected no ulceration or clouding - seems more clear than yesterday V1 shingles - IV acyclovir, steroid eye drops - improving. 7 days total acyclovir hyponatremia - acutely appearing to be due to poor PO intake - which appears to have been due to n/v (which based on hx seems to have been valtrex side effect > side effect of illness). PO intake improving, sodium continuing to slowly improve - safe/stable to go home weakness - safe for home DVT proph - heparin SQ Resident Activity Tracking Resident Involvement: Resident Care Provided Care Provided: Adult Hospital Medicine
--- NOTE | 2024-05-22 18:04 | Billing Data ---
Date of Service May 22, 2024 Coding Level of Care Code 23308 IN/OBS DISCH 30 MIN/LESS
== END 2024-05-22 15:47 | disposition home or self-care (01) | DRG 74 ==
LOC: ED 19:09 → 2E 23:01 → SUATTDRO 23:01 → 2E 05-19 00:13

== ENCOUNTER 2024-05-23 17:05 | Inpatient (IN) ==
--- NOTE | 2024-05-23 18:15 | Emergency Department Note ---
Impression & Plan Syncope, Acute hyponatremia ED Provider Note NAME: GORDON VERAS AGE: 79 SEX: M : 1945 ARRIVES VIA: Ambulance INFORMANT: Patient ED PROVIDER(S): Daniel Retana DO CHIEF COMPLAINT: Syncope HPI: Patient is an 79-year-old male with a past medical history of CAD, BPH and hypertension who was just discharged following a several day stay at [facility] for zoster involving the face with hyponatremia. Upon being discharged to home yesterday he was in the toilet and had a syncopal episode that lasted for 10 minutes. Afterwards when he woke up and he was confused. There was no shaking. He denies any head pain or neck pain. No chest pain or shortness of breath. No belly pain. He does admit to trying to have a bowel movement at that time. No dysuria, urgency, or frequency. ADDITIONAL HISTORY OBTAINED: Per HPI Chronic Medical/Social Conditions Affecting Care: Per HPI PAST MEDICAL HISTORY:See Below PAST SURGICAL HISTORY:See Below FAMILY HISTORY:See Below SOCIAL HISTORY:See Below HOME MEDICATIONS:See Below ALLERGIES:See Below VITALS:See Below PHYSICAL EXAMINATION: GENERAL: Sitting up in bed, alert, well appearing, well nourished, no distress, non-toxic EYE EXAM: normal conjunctiva. PERRL and EOM's grossly intact. OROPHARYNX: no exudate, no erythema, lips, buccal mucosa, and tongue normal and mucous membranes are moist NECK: supple, no nuchal rigidity, no adenopathy, non-tender LUNGS: Clear to auscultation. Normal chest wall mechanics HEART: no murmurs, S1 normal and S2 normal ABDOMEN: abdomen soft, non-tender, normo-active bowel sounds, no masses, no rebound or guarding. BACK: Back is symmetrical on inspection and there is no deformity, no midline tenderness, no CVA tenderness. SKIN: no rashes and no bruising UPPER EXTREMITIES: upper extremities are grossly normal. LOWER EXTREMITIES: No pitting edema. NEURO EXAM: Normal sensorium, cranial nerves II-XII intact, normal speech, no weakness of arms, no weakness of legs. No drift. Finger to nose intact. Gross sensation intact. MEDICAL DECISION MAKING: Patient is an 79-year-old male who presents to the ER with past medical history of CAD for syncopal episode following being discharged yesterday. IV was established medicos obtained. Labs show mild leukocytosis of 17,000. No significant anemia. BMP with a hyponatremia at 123. LFTs bilirubin and troponin was negative. Lipase was normal. Chest x-ray was clean. Patient was updated bedside discussed case with the hospitalist for further evaluation management treatment due to the hyponatremia 123 down from external records/recent admission at 127. Consults/Care Managements Discussions: Per MDM Triage Nursing notes reviewed. Limited review of prior medical records performed Vital Signs: reviewed and remarkable for HTN Differential diagnosis: Differential diagnosis includes etiologies such as vasovagal event, infection, hypoglycemia, electrolyte abnormalities, cardiac sources, intracerebral event, toxicologic, neurologic, as well as others were entertained. ER treatment provided: See below Diagnostics interpreted by me include EKG and cardiac monitoring as listed below: -Cardiac Monitoring: An order was placed for continuous cardiac monitoring. The monitor shows a rate of 70 with sinus rhythm. -ECG: none -Laboratory studies:Interpreted by me as stated above in MDM and shown below. Imaging studies: Xrays: As interpreted by me: Portable AP upright 1 view of the chest shows no focal infiltrate CTs show: none Procedures:none Critical Care: None Past Med/Surg History Problem List (Updated 05/23/24 @ 23:16 by Daniel Reatna DO) Acute hyponatremia (Acute) Syncope (Acute) Fatigue Herpes zoster virus infection of face and ear nerves (Acute) Erectile dysfunction Prediabetes Microcytic anemia CAD (coronary artery disease) Hyponatremia (Acute) Chronic prostatitis BPH (benign prostatic hyperplasia) Hypothyroidism (Acute) Non Hodgkin's lymphoma (Chronic) Nephrolithiasis (Chronic) Hyperlipidemia (Chronic) Benign prostatic hyperplasia with urinary obstruction (Chronic) Hypertension (Chronic) Anemia (Chronic) Elevated prostate specific antigen (PSA) (Chronic) Glaucoma (Chronic) Leukopenia (Chronic) Multiple nevi (Chronic) Medical History Gross hematuria Cloudy urine ST elevation (STEMI) myocardial infarction STEMI (ST elevation myocardial infarction) Surgical History Status post cataract extraction History of tonsillectomy History of repair of rotator cuff History of lithotripsy History of colonoscopy Status post biopsy of skin History of lymph node biopsy Family History Father Stroke syndrome Stroke Mother Hypertension Family history of cervical cancer Ovarian cancer Sister Hypertension Aunt Breast cancer Other Cancer Heart disease Denies family history of Prostate cancer Myocardial infarction Lung cancer Colorectal cancer Social History Smoking Status: Never smoker Second Hand Exposure: No; Do You Dip or Chew Tobacco: No; Hx Alcohol Use: No Hx Substance Use: No Preferred Language: [place] Communication Ability: Effective Visual Impairment: Limited Hearing Ability: Normal Operations Program Manager Required: No Beliefs That Will Affect Care: None marital status: Current Living Situation: Spouse Current Living Situation Comment: home w/ 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 Children do You have: 1 Feels Safe at Home: Yes Childhood Exposure to Second-Hand Smoke: Yes (father smoked ) caffeine: Yes (drinks 2-3 cups coffee daily ) Dental Care, Regularly: Yes Physical Activity Frequency: 5-6 Times per Week Seatbelt Use: always Sunscreen Use: No Assistive Devices: None Allergies Allergies Allergy/AdvReac Type Severity Reaction Status Date / Time No Known Allergies Allergy Unknown Verified 05/16/24 14:20 Home Meds Home Medications Medication Instructions Recorded Confirmed biotin 5 mg capsule 5 mg PO DAILY 11/10/19 05/18/24 cholecalciferol (vitamin D3) 125 125 mcg PO DAILY 11/10/19 05/18/24 mcg (5,000 unit) capsule multivitamin 1 tab PO DAILY 11/08/22 05/18/24 bimatoprost 0.03 % eye drops 1 drp OPL HS 05/18/24 05/18/24 levothyroxine 75 mcg tablet 75 mcg PO DAILYBB 05/18/24 05/18/24 prednisolone acetate 1 % eye 1 drp OPL QID 05/18/24 05/18/24 drops,suspension timolol maleate 0.5 % eye drops 1 drp OPL QAM 05/18/24 05/18/24 Previous Rx's Medication Instructions Recorded aspirin 81 mg tablet,delayed 81 mg PO QAM #30 tabs 11/11/22 release nitroglycerin 0.4 mg sublingual 0.4 mg sublingual Q5M PRN chest 11/11/22 tablet pain #1 btl lisinopril 10 mg tablet 10 mg PO DAILY #90 tabs 06/12/23 clopidogrel 75 mg tablet 75 mg PO DAILY #90 tabs 11/27/23 tadalafil 20 mg tablet (Cialis) 20 mg PO DAILY PRN sexual activity 12/13/23 #30 tabs rosuvastatin 20 mg tablet 20 mg PO DAILY #90 tabs 12/25/23 acyclovir 800 mg tablet 800 mg PO 5XD #17 tabs 05/22/24 cefdinir 300 mg capsule 300 mg PO BID #9 caps 05/22/24 Results & Data (ED) Vital Signs Vital Signs - 24 hr 05/23/24 17:15 05/23/24 17:20 05/23/24 17:20 Temperature 36.8 C Temperature Source Oral Pulse Rate 67 66 Pulse Rate [Apical] Respiratory Rate 16 Respiratory Effort / Characteristics Respiratory Depth Blood Pressure 202/99 H Blood Pressure [Right Arm] Blood Pressure Mean 133 Blood Pressure Mean [Right Arm] Blood Pressure Position [Right Arm] Pulse Oximetry 99 Oxygen Delivery Method Room Air Room Air Sepsis Recent Fever Within 48 Hours No Sepsis New/Unexplained Change in Mental Status No Sepsis Action Taken by Nursing No Action Required 05/23/24 18:00 05/23/24 19:00 Temperature Temperature Source Pulse Rate Pulse Rate [Apical] 69 Respiratory Rate 21 Respiratory Effort / Characteristics Non-Labored Respiratory Depth Normal Blood Pressure Blood Pressure [Right Arm] 150/87 H Blood Pressure Mean Blood Pressure Mean [Right Arm] 108 Blood Pressure Position [Right Arm] Lying Pulse Oximetry 97 Oxygen Delivery Method Room Air Room Air Sepsis Recent Fever Within 48 Hours Sepsis New/Unexplained Change in Mental Status Sepsis Action Taken by Nursing Laboratory Data 05/23/24 17:21 05/23/24 17:21 Lab Results 05/23/24 Range/Units 17:21 WBC 17.14 H (4.8-10.8) K/ul RBC 5.10 (4.70-6.10) M/uL Hgb 13.8 L (14.0-18.0) g/dl Hct 39.0 L (42.0-52.0) % MCV 76.5 L (80.0-100.0) fL MCH 27.1 (25.0-34.0) pg MCHC 35.4 (32.0-36.0) g/dL RDW Std Deviation 33.5 L (36.4-46.3) fL RDW Coeff of John 12.4 (11.5-14.5) % Plt Count 295 (130-400) K/uL MPV 9.3 L (9.4-12.4) fL Immature Gran % (Auto) 0.4 % Neut % (Auto) 78.9 % Lymph % (Auto) 13.4 % [place] % (Auto) 5.9 % Eos % (Auto) 1.3 % Baso % (Auto) 0.1 % Neut # (Auto) 13.52 H (1.40-6.50) K/uL Lymph # (Auto) 2.29 (1.20-3.40) K/uL [place] # (Auto) 1.01 H (0.11-0.59) K/uL Eos # (Auto) 0.23 (0.00-0.50) K/uL Baso # (Auto) 0.02 (0.00-0.20) K/uL Immature Gran # (Auto) 0.07 (0.01-0.20) K/uL Sodium 123 L (136-145) mmol/L Potassium 4.2 (3.5-5.1) mmol/L Chloride 90 L (98-107) mmol/L Carbon Dioxide 25 (21-32) mmol/L Anion Gap 8 (3-11) BUN 13 (6-23) mg/dl Creatinine 0.96 (0.6-1.4) mg/dl Est Cr Clr Drug Dosing 55.8 ml/min eGFR 79.90 BUN/Creatinine Ratio 13.5 (10-20) Glucose 138 H (70-99(Fasting)) mg/dl Calcium 9.7 (8.6-10.3) mg/dl Total Bilirubin 0.6 (0.2-1.0) mg/dl AST 33 (13-39) U/L ALT 33 (7-52) U/L Alkaline Phosphatase 53 (34-104) U/L Troponin I High Sens 6.4 (0-20) pg/ml Total Protein 6.9 (6.0-8.3) gm/dl Albumin 4.4 (3.4-5.0) gm/dl Globulin 2.5 (2.5-4.0) gm/dl Albumin/Globulin Ratio 1.8 (0.9-2) Lipase 32 (11-82) U/L Administered Medications Acyclovir (Acyclovir 400 Mg Tab) 800 mg PO [id number] NAHUM Stop: 05/30/24 21:44 Last Admin: 05/23/24 22:38 Dose: 800 mg Documented By: BRANDEN Cefdinir (Cefdinir 300 Mg Cap) 300 mg PO BID NAHUM; Protocol Stop: 06/02/24 21:29 Last Admin: 05/23/24 22:38 Dose: 300 mg Documented By: BRANDEN Discontinued Medications Bimatoprost (Bimatoprost 0.01% Op Soln 2.5 Ml Btl) 1 drops OPL HS NAHUM Stop: 06/22/24 21:29 Last Admin: 05/23/24 22:51 Dose: Not Given Documented By: BRANDEN Sodium Chloride (Hypertonic Saline 3%) 150 mls @ 450 mls/hr IV .Q20M ONE; Protocol Stop: 05/23/24 20:08 Last Infusion: 05/23/24 21:11 Dose: Infused Documented By: OLVIN Co-signed By: ANTIONETTE Admin: 05/23/24 20:27 Dose: 450 mls/hr Documented By: OLVIN Co-signed By: ANTIONETTE Sodium Chloride (Sodium Chloride 1 Gm Tablet) 1 gm PO NOW STA Stop: 05/23/24 19:50 Last Admin: 05/23/24 21:33 Dose: 1 gm Documented By: BRANDEN Trifluridine (Trifluridine 1% 7.5 Ml Btl) 1 drops OPL Q4HWA NAHUM Stop: 06/22/24 21:44 Last Admin: 05/23/24 22:51 Dose: Not Given Documented By: BRANDEN Imaging Data Radiologist's Impression: Chest X-Ray 05/23/24 18:00 XR chest 1V portable CLINICAL HISTORY: Chest pain, nonspecific COMPARISON STUDY: Chest CT January 08, 2016. Chest radiograph November 08, 2022. FINDINGS: Lung volumes are normal. Lungs are clear. There is no pneumothorax or pleural effusion. Cardiac size is normal. Mediastinal contours are normal. There is no evidence for pulmonary edema. IMPRESSION: No acute cardiopulmonary findings. No change in appearance of the chest. ACT 112: Negative or not required by law. Electronically signed by: Taras Cr M.D. 05/23/2024 6:54 PM Discharge Plan Visit Data Chief Complaint: Syncope Stated Complaint: SYNCOPE, WEAK, LETHARGIC ED Provider: Daniel Retana Discharge Problem: Syncope, Acute hyponatremia Patient Disposition: Admitted As Inpatient Discharge Instructions Interventions: ED Discharge Assessment Last Done: 05/23/24 20:42 Discharge Problem: Syncope Qualifiers: Syncope type: unspecified Qualified Code(s): R55 - Syncope and collapse
[2024-05-23 18:24] LABS: Basophils # (auto) 0.02 K/uL (0.00-0.20); Basophils % (auto) 0.1 %; Eosinophils # (auto) 0.23 K/uL (0.00-0.50); Eosinophils % (auto) 1.3 %; Hemoglobin 13.8 g/dl (14.0-18.0); Immature Granulocytes # (auto) 0.07 K/uL (0.01-0.20); Immature Granulocytes % (auto) 0.4 %; Lymphocytes # (auto) 2.29 K/uL (1.20-3.40); Lymphocytes % (auto) 13.4 %; Mean Corpuscular Hemoglobin 27.1 pg (25.0-34.0); Mean Corpuscular Hgb Conc 35.4 g/dL (32.0-36.0); Mean Corpuscular Volume 76.5 fL (80.0-100.0); Mean Platelet Volume 9.3 fL (9.4-12.4); Monocytes # (auto) 1.01 K/uL (0.11-0.59); Monocytes % (auto) 5.9 %; Neutrophils # (auto) 13.52 K/uL (1.40-6.50); Neutrophils % (auto) 78.9 %; Platelet Count 295 K/uL (130-400); RDW Coefficient of Variation 12.4 % (11.5-14.5); RDW Standard Deviation 33.5 fL (36.4-46.3); White Blood Count 17.14 K/ul (4.8-10.8)
[2024-05-23 18:42] LABS: Albumin Globulin Ratio 1.8 (0.9-2); Albumin Level 4.4 gm/dl (3.4-5.0); BUN Creatinine Ratio 13.5 (10-20); Bilirubin,Total 0.6 mg/dl (0.2-1.0); Calcium 9.7 mg/dl (8.6-10.3); Creatinine Clr Calc Pharmacy 55.8 ml/min; Globulin 2.5 gm/dl (2.5-4.0); Potassium 4.2 mmol/L (3.5-5.1); Total Protein 6.9 gm/dl (6.0-8.3)
[2024-05-23 18:47] LABS: Troponin I High Sensitivity 6.4 pg/ml (0-20)
--- NOTE | 2024-05-23 18:56 | XRay Report ---
XR chest 1V portable CLINICAL HISTORY: Chest pain, nonspecific COMPARISON STUDY: Chest CT January 08, 2016. Chest radiograph November 08, 2022. FINDINGS: Lung volumes are normal. Lungs are clear. There is no pneumothorax or pleural effusion. Car diac size is normal. Mediastinal contours are normal. There is no evidence for pulmonary edema. IMPRESSION: No acute cardiopulmonary findings. No change in appearance of the chest. ACT 112: Negative or not required by law. Electronically signed by: Taras Cr M.D. 05/23/2024 6:54 PM
[2024-05-23] MEDS ORDERED: STAT IV/IM STA ×2 (19:49→23:45)
--- NOTE | 2024-05-23 20:09 | History & Physical Report ---
Date of Service May 23, 2024 Assessment & Plan (1) Hyponatremia: (2) Herpes zoster virus infection of face and ear nerves: (3) CAD (coronary artery disease): (4) Benign prostatic hyperplasia with urinary obstruction: (5) Fatigue: Plan Hyponatremia- Sodium upon discharge on 05/22 was 126, and follow-up this afternoon at 12:30 PM was 127. 4-1/2 hours later, in the ED this evening, sodium is decreased to 123. Patient reports he drinks some juice, because he was concerned about having a bowel movement, for which he also took a Dulcolax suppository. Placed on sodium chloride tablets 1 g p.o. twice daily, with first dose tonight Given 150 mL of 3% hypertonic saline BMP every 4 hours Fluid restriction of 1500 mL Near syncopal episode- Likely combination of low sodium and Valsalva associated with attempted bowel movements with little oral intake The patient will be admitted to telemetry for serial cardiac enzymes, serial EKG's, cardiac rhythm monitoring and a 2-D echocardiogram with Dopplers. Herpes zoster left V1 distribution- Rash is significantly improving, but still some pain issues Continue acyclovir 800 mg p.o. 5 times daily Stop topical prednisolone eyedrops Resume trifluridine 1 drop in left eye every 4 hours while awake Patient to follow-up in outpatient setting with ophthalmology CAD/hypertension- Continue aspirin, clopidogrel Hold lisinopril History of Present Illness Chief Complaint: The patient presents to the emergency department with a near syncopal episode, that his reports occurred while he was on the toilet, and did not respond appropriately to her for about 10 minutes Primary Care Provider: Michael Vasquez DO The patient is an 79-year-old male with a past history including CAD, hyponatremia, chronic prostatitis, BPH that UTS, hypothyroidism, non-Hodgkin's lymphoma, hyperlipidemia, hypertension, anemia and glaucoma. He was most recently admitted to [facility] 05/18-05/18/2024 for acute on chronic hyponatremia and herpes zoster left V1 distribution. His oral intake has still been low, but liquids and solids. His sodium upon recheck at 1250 today was 127, and now 4 and half hours later, is down to 123. He reports that he drank some juice this afternoon, but denies any excessive intake. Allergies Allergy/AdvReac Type Severity Reaction Status Date / Time No Known Allergies Allergy Unknown Verified 05/16/24 14:20 Home Medications Medication Instructions Recorded Confirmed Type biotin 5 mg capsule 5 mg PO DAILY 11/10/19 05/18/24 History cholecalciferol (vitamin D3) 125 125 mcg PO DAILY 11/10/19 05/18/24 History mcg (5,000 unit) capsule multivitamin 1 tab PO DAILY 11/08/22 05/18/24 History aspirin 81 mg tablet,delayed 81 mg PO QAM #30 tabs 11/11/22 05/18/24 Rx release nitroglycerin 0.4 mg sublingual 0.4 mg sublingual Q5M PRN chest 11/11/22 05/18/24 Rx tablet pain #1 btl lisinopril 10 mg tablet 10 mg PO DAILY #90 tabs 06/12/23 05/18/24 Rx clopidogrel 75 mg tablet 75 mg PO DAILY #90 tabs 11/27/23 05/18/24 Rx tadalafil 20 mg tablet (Cialis) 20 mg PO DAILY PRN sexual activity 12/13/23 05/18/24 Rx #30 tabs rosuvastatin 20 mg tablet 20 mg PO DAILY #90 tabs 12/25/23 05/18/24 Rx bimatoprost 0.03 % eye drops 1 drp OPL HS 05/18/24 05/18/24 History levothyroxine 75 mcg tablet 75 mcg PO DAILYBB 05/18/24 05/18/24 History prednisolone acetate 1 % eye 1 drp OPL QID 05/18/24 05/18/24 History drops,suspension timolol maleate 0.5 % eye drops 1 drp OPL QAM 05/18/24 05/18/24 History acyclovir 800 mg tablet 800 mg PO 5XD #17 tabs 05/22/24 Rx cefdinir 300 mg capsule 300 mg PO BID #9 caps 05/22/24 Rx Past Med/Surg History Problem List (Updated 05/23/24 @ 21:16 by Emigdio Wright MD) Fatigue Herpes zoster virus infection of face and ear nerves (Acute) Erectile dysfunction Prediabetes Microcytic anemia CAD (coronary artery disease) Hyponatremia (Acute) Chronic prostatitis BPH (benign prostatic hyperplasia) Hypothyroidism (Acute) Non Hodgkin's lymphoma (Chronic) Nephrolithiasis (Chronic) Hyperlipidemia (Chronic) Benign prostatic hyperplasia with urinary obstruction (Chronic) Hypertension (Chronic) Anemia (Chronic) Elevated prostate specific antigen (PSA) (Chronic) Glaucoma (Chronic) Leukopenia (Chronic) Multiple nevi (Chronic) Medical History Gross hematuria Cloudy urine ST elevation (STEMI) myocardial infarction STEMI (ST elevation myocardial infarction) Surgical History Status post cataract extraction History of tonsillectomy History of repair of rotator cuff History of lithotripsy History of colonoscopy Status post biopsy of skin History of lymph node biopsy Family History Father Stroke syndrome Stroke Mother Hypertension Family history of cervical cancer Ovarian cancer Sister Hypertension Aunt Breast cancer Other Cancer Heart disease Denies family history of Prostate cancer Myocardial infarction Lung cancer Colorectal cancer Social History Smoking Status: Never smoker Second Hand Exposure: No; Do You Dip or Chew Tobacco: No; Hx Alcohol Use: No Hx Substance Use: No Preferred Language: [place] Citizen Communication Ability: Effective Visual Impairment: Limited Hearing Ability: Normal Torch Brazer Required: No Beliefs That Will Affect Care: None marital status: Current Living Situation: Spouse Current Living Situation Comment: home w/ 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 Children do You have: 1 Feels Safe at Home: Yes Childhood Exposure to Second-Hand Smoke: Yes (father smoked ) caffeine: Yes (drinks 2-3 cups coffee daily ) Dental Care, Regularly: Yes Physical Activity Frequency: 5-6 Times per Week Seatbelt Use: always Sunscreen Use: No Assistive Devices: None Review of Systems Review of Systems: The patient denies chest pain, palpitations, shortness of breath, dyspnea on exertion, cough, lower extremity swelling, sore throat, fevers, chills, sweats, nausea, vomiting, blood in urine or stool, dysuria, urinary frequency or urgency, abnormal bruising or bleeding, focal weakness, numbness or tingling in arms or legs, generalized arthralgias or myalgias, back or neck pain, or night sweats. The review of systems is otherwise negative other than for that already noted above, and at least 10 systems have been reviewed. Physical Exam Physical Exam: The patient is awake, alert and oriented 3, well developed and well nourished, normocephalic and atraumatic, lying in bed and in no acute distress. HEENT--PERRL, EOMI, mucous membranes and oropharynx dry. Resolving left V1 distribution shingles. Neck--supple. No JVD. No bruits. Thyroid normal, trachea midline, no adenopathy. Heart--normal S1 and S2. No murmurs, rubs or gallops. Lungs--clear bilaterally, no respiratory distress, no accessory muscle use. Abdomen--normal bowel sounds and soft. Nontender. Nondistended, no hernias or masses, no organomegaly. Extremities--no cyanosis or clubbing. No edema. There are good distal pulses b/l. Dermatologic--improving left V1 distribution shingles rash Neurologic--cranial nerves II through XII grossly intact. Rheumatologic--normal range of motion. Psychiatric--normal affect. Results & Data Results & Data Vital Signs (Past 12 Hours) Vital Signs Temp Pulse Pulse Resp BP BP Pulse Ox 05/23/24 19:00 69 21 150/87 H 97 05/23/24 18:00 05/23/24 17:20 05/23/24 17:20 36.8 C 66 16 202/99 H 99 05/23/24 17:15 67 O2 Del Method 05/23/24 19:00 Room Air 05/23/24 18:00 Room Air 05/23/24 17:20 Room Air 05/23/24 17:20 Room Air 05/23/24 17:15 Laboratory Results Laboratory Results WBC 17.14 K/ul (4.8-10.8) H 05/23/24 17:21 RBC 5.10 M/uL (4.70-6.10) 05/23/24 17:21 Hgb 13.8 g/dl (14.0-18.0) L 05/23/24 17:21 Hct 39.0 % (42.0-52.0) L 05/23/24 17:21 MCV 76.5 fL (80.0-100.0) L 05/23/24 17:21 MCH 27.1 pg (25.0-34.0) 05/23/24 17:21 MCHC 35.4 g/dL (32.0-36.0) 05/23/24 17:21 RDW Std Deviation 33.5 fL (36.4-46.3) L 05/23/24 17:21 RDW Coeff of John 12.4 % (11.5-14.5) 05/23/24 17:21 Plt Count 295 K/uL (130-400) 05/23/24 17:21 MPV 9.3 fL (9.4-12.4) L 05/23/24 17:21 Immature Gran % (Auto) 0.4 % 05/23/24 17:21 Neut % (Auto) 78.9 % 05/23/24 17:21 Lymph % (Auto) 13.4 % 05/23/24 17:21 [place] % (Auto) 5.9 % 05/23/24 17:21 Eos % (Auto) 1.3 % 05/23/24 17:21 Baso % (Auto) 0.1 % 05/23/24 17:21 Neut # (Auto) 13.52 K/uL (1.40-6.50) H 05/23/24 17:21 Lymph # (Auto) 2.29 K/uL (1.20-3.40) 05/23/24 17:21 [place] # (Auto) 1.01 K/uL (0.11-0.59) H 05/23/24 17:21 Eos # (Auto) 0.23 K/uL (0.00-0.50) 05/23/24 17:21 Baso # (Auto) 0.02 K/uL (0.00-0.20) 05/23/24 17:21 Immature Gran # (Auto) 0.07 K/uL (0.01-0.20) 05/23/24 17:21 Sodium 123 mmol/L (136-145) L 05/23/24 17:21 Potassium 4.2 mmol/L (3.5-5.1) 05/23/24 17:21 Chloride 90 mmol/L (98-107) L 05/23/24 17:21 Carbon Dioxide 25 mmol/L (21-32) 05/23/24 17:21 Anion Gap 8 (3-11) 05/23/24 17:21 BUN 13 mg/dl (6-23) 05/23/24 17:21 Creatinine 0.96 mg/dl (0.6-1.4) 05/23/24 17:21 Est Cr Clr Drug Dosing 55.8 ml/min 05/23/24 17:21 eGFR 79.90 05/23/24 17:21 BUN/Creatinine Ratio 13.5 (10-20) 05/23/24 17:21 Glucose 138 mg/dl (70-99(Fasting)) H 05/23/24 17:21 Calcium 9.7 mg/dl (8.6-10.3) 05/23/24 17:21 Total Bilirubin 0.6 mg/dl (0.2-1.0) 05/23/24 17:21 AST 33 U/L (13-39) 05/23/24 17:21 ALT 33 U/L (7-52) 05/23/24 17:21 Alkaline Phosphatase 53 U/L (34-104) 05/23/24 17:21 Troponin I High Sens 6.4 pg/ml (0-20) 05/23/24 17:21 Total Protein 6.9 gm/dl (6.0-8.3) 05/23/24 17:21 Albumin 4.4 gm/dl (3.4-5.0) 05/23/24 17:21 Globulin 2.5 gm/dl (2.5-4.0) 05/23/24 17:21 Albumin/Globulin Ratio 1.8 (0.9-2) 05/23/24 17:21 Lipase 32 U/L (11-82) 05/23/24 17:21 Impressions Chest X-Ray 05/23/24 18:00 XR chest 1V portable CLINICAL HISTORY: Chest pain, nonspecific COMPARISON STUDY: Chest CT January 08, 2016. Chest radiograph November 08, 2022. FINDINGS: Lung volumes are normal. Lungs are clear. There is no pneumothorax or pleural effusion. Cardiac size is normal. Mediastinal contours are normal. There is no evidence for pulmonary edema. IMPRESSION: No acute cardiopulmonary findings. No change in appearance of the chest. ACT 112: Negative or not required by law. Electronically signed by: Taras Cr M.D. 05/23/2024 6:54 PM Code Status & VTE Plan Code Status Full code VTE Prophylaxis Plan VTE Prophylaxis will be ordered: Yes PG Care Time/CCT Total # of Minutes Spent Total Time Spent with Patient: Total time spent is greater than 50% in coordination of care (as documented) at patient's floor/unit and/or counseling patient: Coding Level of Care Code 02290 INT INP/OBS CARE 3/75MIN Diagnoses Hyponatremia E87.1 Herpes zoster virus infection of face and ear nerves B02.29 CAD (coronary artery disease) I25.10 Benign prostatic hyperplasia with urinary obstruction N40.1; N13.8 Fatigue R53.83
[2024-05-23] MEDS: SODIUM CHLORIDE 3 % 150 ML IV ONE (20:27)
[2024-05-23] MEDS ORDERED: ONDANSETRON INJ 2 MG/ML 2 ML VIAL IV PRN (21:24)
[2024-05-23] MEDS ORDERED: ACETAMINOPHEN 325 MG TAB PO PRN (21:24)
[2024-05-23] MEDS ORDERED: NITROGLYCERIN SL 0.4 MG/TAB TAB SL PRN (21:24)
[2024-05-23] MEDS: SODIUM CHLORIDE 1 GM TABLET PO STA (21:33)
[2024-05-23] MEDS: ACYCLOVIR 400 MG TAB PO SCH (22:38)
[2024-05-23] MEDS: CEFDINIR 300 MG CAP PO SCH (22:38)
[2024-05-23] MEDS: TRIFLURIDINE 1% 7.5 ML BTL OPL SCH (22:51)
[2024-05-23] MEDS: BIMATOPROST 0.01% OP SOLN 2.5 ML BTL OPL SCH (22:51)
[2024-05-23 23:28] LABS: BUN Creatinine Ratio 15.3 (10-20); Creatinine Clr Calc Pharmacy 56.2 ml/min; Potassium 4.1 mmol/L (3.5-5.1)
[2024-05-24] MEDS: TIMOLOL MALEATE 0.5% OP SOLN 5 ML BTL OPL SCH (00:09)
[2024-05-24] MEDS: DOCUSATE SODIUM 100 MG CAP PO SCH (00:11)
[2024-05-24] MEDS: LATANOPROST 0.005% OP SOLN 2.5 ML BTL OP SCH (00:12)
[2024-05-24] MEDS: SODIUM CHLORIDE 3 % 50 ML IV ONE ×2 (00:13→04:07)
[2024-05-24] MEDS: BRIMONIDINE TARTRATE 0.2% 5ML OP SCH (00:16)
[2024-05-24] MEDS: prednisoLONE acetate 1% OP SUSP 5 ML BTL OP SCH (00:17)
[2024-05-24 03:17] LABS: Basophils # (auto) 0.02 K/uL (0.00-0.20); Basophils % (auto) 0.2 %; Eosinophils # (auto) 0.17 K/uL (0.00-0.50); Eosinophils % (auto) 1.5 %; Hematocrit (blood only) 35.1 % (42.0-52.0); Hemoglobin 11.9 g/dl (14.0-18.0); Immature Granulocytes # (auto) 0.03 K/uL (0.01-0.20); Immature Granulocytes % (auto) 0.3 %; Lymphocytes # (auto) 2.57 K/uL (1.20-3.40); Lymphocytes % (auto) 22.7 %; Mean Corpuscular Hemoglobin 26.4 pg (25.0-34.0); Mean Corpuscular Hgb Conc 33.9 g/dL (32.0-36.0); Mean Corpuscular Volume 77.8 fL (80.0-100.0); Mean Platelet Volume 8.7 fL (9.4-12.4); Monocytes # (auto) 0.83 K/uL (0.11-0.59); Monocytes % (auto) 7.3 %; Neutrophils # (auto) 7.71 K/uL (1.40-6.50); Platelet Count 243 K/uL (130-400); RDW Coefficient of Variation 12.7 % (11.5-14.5); RDW Standard Deviation 34.9 fL (36.4-46.3); Red Blood Count 4.51 M/uL (4.70-6.10); White Blood Count 11.33 K/ul (4.8-10.8)
[2024-05-24 03:32] LABS: BUN Creatinine Ratio 16.7 (10-20); Calcium 8.7 mg/dl (8.6-10.3); Potassium 4.1 mmol/L (3.5-5.1)
[2024-05-24] MEDS ORDERED: STAT IV/IM STA (03:39)
[2024-05-24] MEDS: LEVOTHYROXINE SODIUM 75 MCG TABLET PO SCH (05:08)
[2024-05-24 07:35] LABS: BUN Creatinine Ratio 17.6 (10-20); Calcium 8.8 mg/dl (8.6-10.3); Potassium 4.5 mmol/L (3.5-5.1)
--- NOTE | 2024-05-24 07:36 | Electrocardiogram Report ---
Test Reason : Blood Pressure : */* mmHG Vent. Rate : 66 BPM Atrial Rate : 66 BPM P-R Int : 156 ms QRS Dur : 86 ms QT Int : 398 ms P-R-T Axes : 47 28 53 degrees QTcB Int : 417 ms Normal sinus rhythm Possible Left atrial enlargement Borderline ECG When compared with ECG of 18-May-2024 21:23, No significant change was found Confirmed by Chirag Costa ([id number]) on 05/24/2024 7:36:37 AM Referred By: REFERRED SELF Confirmed By: Chirag Costa
[2024-05-24] MEDS: CLOPIDOGREL BISULFATE 75 MG TAB PO SCH (08:53)
[2024-05-24] MEDS: ASPIRIN 81 MG ECTAB PO SCH (08:53)
[2024-05-24] MEDS: MULTIVITAMIN TAB PO SCH (08:53)
[2024-05-24] MEDS: CHOLECALCIFEROL 125 MCG (5,000 UNITS) TAB PO SCH (08:53)
[2024-05-24] MEDS: ROSUVASTATIN CALCIUM 20 MG TAB PO SCH (08:54)
[2024-05-24] MEDS ORDERED: SODIUM CHLORIDE 1 GM TABLET PO SCH (09:00)
[2024-05-24] MEDS ORDERED: prednisoLONE acetate 1% OP SUSP 5 ML BTL OP SCH (09:00)
[2024-05-24] MEDS ORDERED: TIMOLOL MALEATE 0.5% OP SOLN 5 ML BTL OPL SCH ×3 (09:00)
[2024-05-24] MEDS ORDERED: BRIMONIDINE TARTRATE 0.2% 5ML OP SCH (09:00)
[2024-05-24] MEDS ORDERED: NON-FORMULARY MEDICATION (Biotin 5 mg capsule) PO SCH (09:00)
--- NOTE | 2024-05-24 09:10 | Nephrology Consultation ---
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 Baseline sodium has been 130 mmol/liter * Patient suffered acute on chronic exacerbation of hyponatremia due to discomfort associated with zoster. * Serum sodium has now corrected back to baseline following 150 cc 3% NaCl * Agree with starting NaCl 1 g p.o. twice daily * Maintain 1500 cc/day free water fluid restriction while hospitalized * Will order Uosm, Mail * Monitor BMP, UO, volume status (2) Syncope: * Likely micturition syncope due to dehydration, straining while using toilet. No further events following admission to the hospital * Continue to monitor cardiac rhythm (3) Herpes zoster virus infection of face and ear nerves: * On acyclovir, Cefdinir, prednisolone eyedrops History of Present Illness Reason for Consultation: Hyponatremia Attending Physician: Daniel Welch DO History of Present Illness Dr. Bowser is being evaluated at the request of the [facility] hospitalist service for evaluation of hyponatremia. Information for the HPI is obtained from direct patient interview and review of the EMR. 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 He reports a known history of chronic hyponatremia with baseline serum sodium 130-132 mmol/L dating back to at least 06/17. He has a known history of hypothyroidism managed with levothyroxine therapy. He denies any prior history of congestive heart failure, cirrhosis, nephrosis or CKD. He has never smoked but does have a history of NHL. Dr. Bowser has not undergone evaluation of his hyponatremia in the past because it has been stable and asymptomatic. Dr. Bowser was last admitted to [facility] 05/18 - 05/22 due to shingles involving the left scalp and eye. He was found to have worsening hyponatremia at that time with serum sodium 116 mmol/L. He was managed with free water fluid restriction and sodium chloride therapy. His serum sodium improved to 126 mmol/L by the time of discharge. Unfortunately after returning home Dr. Bowser reports that he had been dehydrated and constipated. He used the bathroom and strained while having a bowel movement and suffered a syncopal event. He was brought to the emergency department 05/23 for reevaluation. Serum sodium was noted to again be low at 123 mmol/L and Dr. Bowser was readmitted for ongoing medical therapy. The hospitalist service has provided 150 cc 3% NaCl Serum sodium and started NaCl 1 g p.o. twice daily. Serum sodium has improved to 130 mmol/L this a.m. Patient states that he is subjectively improved. He remains on oral acyclovir, cefdinir and prednisolone eyedrops drops for management of his zoster. Allergies Allergy/AdvReac Type Severity Reaction Status Date / Time No Known Allergies Allergy Unknown Verified 05/16/24 14:20 Home Medications Medication Instructions Recorded Confirmed Type biotin 5 mg capsule 5 mg PO DAILY 11/10/19 05/18/24 History cholecalciferol (vitamin D3) 125 125 mcg PO DAILY 11/10/19 05/18/24 History mcg (5,000 unit) capsule multivitamin 1 tab PO DAILY 11/08/22 05/18/24 History aspirin 81 mg tablet,delayed 81 mg PO QAM #30 tabs 11/11/22 05/18/24 Rx release nitroglycerin 0.4 mg sublingual 0.4 mg sublingual Q5M PRN chest 11/11/22 05/18/24 Rx tablet pain #1 btl lisinopril 10 mg tablet 10 mg PO DAILY #90 tabs 06/12/23 05/18/24 Rx clopidogrel 75 mg tablet 75 mg PO DAILY #90 tabs 11/27/23 05/18/24 Rx tadalafil 20 mg tablet (Cialis) 20 mg PO DAILY PRN sexual activity 12/13/23 05/18/24 Rx #30 tabs rosuvastatin 20 mg tablet 20 mg PO DAILY #90 tabs 12/25/23 05/18/24 Rx bimatoprost 0.03 % eye drops 1 drp OPL HS 05/18/24 05/18/24 History levothyroxine 75 mcg tablet 75 mcg PO DAILYBB 05/18/24 05/18/24 History prednisolone acetate 1 % eye 1 drp OPL QID 05/18/24 05/18/24 History drops,suspension timolol maleate 0.5 % eye drops 1 drp OPL QAM 05/18/24 05/18/24 History acyclovir 800 mg tablet 800 mg PO 5XD #17 tabs 05/22/24 Rx cefdinir 300 mg capsule 300 mg PO BID #9 caps 05/22/24 Rx Patient History Medical History Gross hematuria Cloudy urine ST elevation (STEMI) myocardial infarction STEMI (ST elevation myocardial infarction) Surgical History Status post cataract extraction History of tonsillectomy History of repair of rotator cuff History of lithotripsy History of colonoscopy Status post biopsy of skin excisional node biopsy left neck area History of lymph node biopsy lymphadenectomy Family History Father , age 70 Stroke syndrome Stroke Mother , age 55 Hypertension Family history of cervical cancer Ovarian cancer Sister Hypertension Aunt Breast cancer Other Cancer Heart disease Denies family history of Prostate cancer Myocardial infarction Lung cancer Colorectal cancer Social History Smoking Status: Never smoker Second Hand Exposure: No; Do You Dip or Chew Tobacco: No; Hx Alcohol Use: No Hx Substance Use: No Preferred Language: British Communication Ability: Effective Visual Impairment: Limited Hearing Ability: Normal Segmental Paving Supervisor Required: No Beliefs That Will Affect Care: None marital status: Current Living Situation: Spouse Current Living Situation Comment: home w/ 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 Children do You have: 1 Feels Safe at Home: Yes Childhood Exposure to Second-Hand Smoke: Yes (father smoked ) caffeine: Yes (drinks 2-3 cups coffee daily ) Dental Care, Regularly: Yes Physical Activity Frequency: 5-6 Times per Week Seatbelt Use: always Sunscreen Use: No Assistive Devices: None Review of Systems Constitutional: no fever Eyes: no eye pain and no worsening vision Ear, Nose, Mouth, Throat: no problem reported Respiratory: no cough and no dyspnea Cardiovascular: no chest pain Gastrointestinal: no abdominal pain, no nausea, no vomiting and no diarrhea/loose stools Genitourinary: no dysuria, no urinary hesitancy or no hematuria Integumentary: + rash (zoster involving L scalp) Physical Exam Constitutional: not in distress Eyes: PERRL, conjunctivae normal, anicteric sclerae ENMT: external ear and nose normal, oropharynx normal Neck: trachea midline, no thyromegaly Respiratory: normal respiratory effort, lungs clear to auscultation Cardiovascular: RRR, no murmur, no edema Gastrointestinal (Abdomen): normal bowel sounds, soft, nontender, no hepatosplenomegaly Musculoskeletal: Extremities: no cyanosis and no clubbing Skin: + rash (zoster involving L scalp and L p eriorbital area) Neurologic: Speech / Cognition: normal speech and normal cognition Results & Data Vital Signs (Past 12 Hours) Vital Signs Temp Pulse Pulse Resp BP Pulse Ox O2 Del Method 05/24/24 07:09 36.9 C 63 16 126/67 98 Room Air 05/24/24 03:12 36.9 C 72 18 120/72 97 Room Air 05/23/24 23:15 36.7 C 74 18 123/76 97 Room Air 05/23/24 23:00 76 05/23/24 21:30 70 05/23/24 21:20 36.3 C L 70 16 149/72 H 97 Room Air Laboratory Results Laboratory Results WBC 11.33 K/ul (4.8-10.8) H 05/24/24 02:59 RBC 4.51 M/uL (4.70-6.10) L 05/24/24 02:59 Hgb 11.9 g/dl (14.0-18.0) L 05/24/24 02:59 Hct 35.1 % (42.0-52.0) L 05/24/24 02:59 MCV 77.8 fL (80.0-100.0) L 05/24/24 02:59 MCH 26.4 pg (25.0-34.0) 05/24/24 02:59 MCHC 33.9 g/dL (32.0-36.0) 05/24/24 02:59 RDW Std Deviation 34.9 fL (36.4-46.3) L 05/24/24 02:59 RDW Coeff of John 12.7 % (11.5-14.5) 05/24/24 02:59 Plt Count 243 K/uL (130-400) 05/24/24 02:59 MPV 8.7 fL (9.4-12.4) L 05/24/24 02:59 Immature Gran % (Auto) 0.3 % 05/24/24 02:59 Neut % (Auto) 68.0 % 05/24/24 02:59 Lymph % (Auto) 22.7 % 05/24/24 02:59 [place] % (Auto) 7.3 % 05/24/24 02:59 Eos % (Auto) 1.5 % 05/24/24 02:59 Baso % (Auto) 0.2 % 05/24/24 02:59 Neut # (Auto) 7.71 K/uL (1.40-6.50) H 05/24/24 02:59 Lymph # (Auto) 2.57 K/uL (1.20-3.40) 05/24/24 02:59 [place] # (Auto) 0.83 K/uL (0.11-0.59) H 05/24/24 02:59 Eos # (Auto) 0.17 K/uL (0.00-0.50) 05/24/24 02:59 Baso # (Auto) 0.02 K/uL (0.00-0.20) 05/24/24 02:59 Immature Gran # (Auto) 0.03 K/uL (0.01-0.20) 05/24/24 02:59 Sodium 130 mmol/L (136-145) L 05/24/24 07:00 Potassium 4.5 mmol/L (3.5-5.1) 05/24/24 07:00 Chloride 97 mmol/L (98-107) L 05/24/24 07:00 Carbon Dioxide 26 mmol/L (21-32) 05/24/24 07:00 Anion Gap 7 (3-11) 05/24/24 07:00 BUN 19 mg/dl (6-23) 05/24/24 07:00 Creatinine 1.08 mg/dl (0.6-1.4) 05/24/24 07:00 Est Cr Clr Drug Dosing 51.0 ml/min 05/24/24 07:00 eGFR 69.37 05/24/24 07:00 BUN/Creatinine Ratio 17.6 (10-20) 05/24/24 07:00 Glucose 107 mg/dl (70-99(Fasting)) H 05/24/24 07:00 Calcium 8.8 mg/dl (8.6-10.3) 05/24/24 07:00 Magnesium 2.0 mg/dl (1.7-2.4) 05/24/24 02:59 Total Bilirubin 0.6 mg/dl (0.2-1.0) 05/23/24 17:21 AST 33 U/L (13-39) 05/23/24 17:21 ALT 33 U/L (7-52) 05/23/24 17:21 Alkaline Phosphatase 53 U/L (34-104) 05/23/24 17:21 Troponin I High Sens 6.4 pg/ml (0-20) 05/23/24 17:21 Total Protein 6.9 gm/dl (6.0-8.3) 05/23/24 17:21 Albumin 4.4 gm/dl (3.4-5.0) 05/23/24 17:21 Globulin 2.5 gm/dl (2.5-4.0) 05/23/24 17:21 Albumin/Globulin Ratio 1.8 (0.9-2) 05/23/24 17:21 Lipase 32 U/L (11-82) 05/23/24 17:21 Impressions Chest X-Ray 05/23/24 18:00 XR chest 1V portable CLINICAL HISTORY: Chest pain, nonspecific COMPARISON STUDY: Chest CT January 08, 2016. Chest radiograph November 08, 2022. FINDINGS: Lung volumes are normal. Lungs are clear. There is no pneumothorax or pleural effusion. Cardiac size is normal. Mediastinal contours are normal. There is no evidence for pulmonary edema. IMPRESSION: No acute cardiopulmonary findings. No change in appearance of the chest. ACT 112: Negative or not required by law. Electronically signed by: Taras Cr M.D. 05/23/2024 6:54 PM PG Care Time/CCT Total # of Minutes Spent Total Time Spent with Patient: Total time spent is greater than 50% in coordination of care (as documented) at patient's floor/unit and/or counseling patient: Coding Level of Care Code 03167 IN/OBS CONSULT LVL 5,80M Diagnoses Acute hyponatremia E87.1 Syncope R55 Syncope type: unspecified Herpes zoster virus infection of face and ear nerves B02.29 (2) Syncope Syncope type: unspecified Qualified Code(s): R55 - Syncope and collapse
--- NOTE | 2024-05-24 10:24 | Hospitalist Progress Note ---
Date of Service May 24, 2024 Assessment & Plan (1) Acute hyponatremia: (2) Syncope: (3) Fatigue: (4) Herpes zoster virus infection of face and ear nerves: Plan 79-year-old male with a past history including CAD, hyponatremia, chronic prostatitis, BPH that UTS, hypothyroidism, non-Hodgkin's lymphoma, hyperlipidemia, hypertension, anemia and glaucoma. Here due to hyponatremia ans near syncopal episode Hyponatremia: Sodium on 05/22 was 127 4-1/2 hours later, in the ED this evening, sodium is decreased to 123. Patient reports he drinks some juice, because he was concerned about having a bowel movement, for which he also took a Dulcolax suppository. Sodium chloride tablets 1 g p.o. twice daily s/p 150 mL of 3% hypertonic saline + 50 ml Low serum osmolality UA pending, Uosm and U Na pending BMP every 4 hours Nephrology consulted, aprec recommendations Fluid restriction of 1500 mL Near syncopal episode: Likely combination of low sodium and Valsalva associated with attempted bowel movements with little oral intake Telemetry serial cardiac enzymes negative. EKG negative Herpes zoster left V1 distribution: Rash is significantly improving, but still some mild pain Continue acyclovir 800 mg p.o. 5 times daily Stop topical prednisolone eyedrops Resume trifluridine 1 drop in left eye every 4 hours while awake Patient to follow-up in outpatient setting with ophthalmology CAD/hypertension: Continue aspirin, clopidogrel Hold lisinopril FEN: [Regular, Fluid restriction Code status: full code DVT ppx: SCDs Held home meds: Lisinopri Dispo: Telemetry Admission and Anticipated Discharge Date Admission Date: May 23, 2024 Supervising Physician Co-Signing Physician Notes I personally examined the patient and verified all patel points of history and exam, discussed case, and agree with decision making with Dr Galen Vela feeling better eating better walking around well. updated pt and to the best of my ability vitals noted nad heent nc at mmm breathing unlabored no accessory muscles good effort skin no rashes no pallor or icterus syncope - seems to have been vasovagal - prolonged due to the way he slumped forward and unable to really move him to floor meaning he was more upright - fortunately no sequella hyponatremia - chronically mild, acute recently from poor PO intake - sudden drop from 127-123 yesterday - ?surge of ADH due to hypotension from prolonged vagal episode? improving watch into tomorrow ambulation / follow PO intake hopefully home tomorrow Subjective Patient seem this morning. No complains. Had a bowel movement yesterday in the ED. Feel better, pain is mild. Denied any SOB, chest pain or palpitations, headaches. Refers no excessive drinking yesterday before admission. Eating ok, Drinking ok. He continue to be on fluid restriction. Review of Systems Review of Systems: as per HPI Physical Exam Constitutional: WD/WN, vitals as above Eyes: PERRL, conjunctivae normal, anicteric sclerae Respiratory: normal respiratory effort, lungs clear to auscultation Cardiovascular: RRR, no murmur, no edema Musculoskeletal: no cyanosis or clubbing, extremities motor strength 5/5 Results & Data Results & Data Vital Signs (Past 12 Hours) Vital Signs Temp Pulse Pulse Resp BP Pulse Ox O2 Del Method 05/24/24 07:09 36.9 C 63 16 126/67 98 Room Air 05/24/24 03:12 36.9 C 72 18 120/72 97 Room Air 05/23/24 23:15 36.7 C 74 18 123/76 97 Room Air 05/23/24 23:00 76 Resident Activity Tracking Resident Involvement: Resident Care Provided Care Provided: Adult Hospital Medicine (2) Syncope Syncope type: unspecified Qualified Code(s): R55 - Syncope and collapse
[2024-05-24 11:21] LABS: Calcium 9.3 mg/dl (8.6-10.3); Creatinine Clr Calc Pharmacy 55.1 ml/min; Potassium 3.8 mmol/L (3.5-5.1)
[2024-05-24] MEDS: SODIUM CHLORIDE 1 GM TABLET PO SCH (11:45)
[2024-05-24 13:42] LABS: Appearance Urine Cloudy (Clear); Bacteria Urine Automated None Seen (None Seen); Bilirubin Urine Negative (Negative); Blood Urine Negative (Negative); Cast Urine Automated 0-2 /lpf (0-2); Color Urine Yellow; Epithelial Cell Urine Auto 0-2 /hpf (0-2); Glucose Urine UA Negative (Negative); Ketones Urine Negative (Negative); Leukocyte Esterase Urine Negative (Negative); Nitrite Urine Negative (Negative); Protein Urine Negative (Negative); Specific Gravity Urine 1.014 (1.000-1.030); Urobilinogen Urine Negative (Negative); WBC Urine Automated 0-5 /hpf (0-5)
[2024-05-24 15:16] LABS: BUN Creatinine Ratio 23.4 (10-20); Calcium 8.7 mg/dl (8.6-10.3); Creatinine Clr Calc Pharmacy 58.6 ml/min; Potassium 3.8 mmol/L (3.5-5.1)
--- NOTE | 2024-05-24 15:54 | Billing Data ---
Date of Service May 24, 2024 Coding Level of Care Code 66434 SUB INP/OBS CARE
[2024-05-24] MEDS ORDERED: LATANOPROST 0.005% OP SOLN 2.5 ML BTL OP SCH (21:00)
[2024-05-25 06:56] LABS: Basophils # (auto) 0.02 K/uL (0.00-0.20); Basophils % (auto) 0.3 %; Eosinophils # (auto) 0.22 K/uL (0.00-0.50); Eosinophils % (auto) 3.1 %; Hematocrit (blood only) 34.1 % (42.0-52.0); Immature Granulocytes # (auto) 0.02 K/uL (0.01-0.20); Immature Granulocytes % (auto) 0.3 %; Lymphocytes # (auto) 2.26 K/uL (1.20-3.40); Lymphocytes % (auto) 32.1 %; Mean Corpuscular Hgb Conc 35.2 g/dL (32.0-36.0); Mean Corpuscular Volume 76.6 fL (80.0-100.0); Mean Platelet Volume 9.1 fL (9.4-12.4); Monocytes # (auto) 0.63 K/uL (0.11-0.59); Monocytes % (auto) 8.9 %; Neutrophils % (auto) 55.3 %; Platelet Count 239 K/uL (130-400); RDW Coefficient of Variation 12.9 % (11.5-14.5); RDW Standard Deviation 34.3 fL (36.4-46.3); Red Blood Count 4.45 M/uL (4.70-6.10); White Blood Count 7.05 K/ul (4.8-10.8)
[2024-05-25 07:12] LABS: BUN Creatinine Ratio 20.2 (10-20); Calcium 8.8 mg/dl (8.6-10.3); Creatinine Clr Calc Pharmacy 61.9 ml/min; Potassium 4.1 mmol/L (3.5-5.1)
[2024-05-25 07:26] VITALS: O2SAT 98
--- NOTE | 2024-05-25 09:10 | Nephrology Progress Note ---
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 Baseline sodium has been 130 mmol/liter * Patient suffered acute on chronic exacerbation of hyponatremia due to disco mfort associated with zoster. * Serum sodium has now corrected back to baseline following 150 cc 3% NaCl * Continue NaCl 1 g p.o. twice daily * Maintain 1500 cc/day free water fluid restriction * Will start bumetanide 0.5 mg p.o. twice daily to help lower urine osmolality * Patient reports that he may be discharged to home today. I have placed orders in the outpatient EMR for BMP, Uosm to be completed prior to nephrology outpatient visit. I have sent a task to my transit authority police officer staff to contact Dr. Bowser and schedule a hospital follow-up within 7-14 days. (2) Syncope: Plan: * Likely micturition syncope due to dehydration, straining while using toilet. No further events following admission to the hospital * Continue to monitor cardiac rhythm (3) Herpes zoster virus infection of face and ear nerves: Plan: * On acyclovir, Cefdinir, prednisolone eyedrops Admission and Anticipated Discharge Date Admission Date: May 23, [address] Bowser was evaluated in his hospital room this morning. He states that he is tolerating salt tablets without GI upset. He hopes to be discharged to home later this afternoon. Review of Systems Constitutional: no fever Eyes: no eye pain and no worsening vision Ear, Nose, Mouth, Throat: no problem reported Respiratory: no cough and no dyspnea Cardiovascular: no chest pain Gastrointestinal: no abdominal pain, no nausea, no vomiting and no diarrhea/loose stools Genitourinary: no dysuria, no urinary hesitancy or no hematuria Integumentary: + rash (zoster involving L scalp) Physical Exam Constitutional: not in distress Eyes: PERRL, conjunctivae normal, anicteric sclerae ENMT: external ear and nose normal, oropharynx normal Neck: trachea midline, no thyromegaly Respiratory: normal respiratory effort, lungs clear to auscultation Cardiovascular: RRR, no murmur, no edema Gastrointestinal (Abdomen): normal bowel sounds, soft, nontender, no hepatosplenomegaly Musculoskeletal: Extremities: no cyanosis and no clubbing Skin: + rash (zoster involving L scalp and L p eriorbital area) Neurologic: Speech / Cognition: normal speech and normal cognition Results & Data Vital Signs (Past 12 Hours) Vital Signs Temp Pulse Pulse Resp BP Pulse Ox O2 Del Method 05/25/24 07:25 36.7 C 66 18 160/86 H 98 Room Air 05/25/24 02:59 36.9 C 67 18 171/98 H 99 Room Air 05/24/24 22:48 63 05/24/24 22:46 36.8 C 62 18 166/88 H 99 Room Air Laboratory Results Laboratory Results - last 24 hr 05/24/24 05/24/24 05/24/24 07:05 10:34 13:09 WBC RBC Hgb Hct MCV MCH MCHC RDW Std Deviation RDW Coeff of John Plt Count MPV Immature Gran % (Auto) Neut % (Auto) Lymph % (Auto) [place] % (Auto) Eos % (Auto) Baso % (Auto) Neut # (Auto) Lymph # (Auto) [place] # (Auto) Eos # (Auto) Baso # (Auto) Immature Gran # (Auto) Sodium 130 L Potassium 3.8 Chloride 97 L Carbon Dioxide 28 Anion Gap 5 BUN 20 Creatinine 1.00 Est Cr Clr Drug Dosing 55.1 eGFR 76.08 BUN/Creatinine Ratio 20.0 Glucose 87 Osmolality 267 L Calcium 9.3 Urine Color Yellow Urine Appearance Cloudy A Urine pH 7.0 Ur Specific [place] 1.014 Urine Protein Negative Urine Glucose (UA) Negative Urine Ketones Negative Urine Blood Negative Urine Nitrite Negative Urine Bilirubin Negative Urine Urobilinogen Negative Ur Leukocyte Esterase Negative Urine WBC (Auto) 0-5 Urine RBC (Auto) 6-10 H U Hyaline Cast (Auto) 0-2 U Epithel Cells (Auto) 0-2 Urine Bacteria (Auto) None Seen Urine Osmolality 415 L Ur Random Sodium 51 05/24/24 05/25/24 14:43 06:04 WBC 7.05 RBC 4.45 L Hgb 12.0 L Hct 34.1 L MCV 76.6 L MCH 27.0 MCHC 35.2 RDW Std Deviation 34.3 L RDW Coeff of John 12.9 Plt Count 239 MPV 9.1 L Immature Gran % (Auto) 0.3 Neut % (Auto) 55.3 Lymph % (Auto) 32.1 [place] % (Auto) 8.9 Eos % (Auto) 3.1 Baso % (Auto) 0.3 Neut # (Auto) 3.90 Lymph # (Auto) 2.26 [place] # (Auto) 0.63 H Eos # (Auto) 0.22 Baso # (Auto) 0.02 Immature Gran # (Auto) 0.02 Sodium 128 L 130 L Potassium 3.8 4.1 Chloride 97 L 98 Carbon Dioxide 26 25 Anion Gap 5 7 BUN 22 18 Creatinine 0.94 0.89 Est Cr Clr Drug Dosing 58.6 61.9 eGFR 81.95 86.63 BUN/Creatinine Ratio 23.4 H 20.2 H Glucose 155 H 105 H Osmolality Calcium 8.7 8.8 Urine Color Urine Appearance Urine pH Ur Specific [place] Urine Protein Urine Glucose (UA) Urine Ketones Urine Blood Urine Nitrite Urine Bilirubin Urine Urobilinogen Ur Leukocyte Esterase Urine WBC (Auto) Urine RBC (Auto) U Hyaline Cast (Auto) U Epithel Cells (Auto) Urine Bacteria (Auto) Urine Osmolality Ur Random Sodium PG Care Time/CCT Total # of Minutes Spent Total Time Spent with Patient: Total time spent is greater than 50% in coordination of care (as documented) at patient's floor/unit and/or counseling patient: Coding Level of Care Code 43557 SUB INP/OBS CARE 3/50MIN Diagnoses Acute hyponatremia E87.1 Syncope R55 Syncope type: unspecified Herpes zoster virus infection of face and ear nerves B02.29 (2) Syncope Syncope type: unspecified Qualified Code(s): R55 - Syncope and collapse
[2024-05-25] MEDS: BUMETANIDE 1 MG TAB PO SCH (10:10)
[2024-05-25 10:54] VITALS: BP 143/71; PULSE 68; RESP 16; TEMP 97.9
--- NOTE | 2024-05-25 12:16 | Discharge Summary ---
Date of Service May 25, 2024 Admission HPI Per Admitting Provider The patient is an 79-year-old male with a past history including CAD, hyponatremia, chronic prostatitis, BPH that UTS, hypothyroidism, non-Hodgkin's lymphoma, hyperlipidemia, hypertension, anemia and glaucoma. He was most recently admitted to [facility] 05/18-05/18/2024 for acute on chronic hyponatremia and herpes zoster left V1 distribution. His oral intake has still been low, but liquids and solids. His sodium upon recheck at 1250 today was 127, and now 4 and half hours later, is down to 123. He reports that he drank some juice this afternoon, but denies any excessive intake. Principal Diagnosis Hyponatremia Discharge Exam Constitutional WD/WN, vitals as above Eyes PERRL, conjunctivae normal, anicteric sclerae Respiratory normal respiratory effort, lungs clear to auscultation Cardiovascular RRR, no murmur, no edema Musculoskeletal no cyanosis or clubbing, extremities motor strength 5/5 Discharge Data Allergies Allergy/AdvReac Type Severity Reaction Status Date / Time No Known Allergies Allergy Unknown Verified 05/16/24 14:20 Consultations 05/23/24 19:17 ED Decision to Admit Stat 05/24/24 07:28 Consult Nephrology Routine Hospital Course (1) Acute hyponatremia: (2) Syncope: (3) Fatigue: (4) Herpes zoster virus infection of face and ear nerves: Plan 79-year-old male with a past history including CAD, hyponatremia, chronic prostatitis, BPH that UTS, hypothyroidism, non-Hodgkin's lymphoma, hyperlipidemia, hypertension, anemia and glaucoma. Here due to hyponatremia ans near syncopal episode Hyponatremia: - Acute on chronic - Back to baseline after IV 3% hypertonic saline - Nephrology consulted: - bumetanide 0.5 mg p.o. twice daily to help lower urine osmolality added - patient deferred at discharge. - continue NaCl 1 g twice a day daily - hospital follow up in 7-14 days in outpatient clinic - Continue fluid restriction 1500cc/day - [facility] outpatient sent - Follow up with PCP within a week Near syncopal episode: Likely combination of low sodium and Valsalva associated with attempted bowel movements with little oral intake No new events Herpes zoster left V1 distribution - improving Continue acyclovir 800 mg p.o. 5 times daily until 05/25 CAD/hypertension: Continue aspirin, clopidogrel Total Time Total Time Spent Total Time Spent (In Minutes): <30 Discharge Plan Discharge Items Patient Disposition: Home - Self-Care Reason For Visit: HYPONTREMIA, HERPES ZOSTER V1 LEFT EYE, SYNCOPE Discharge Diagnosis: Hyponatremia Activity: Per Instructions section Non-emergency contact: Primary Care Provider Call non-emergency contact if: you have any medication questions and your symptoms worsen Follow-up/Referrals: Michael Vasquez, [Primary Care Provider] - Diet: Regular Ambulatory Orders: Basic Metabolic Panel (Routine) Timeframe: 3 Days Location: Determined by Patient Ordered By: Claire Vela Osmolality Urine (Routine) Timeframe: 3 Days Location: Determined by Patient Ordered By: Claire Vela Addtl Attending Provider Instructions: You were admitted due to worsening hyponatremia and syncope. The syncope was secondary to dehydration and straining (this caused a vasovagal response).Your sodium went back to baseline (130) with fluid restriction, salt tablets and IV fluids. - Continue taking the salt tablets 1 gram twice a day - Maintain 1500cc/ day - BMP was ordered as an outpatient to complete before the outpatient nephrology visit. -Dr. Belcher office will contact you for a hospital follow up within 7-14 days - Continue taking the acyclovir until 05/25 as per previous instructions - Continue taking Cefdinir as previously recommended (until 05/26) Follow up with your PCP within a week Pending Studies at Discharge: No Stand-Alone Forms: My [facility] [employer], Smoking Cessation Medications and DC Order Prescriptions: New sodium chloride 1,000 mg Tablet,Soluble 1,000 mg PO BID 30 Days Qty: 60 0RF Continued lisinopril 10 mg tablet 10 mg PO DAILY Qty: 90 3RF rosuvastatin 20 mg tablet 20 mg PO DAILY Qty: 90 3RF clopidogrel 75 mg tablet 75 mg PO DAILY Qty: 90 3RF biotin 5 mg capsule 5 mg PO DAILY cholecalciferol (vitamin D3) 125 mcg (5,000 unit) capsule 125 mcg PO DAILY tadalafil [Cialis] 20 mg tablet 20 mg PO DAILY PRN (Reason: sexual activity) Qty: 30 0RF Rx Instructions: administer approximately 30min before sexual activity; do not use more than 1 dose per 24hrs multivitamin Tablet 1 tab PO DAILY aspirin 81 mg Tablet,Delayed Release (Dr/Ec) 81 mg PO QAM Qty: 30 5RF Rx Instructions: purchase [id number] nitroglycerin 0.4 mg tablet, sublingual 0.4 mg sublingual Q5M PRN (Reason: chest pain) Qty: 1 0RF Rx Instructions: maximum 3 doses in 15 minutes. levothyroxine 75 mcg tablet 75 mcg PO DAILYBB bimatoprost 0.03 % drops 1 drp OPL HS prednisolone acetate 1 % Drops,Suspension 1 drp OPL QID timolol maleate 0.5 % drops 1 drp OPL QAM cefdinir 300 mg Capsule 300 mg PO BID Qty: 9 0RF acyclovir 800 mg tablet 800 mg PO 5XD Qty: 17 0RF Rx Instructions: space evenly during waking hours Discharge Orders: Discharge Order (Routine); Ordered 05/25/24 Ordered By: Claire Vela Admission Data Admit Date/Time: 05/23/24 20:06 Attending Provider: Daniel Welch Admit Provider: Emigdio Wright Primary Care Provider: Michael Vasquez Other Providers: Emigdio Wright; Jefyr Belcher Other Interventions: Discharge Summary Assessment (RN) Last Done: 05/25/24 13:43 Supervising Physician Co-Signing Physician Notes I personally examined the patient and verified all patel points of history and exam, discussed case, and agree with decision making with Dr Galen Vela feels better feels up to going home vitals noted nad heent nc at mmm breathing unlabored no accessory muscles good effort skin no rashes no pallor or icterus syncope - seems to have been vasovagal - prolonged due to the way he slumped forward and unable to really move him to floor meaning he was more upright - fortunately no sequella, stable for home hyponatremia - chronically mild, acute recently from poor PO intake - sudden drop from 127-123 yesterday - ?surge of ADH due to hypotension from prolonged vagal episode? improved, stable for home safe/stable for home, outpt f/u pt/ expressed concern on diuretics - understandable - discussed rationale with correction of sodium but also discussed risk/benefit and that it's reasonable to not use if he's feeling well
--- NOTE | 2024-05-25 15:03 | Billing Data ---
Date of Service May 25, 2024 Coding Level of Care Code 35054 IN/OBS DISCH 30 MIN/LESS
== END 2024-05-25 13:44 | disposition home or self-care (01) | DRG 641 ==
LOC: ED 17:05 → SUATTDRO 20:06 → 2S 20:06